=== PATIENT | female | born 1960 | race Caucasian/White ===

== ENCOUNTER 2017-07-12 05:24 | Emergency (ER) | payer BC, SELFPAY ==
[2017-07-12 05:29] VITALS: BP 166/97; PULSE 112; RESP 18; TEMP 36.5; O2SAT 96; BMI 48.9
--- NOTE | 2017-07-12 05:45 | CT_ITS ---
CT abdomen pelvis wo con CLINICAL INDICATION: Abdominal pain, epigastric pain ITS.REASON: pain ORDERING PHYSICIAN: Dario Cook MD PATIENT AGE: 57 years COMPARISON: 04/19/2014 TECHNIQUE: Axial images obtained with sagittal and coronal reformats. PROCEDURE: Oral Contrast: None IV Contrast: None . FINDINGS: Lung bases are clear. Diffuse hepatic steatosis. No focal liver lesion apparent. No radio opaque gallstones. The spleen, adrenal glands, pancreas, kidneys, ureters, and urinary bladder have an unremarkable unenhanced CT appearance. No intestinal obstruction or free air. No evidence of appendicitis or diverticulitis. There are scant colonic diverticula. No intestinal obstruction or free air. There is been prior fusion of L4 and L5. No acute bony anomalies. IMPRESSION: 1. No acute abdominal pelvic findings. 2. Fatty liver. 3. Postsurgical changes L4 and L5 Lower thorax: No acute finding ABDOMEN: Liver: No masses or biliary dilatation. Gallbladder: Nondistended. No radio opaque stones. Pancreas: No masses or peripancreatic fluid collections. Spleen: Unremarkable. Adrenals: Unremarkable Kidneys/ureters: No masses. No renal calculi. No hydronephrosis. No perinephric fluid collections. No ureteral dilatation or obvious ureteral calculi. Stomach bowel: Nondistended. No obvious mass or thickening. Appendix: No evidence of appendicitis. PELVIS: Reproductive: Unremarkable Bladder: Nondistended. No obvious stones or masses. ABDOMEN & PELVIS: Peritoneum: No abnormal fluid collections. No obvious inflammatory changes. No free air. Lymph nodes: No enlarged lymph nodes apparent. Vasculature: No evidence of abdominal aortic aneurysm. No retroperitoneal hemorrhage evident. Bones: No acute fracture IMPRESSION: Negative, no acute intra-abdominal or pelvic pathology apparent
--- NOTE | 2017-07-12 06:09 | HMH.EDGENADL ---
ED Disposition Clinical Impression: Abdominal pain Qualifiers: Abdominal location: epigastric Qualified Code(s): R10.13 - Epigastric pain Disposition: Home, Self-Care Condition on Discharge: Good Instructions: DI for Acute Abdomen Additional Instructions: call pcp for follow up - Critical Care Critical Care Time: No Attestation: On 07/12/17, the high probability of a clinically significant, sudden or life threatening deterioration of the following system(s) required my full and direct attention, intervention and personal management. The time I documented below is in addition to time spent performing reported procedures but includes the following listed in this critical care notation. Medical Decision Making - Medical Records Medical records reviewed: Yes: I reviewed the patient's medical records. Vital Signs: 07/12/17 05:29 Temperature 97.7 F Temperature Source Oral Pulse Rate [Left Radial] 112 H Respiratory Rate 18 Blood Pressure [Right Arm] 166/97 Blood Pressure Mean [Right Arm] 120 Blood Pressure Source [Right Arm] Automatic Cuff Blood Pressure Position [Right Arm] Sitting 02 Sat by Pulse Oximetry 96 Oxygen Delivery Method Room Air - Lab Data Lab results reviewed: Yes: I reviewed the patient's lab results. Lab Results 07/12/17 06:00: WBC 5.2, RBC 5.08, Hgb 14.6, Hct 44.0, MCV 86.6, MCH 28.8, MCHC 33.2, RDW 13.6, Plt Count 189, MPV 8.3, Neut % (Auto) 51.1, Lymph % (Auto) 39.4, Humphreys % (Auto) 5.4, Eos % (Auto) 3.2, Baso % (Auto) 0.8, Neut # (Auto) 2.6, Lymph # (Auto) 2.0, Humphreys # (Auto) 0.3, Eos # (Auto) 0.2, Baso # (Auto) 0.0 07/12/17 06:00: Sodium 145, Potassium 4.0, Chloride 109 H, Carbon Dioxide 27, Anion Gap 13.0, BUN 17, Creatinine 0.85, Estimated Creat Clear 64, Estimated GFR 69, Est GFR ( Amer) 84, Glucose 130 H, Calcium 10.0, Total Bilirubin 0.4, AST 53 H, ALT 78, Alkaline Phosphatase 69, Total Creatine Kinase 99, CK-MB (CK-2) < 0.5, CK-MB (CK-2) Rel Index 0.5, Troponin I < 0.02, Total Protein 7.8, Albumin 3.8, Globulin 4.0 H, Albumin/Globulin Ratio 1.0 L, Amylase 37 07/12/17 06:00: Lipase 156 Result diagrams: 07/12/17 06:00 07/12/17 06:00 Orders (Tests/Meds): ED MEDICATIONS Discontinued Medications Generic Name Dose Route Start Last Admin Trade Name Joaquina PRN Reason Stop Dose Admin Famotidine 20 mg 07/12/17 07:45 Pepcid 20mg/2ml Vial IV 07/12/17 07:46 ONCE ONE Metoclopramide HCl 10 mg 07/12/17 07:45 Reglan 10mg/2ml Vial IVP 07/12/17 07:46 ONCE ONE ORDERS Category Date Time Status CT abdomen pelvis wo con Stat Cat Scan 07/12/17 05:45 Taken - CT Data CT Scan: Abdomen, Pelvis Time Received: 07:[address] Reviewed: Yes: I have viewed the radiologist's interpretation Preliminary Findings: Normal/NAD - ECG Data Tracing #1 I reviewed this ECG and interpreted as documented below: Arrhythmias present: sinus tach Ischemic changes: non-specific ST-T wave changes - Kt Inquiry Pt receiving controlled substance: No General Adult HPI - General Chief complaint: Abdominal Pain Stated complaint: Upper Abdominal Pain Time Seen by Provider: 07/12/17 06:09 Mode of Arrival: Ambulatory Source of Information: Patient, Spouse, Medical Record Limitations: No Limitations Description of Symptoms (Recalled from ER Triage Doc. by RN): epigastric pain into chest - History of Present Illness HPI narrative: epigastric pain since yesterday with no fever or melena Onset (ago): day(s) Location: abdomen Radiation: non-radiation Severity: moderate - Related Data Home Medications Medication Instructions Recorded Confirmed Lovastatin [Lovastatin] 10 mg pe PO HS 07/12/17 07/12/17 dilTIAZem HCl [Diltiazem HCl] 120 mg PO DAILY 07/12/17 07/12/17 raNITIdine HCl [Ranitidine HCl] 150 mg PO DAILY 07/12/17 07/12/17 Allergies Allergy/AdvReac Type Severity Reaction Status Date / Time meperidine [From DEMEROL] Allergy Mild Verifi
[2017-07-12 06:16] LABS: Basophils % 0.8 % (0.1-2.0); Eosinophils # 0.2 K/mm3 (0.0-0.4); Eosinophils % 3.2 % (0.1-12.0); Hemoglobin 14.6 g/dL (12.2-16.2); Lymphocytes % 39.4 K/mm3 (10-50); Mean Corpuscular HGB Conc 33.2 g/dL (31.8-35.4); Mean Corpuscular Hemoglobin 28.8 pg (27.0-31.2); Mean Corpuscular Volume 86.6 fl (81-99); Mean Platelet Volume 8.3 fl (7.4-10.4); Monocytes # 0.3 K/mm3 (0.1-1.0); Monocytes % 5.4 % (1.7-9.3); Neutrophils # 2.6 K/mm3 (1.8-7.8); Neutrophils % 51.1 % (37.0-80.0); Platelet Count 189 K/mm3 (142-424); Red Blood Count 5.08 M/mm3 (4.20-5.40); Red Cell Distribution Width 13.6 % (11.5-17.5); White Blood Count 5.2 K/mm3 (4.8-10.8)
[2017-07-12 06:49] LABS: Alanine Aminotransferase 78 U/L (12-78); Albumin Level 3.8 gm/dL (3.4-5.0); Alkaline Phosphatase 69 U/L (46-116); Amylase 37 U/L (25-125); Aspartate Amino Transferase 53 U/L (15-37); Bilirubin,Total 0.4 mg/dL (0.2-1.0); Blood Urea Nitrogen 17 mg/dL (7-18); CKMB Relative Index 0.5 U/L (0-4.0); Carbon Dioxide 27 mmol/L (21.0-32.0); Chloride 109 mmol/L (98-107); Creatine Kinase 99 U/L (26-192); Creatine Kinase MB < 0.5 mg/ml (0.0-3.6); Creatinine Clearance Estimated 64 mL/min (0-300); Creatinine,Serum 0.85 mg/dL (0.55-1.02); Estimated Glomerular Filt Rate 69 ml/min (>60); GFR (African American) 84 ML/MIN (>60); Glucose 130 mg/dL (74-106); Sodium 145 mmol/L (136-145); Total Protein,Serum 7.8 gm/dL (6.4-8.2); Troponin I < 0.02 ng/ml (0.00-0.06)
[2017-07-12 06:51] LABS: Lipase 156 u/L (73-393)
[2017-07-12 07:54] VITALS: BP 121/70; PULSE 69; RESP 18; TEMP 36.6; O2SAT 98
[2017-07-12 08:30] VITALS: BP 121/70; PULSE 62; RESP 16; TEMP 36.6
== END 2017-07-12 08:29 | disposition home or self-care (01) ==
PROVIDERS: Emergency Provider Emergency Medicine; Family Provider Emergency Medicine
DX: R10.13 Epigastric pain (principal); Z85.828 Personal history of other malignant neoplasm of skin; Z79.899 Other long term (current) drug therapy
CPT/HCPCS: 74176; 80053; 82150; 82550; 82553; 83690; 84484; 85025; 93005; 93041; 96374; 96375; 99284

== ENCOUNTER 2017-09-03 12:10 | Emergency (ER) | payer BC, SELFPAY ==
[2017-09-03 12:31] VITALS: BP 180/90; PULSE 102; RESP 20; TEMP 37.2; O2SAT 98; BMI 48.9
--- NOTE | 2017-09-03 12:38 | HMH.EDUTC ---
[facility] [place] Disposition Clinical Impression: Vertigo Sinusitis Qualifiers: Sinusitis location: other Chronicity: unspecified Qualified Code(s): J32.9 - Chronic sinusitis, unspecified Disposition: Home, Self-Care Condition on Discharge: Good Instructions: Vertigo (Alternative Therapy), Sinusitis, Sinus Headache, DI for Sinusitis, DI for Vertigo Additional Instructions: Start antibiotic. Sinus infections may take 2-3 days to notice much improvement so be sure to use conservative measures as discussed for symptoms Flonase 2 spray in each nostril daily to help with nasal congestion, sinus an ear pressure/inflammation Lots of Fluids Sleep elevated Humidifer/vaporizer Prescriptions: cephALEXin [Keflex 500mg Cap] 500 mg PO BID #20 cap Fluticasone Propionate [Flonase 50mcg nasal spray 16gm] 2 spr NS DAILY #1 bottle Meclizine HCl [Meclizine 25mg Tab] 25 mg PO BID #20 tab Referrals: Dario Cook MD [Primary Care Provider] - As needed (follow up in 24-48 hours or sooner if no improvement or worsening of symptoms) Time of Disposition: 13:24 Medical Decision Making - Medical Records Medical records reviewed: Yes: I reviewed the patient's medical records. - Kt Inquiry Pt receiving controlled substance: No Kt was queried for this patient: No Vital Signs: 09/03/17 12:31 Temperature 99 F Temperature Source Oral Pulse Rate [Right Brachial] 102 H Respiratory Rate 20 Blood Pressure [Right Arm] 180/90 Blood Pressure Mean [Right Arm] 120 Blood Pressure Source [Right Arm] Automatic Cuff Blood Pressure Position [Right Arm] Sitting 02 Sat by Pulse Oximetry 98 Oxygen Delivery Method Room Air - Lab Data Lab results reviewed: Yes: I reviewed the patient's lab results. Orders (Tests/Meds): ED MEDICATIONS Discontinued Medications Generic Name Dose Route Start Last Admin Trade Name Freq PRN Reason Stop Dose Admin Meclizine HCl 25 mg 09/03/17 12:49 09/03/17 12:51 Antivert 25mg Tablet PO 09/03/17 12:50 25 mg ONCE ONE Administration - Reevaluation(s) Time: 13:19 Reevaluation #1: Patient states that her dizziness is feeling better after medication Patient state that she is allergic to Penicillins but able to take Cephosporins without complications or reactions [facility] [place] HPI - General Stated complaint: dizzy Time Seen by Provider: 09/03/17 12:45 Mode of Arrival: Family Vehicle Source of Information: Patient Limitations: No Limitations Description of Symptoms (Recalled from Triage Doc. by RN): C/O DIZZINESS SINCE YESTERDAY WITH BOTH EARS POPPING HEENT Symptoms (Recalled from RN notes): Yes Resp Symptoms (Recalled from RN notes): No Skin Symptoms (Recalled from RN notes): No MS Symptoms (Recalled from RN notes): No Functional Status (Recalled from RN notes): N/A - History of Present Illness Provider Complaint: Patient state thats that she has been having pain and pressure in her sinuses State that yesterday she bent over and noticed that when she raised back up she felt a little dizzy State that she has done this before and was on Antivert for a few months State that this morning she noticed that her ears was popping and she was still having some dizziness when she would move quickly so she would feel dizzy so she came in to get checked out - Related Data Home Medications Medication Instructions Recorded Confirmed Lovastatin [Lovastatin] 10 mg pe PO HS 07/12/17 09/03/17 dilTIAZem HCl [Diltiazem HCl] 120 mg PO DAILY 07/12/17 09/03/17 raNITIdine HCl [Ranitidine HCl] 150 mg PO DAILY 07/12/17 09/03/17 Previous Rx's Medication Instructions Recorded Fluticasone Propionate [Flonase 2 spr NS DAILY #1 bottle 09/03/17 50mcg nasal spray 16gm] Meclizine HCl [Meclizine 25mg Tab] 25 mg PO BID #20 tab 09/03/17 cephALEXin [Keflex 500mg Cap] 500 mg PO BID #20 cap 09/03/17 Allergies Allergy/AdvReac Type Severity Reaction Status Date / Time amoxicillin Allergy Intermediate Verified 08/06/17
--- NOTE | 2017-09-03 12:47 | ED_ITS ---
[facility] [place]position Clinical Impression: Vertigo Sinusitis Qualifiers: Sinusitis location: other Chronicity: unspecified Qualified Code(s): J32.9 - Chronic sinusitis, unspecified Disposition: Home, Self-Care Condition on Discharge: Good Instructions: Vertigo (Alternative Therapy), Sinusitis, Sinus Headache, DI for Sinusitis, DI for Vertigo Additional Instructions: Start antibiotic. Sinus infections may take 2-3 days to notice much improvement so be sure to use conservative measures as discussed for symptoms Flonase 2 spray in each nostril daily to help with nasal congestion, sinus an ear pressure/inflammation Lots of Fluids Sleep elevated Humidifer/vaporizer Prescriptions: cephALEXin [Keflex 500mg Cap] 500 mg PO BID #20 cap Fluticasone Propionate [Flonase 50mcg nasal spray 16gm] 2 spr NS DAILY #1 bottle Meclizine HCl [Meclizine 25mg Tab] 25 mg PO BID #20 tab Referrals: Dario Cook MD [Primary Care Provider] - As needed (follow up in 24-48 hours or sooner if no improvement or worsening of symptoms) Time of Disposition: 13:24 Medical Decision Making - Medical Records Medical records reviewed: Yes: I reviewed the patient's medical records. - Kt Inquiry Pt receiving controlled substance: No Kt was queried for this patient: No Vital Signs: 09/03/17 12:31 Temperature 99 F Temperature Source Oral Pulse Rate [Right Brachial] 102 H Respiratory Rate 20 Blood Pressure [Right Arm] 180/90 Blood Pressure Mean [Right Arm] 120 Blood Pressure Source [Right Arm] Automatic Cuff Blood Pressure Position [Right Arm] Sitting 02 Sat by Pulse Oximetry 98 Oxygen Delivery Method Room Air - Lab Data Lab results reviewed: Yes: I reviewed the patient's lab results. Orders (Tests/Meds): ED MEDICATIONS Discontinued Medications Generic Name Dose Route Start Last Admin Trade Name Freq PRN Reason Stop Dose Admin Meclizine HCl 25 mg 09/03/17 12:49 09/03/17 12:51 Antivert 25mg Tablet PO 09/03/17 12:50 25 mg ONCE ONE Administration - Reevaluation(s) Time: 13:19 Reevaluation #1: Patient states that her dizziness is feeling better after medication Patient state that she is allergic to Penicillins but able to take Cephosporins without complications or reactions [facility] [place] HPI - General Stated complaint: dizzy Time Seen by Provider: 09/03/17 12:45 Mode of Arrival: Family Vehicle Source of Information: Patient Limitations: No Limitations Description of Symptoms (Recalled from Triage Doc. by RN): C/O DIZZINESS SINCE YESTERDAY WITH BOTH EARS POPPING HEENT Symptoms (Recalled from RN notes): Yes Resp Symptoms (Recalled from RN notes): No Skin Symptoms (Recalled from RN notes): No MS Symptoms (Recalled from RN notes): No Functional Status (Recalled from RN notes): N/A - History of Present Illness Provider Complaint: Patient state thats that she has been having pain and pressure in her sinuses State that yesterday she bent over and noticed that when she raised back up she felt a little dizzy State that she has done this before and was on Antivert for a few months State that this morning she noticed that her ears was popping and she was still having some dizziness when she would move quickly so she would feel dizzy so she came in to get checked out - Related Data Home Medications Medication Instructions Recorded Confirm
[2017-09-03 13:36] VITALS: BP 178/86; PULSE 98; RESP 20; TEMP 37.2; O2SAT 98
== END 2017-09-03 13:37 | disposition home or self-care (01) ==
PROVIDERS: Emergency Provider Nurse Practitioner; Family Provider Emergency Medicine; PCP Emergency Medicine
DX: J32.9 Chronic sinusitis, unspecified (principal)
CPT/HCPCS: 99201

== ENCOUNTER → 2017-11-21 11:26 | Outpatient (REF) | payer BC, SELFPAY ==
[2017-11-21 14:13] LABS: Alanine Aminotransferase 77 U/L (12-78); Albumin Level 3.8 gm/dL (3.4-5.0); Albumin/Globulin Ratio 1.1 (1.1-1.8); Alkaline Phosphatase 75 U/L (46-116); Anion Gap 16.1 mEq/L (5-15); Aspartate Amino Transferase 38 U/L (15-37); Bilirubin,Total 0.5 mg/dL (0.2-1.0); Blood Urea Nitrogen 16 mg/dL (7-18); Calcium 9.7 mg/dL (8.5-10.1); Carbon Dioxide 26 mmol/L (21.0-32.0); Chloride 106 mmol/L (98-107); Cholesterol 178 mg/dL (140-200); Creatinine,Serum 0.75 mg/dL (0.55-1.02); Estimated Glomerular Filt Rate 80 ml/min (>60); GFR (African American) 97 ML/MIN (>60); Globulin 3.4 gm/dl (1.3-3.2); Glucose 105 mg/dL (74-106); HDL Cholesterol 44 mg/dL (29-89); LDL Cholesterol 115 mg/dL (0-130); Potassium 4.1 mmoL/L (3.5-5.1); Sodium 144 mmol/L (136-145); T4 (Thyroxine) 7.5 ug/dl (4.7-13.3); Thyroid Stimulating Hormone 1.45 uIU/ml (0.358-3.740); Total Protein,Serum 7.2 gm/dL (6.4-8.2); Triglycerides 96 mg/dL (30-200); VLDL Cholesterol 19 mg/dL (0-40)
[2017-11-21 14:18] LABS: Basophils % 0.5 % (0.1-2.0); Eosinophils # 0.2 K/mm3 (0.0-0.4); Eosinophils % 3.2 % (0.1-12.0); Hematocrit 47.2 % (37.0-47.0); Hemoglobin 14.8 g/dL (12.2-16.2); Lymphocytes % 39.9 K/mm3 (10-50); Mean Corpuscular HGB Conc 31.4 g/dL (31.8-35.4); Mean Corpuscular Hemoglobin 27.5 pg (27.0-31.2); Mean Corpuscular Volume 87.4 fl (81-99); Mean Platelet Volume 9.5 fl (7.4-10.4); Monocytes # 0.3 K/mm3 (0.1-1.0); Neutrophils # 2.5 K/mm3 (1.8-7.8); Neutrophils % 49.4 % (37.0-80.0); Platelet Count 192 K/mm3 (142-424); Red Blood Count 5.41 M/mm3 (4.20-5.40); Red Cell Distribution Width 13.6 % (11.5-17.5)
[2017-11-21 16:02] LABS: Hemoglobin A1C 5.3 % (0.0-7.0)
[2017-11-24 13:30] LABS: Vitamin D 25 Hydroxy 20.1 ng/mL (30.0-100.0)
== END ==
LOC: LAB 11:26
PROVIDERS: Visit Provider Physician Assistant
DX: Z86.39 Personal history of other endocrine, nutritional and metabolic disease (principal)
CPT/HCPCS: 80053; 80061; 82652; 83036; 84436; 84443; 85025

== ENCOUNTER → 2018-05-23 12:59 | Outpatient (CLI) | payer BC, SELFPAY ==
--- NOTE | 2018-05-23 13:06 | XR_ITS ---
XR wrist LT min 3V HISTORY knot at base of thumb ITS.REASON: Ganglion cyst ORDERING PHYSICIAN: Rupinder Gonzalez MD PATIENT AGE: 57 years Comparison: None FINDINGS: No fracture or dislocation. No lytic or blastic change. There is normal mineralization.. The joint spaces are well-preserved. No significant degenerative/arthritic changes. No erosive changes evident.. IMPRESSION: Negative wrist
== END ==
PROVIDERS: PCP Family Medicine; Visit Provider Orthopaedic Surgery
DX: M67.40 Ganglion, unspecified site (principal)
CPT/HCPCS: 73110

== ENCOUNTER → 2018-07-18 10:35 | Outpatient (CLI) | payer BC, SELFPAY ==
[2018-07-18 11:14] LABS: Creatinine,Serum 0.87 mg/dL (0.55-1.02); Estimated Glomerular Filt Rate 67 ml/min (>60); GFR (African American) 81 ML/MIN (>60)
--- NOTE | 2018-07-18 11:14 | XR_ITS ---
EXAM: XR lumbar spine bending only HISTORY: ITS.REASON: RADICULOPATHY ORDERING PHYSICIAN: ZENAIDA Howell PATIENT AGE: 58 years COMPARISON: None FINDINGS: Lateral flexion view of the lumbar spine shows no abnormal subluxation with flexion. Interpedicular screws are present at L4 and L5 with disc spacer device with good alignment. IMPRESSION: Postsurgical change with no abnormal subluxation in flexion
== END ==
LOC: RAD 10:37
PROVIDERS: Neurological Surgery; PCP Family Medicine; Visit Provider Physician Assistant
DX: M54.16 Radiculopathy, lumbar region (principal)
CPT/HCPCS: 36415; 72120; 82565

== ENCOUNTER → 2018-07-19 08:56 | Outpatient (CLI) | payer BC, SELFPAY | PROVIDERS: PCP Family Medicine; Visit Provider Neurological Surgery | DX: M54.16 Radiculopathy, lumbar region (principal) ==

== ENCOUNTER → 2018-08-14 14:37 | Outpatient (POV) | payer BC, SELFPAY | PROVIDERS: Visit Provider Dermatology | DX: Z00.00 Encounter for general adult medical examination without abnormal findings (principal) ==

== ENCOUNTER → 2018-10-05 14:34 | Outpatient (CLI) | payer BC, SELFPAY ==
[2018-10-05 15:11] LABS: Creatinine,Serum 0.95 mg/dL (0.55-1.02); Estimated Glomerular Filt Rate 61 ml/min (>60); GFR (African American) 73 ML/MIN (>60)
== END ==
PROVIDERS: Visit Provider Neurological Surgery
DX: I10 Essential (primary) hypertension (principal)
CPT/HCPCS: 36415; 82565

== ENCOUNTER 2018-10-12 23:09 | Emergency (ER) | payer BC, SELFPAY ==
[2018-10-12 23:18] VITALS: BP 156/90; PULSE 112; RESP 16; TEMP 36.8; O2SAT 95; BMI 49.8
--- NOTE | 2018-10-13 00:49 | HMH.EDGENADL ---
ED Disposition Clinical Impression: Hx of retained foreign body fully removed Disposition: Home, Self-Care Condition on Discharge: Good Referrals: Moises Escobar MD [Primary Care Provider] - Time of Disposition: 00:53 - Critical Care Critical Care Time: No Attestation: On 10/12/18, the high probability of a clinically significant, sudden or life threatening deterioration of the following system(s) required my full and direct attention, intervention and personal management. The time I documented below is in addition to time spent performing reported procedures but includes the following listed in this critical care notation. Medical Decision Making - Medical Records Medical records reviewed: Yes: I reviewed the patient's medical records. - Kt Inquiry Pt receiving controlled substance: No Kt was queried for this patient: No Vital Signs: 10/12/18 23:18 Temperature 98.3 F Temperature Source Temporal Artery Scan Pulse Rate [Right Brachial] 112 H Respiratory Rate 16 Blood Pressure [Right Arm] 156/90 H Blood Pressure Mean [Right Arm] 112 02 Sat by Pulse Oximetry 95 Oxygen Delivery Method Room Air - Lab Data Lab results reviewed: Yes: I reviewed the patient's lab results. General Adult HPI - General Chief complaint: PAIN Stated complaint: Toothpick in ball of RT foot Time Seen by Provider: 10/12/18 23:20 Mode of Arrival: Ambulatory Source of Information: Patient Limitations: No Limitations Description of Symptoms (Recalled from ER Triage Doc. by RN): Pt stepped on a toothpick and part of it broke off in the top part of her right foot - Related Data Home Medications Medication Instructions Recorded Confirmed diazepam 2 mg tablet 2 mg PO DAILY PRN tab 11/21/17 06/10/18 Cholecalciferol (Vitamin D3) 1,000 unit PO DAILY 12/01/17 06/10/18 [Vitamin D3 1,000 Unit Cap] Ergocalciferol (Vitamin D2) 50,000 unit PO QWEEK 12/01/17 06/10/18 [Drisdol] dilTIAZem HCl [Diltiazem HCl] 120 mg PO DAILY 01/05/18 06/10/18 levothyroxine 25 mcg tablet 25 mcg PO DAILY 02/15/18 06/10/18 Lovastatin 10 mg PO DAILY 03/15/18 06/10/18 Previous Rx's Medication Instructions Recorded doxycycline monohydrate 100 mg 100 mg PO BID 7 Days #14 cap 04/29/18 capsule promethazine-DM 6.25 mg-15 mg/5 mL 5 ml PO Q6H PRN 6 Days #118 ml 04/30/18 oral syrup hydroxyzine HCl 25 mg tablet 25 mg PO QID PRN #30 tab 05/27/18 Cyclobenzaprine HCl [Flexeril 10mg 10 mg PO Q8HP PRN 30 Days #90 tab 06/10/18 tablet] predniSONE [Prednisone 50mg Tab] 50 mg PO DAILY #5 tab 06/10/18 Allergies Allergy/AdvReac Type Severity Reaction Status Date / Time amoxicillin Allergy Intermediate Verified 10/12/18 23:23 fluticasone [From Flonase] Allergy Intermediate swelling Verified 10/12/18 23:23 of lips meperidine [From DEMEROL] Allergy Mild Verified 10/12/18 23:23 morphine [MORPHINE] Allergy Mild Verified 10/12/18 23:23 Penicillins Allergy Verified 10/12/18 23:23 [facility] History - Hepatitis A Screen Drug use history?: No High risk sexual behaviors?: No History of sexually transmitted infection?: No Currently employed?: No Childcare worker?: No Do you have indoor plumbing?: Yes Do you have electricity?: Yes Attestation statement:: This patient has been screened for Hepatitis A risk factors. I have reviewed the patient's past medical history: Yes Medical History: Reports:: Anxiety, Hyperlipidemia, Hypertension Denies:: Cancer, Diabetes Mellitus Type 1, Diabetes Mellitus Type 2, Internal Pacemaker, MRSA, Seizures Other Medical History: Reports: Anemia, Sinus Problems, Other Laterality Cases: Bilateral: Other Other Surgeries: Yes: Hysterectomy-Total. No: Pacemaker Amputation: No Fractures: No Comment: back surgery x 3 - Social History Smoking Status: Never smoker Alcohol Intake: never Alcohol Intake Frequency:: holidays/special occasions only Substance Use Type: denies use Occupational Status: [employer]
--- NOTE | 2018-10-13 00:52 | ED_ITS ---
ED Disposition Clinical Impression: Hx of retained foreign body fully removed Disposition: Home, Self-Care Condition on Discharge: Good Referrals: Moises Escobar MD [Primary Care Provider] - Time of Disposition: 00:53 - Critical Care Critical Care Time: No Attestation: On 10/12/18, the high probability of a clinically significant, sudden or life threatening deterioration of the following system(s) required my full and direct attention, intervention and personal management. The time I documented below is in addition to time spent performing reported procedures but includes the following listed in this critical care notation. Medical Decision Making - Medical Records Medical records reviewed: Yes: I reviewed the patient's medical records. - Kt Inquiry Pt receiving controlled substance: No Kt was queried for this patient: No Vital Signs: 10/12/18 23:18 Temperature 98.3 F Temperature Source Temporal Artery Scan Pulse Rate [Right Brachial] 112 H Respiratory Rate 16 Blood Pressure [Right Arm] 156/90 H Blood Pressure Mean [Right Arm] 112 02 Sat by Pulse Oximetry 95 Oxygen Delivery Method Room Air - Lab Data Lab results reviewed: Yes: I reviewed the patient's lab results. General Adult HPI - General Chief complaint: PAIN Stated complaint: Toothpick in ball of RT foot Time Seen by Provider: 10/12/18 23:20 Mode of Arrival: Ambulatory Source of Information: Patient Limitations: No Limitations Description of Symptoms (Recalled from ER Triage Doc. by RN): Pt stepped on a toothpick and part of it broke off in the top part of her right foot - Related Data Home Medications Medication Instructions Recorded Confirmed diazepam 2 mg tablet 2 mg PO DAILY PRN tab 11/21/17 06/10/18 Cholecalciferol (Vitamin D3) 1,000 unit PO DAILY 12/01/17 06/10/18 [Vitamin D3 1,000 Unit Cap] Ergocalciferol (Vitamin D2) 50,000 unit PO QWEEK 12/01/17 06/10/18 [Drisdol] dilTIAZem HCl [Diltiazem HCl] 120 mg PO DAILY 01/05/18 06/10/18 levothyroxine 25 mcg tablet 25 mcg PO DAILY 02/15/18 06/10/18 Lovastatin 10 mg PO DAILY 03/15/18 06/10/18 Previous Rx's Medication Instructions Recorded doxycycline monohydrate 100 mg 100 mg PO BID 7 Days #14 cap 04/29/18 capsule promethazine-DM 6.25 mg-15 mg/5 mL 5 ml PO Q6H PRN 6 Days #118 ml 04/30/18 oral syrup hydroxyzine HCl 25 mg tablet 25 mg PO QID PRN #30 tab 05/27/18 Cyclobenzaprine HCl [Flexeril 10mg 10 mg PO Q8HP PRN 30 Days #90 tab 06/10/18 tablet] predniSONE [Prednisone 50mg Tab] 50 mg PO DAILY #5 tab 06/10/18 Allergies Allergy/AdvReac Type Severity Reaction Status Date / Time amoxicillin Allergy Intermediate Verified 10/12/18 23:23 fluticasone [From Flonase] Allergy Intermediate swelling Verified 10/12/18 23:23 of lips meperidine [From DEMEROL] Allergy Mild Verified 10/12/18 23:23 morphine [MORPHINE] Allergy Mild Verified 10/12/18 23:23 Penicillins Allergy Verified 10/12/18 23:23 H History - Hepatitis A Screen Drug use history?: No High risk sexual behaviors?: No History of sexually transmitted infection
[2018-10-13 01:01] VITALS: BP 154/87; PULSE 72; RESP 16; TEMP 36.9; O2SAT 98
== END 2018-10-13 01:02 | disposition home or self-care (01) ==
PROVIDERS: Emergency Provider Emergency Medicine; PCP Family Medicine
DX: S90.851A Superficial foreign body, right foot, initial encounter (principal); W22.8XXA Striking against or struck by other objects, initial encounter; Y92.019 Unspecified place in single-family (private) house as the place of occurrence of the external cause
CPT/HCPCS: 10120; 90471; 99282

== ENCOUNTER → 2018-10-17 09:51 | Outpatient (CLI) | payer BC, SELFPAY ==
--- NOTE | 2018-10-17 09:58 | XR_ITS ---
XR foot RT min 3V HISTORY: ITS.REASON: FOREIGN BODY IN RT FOOT ORDERING PHYSICIAN: ZENAIDA Nunez PATIENT AGE: 58 years COMPARISON: None FINDINGS: No fracture or dislocation. No lytic or blastic change. There is normal mineralization.. The joint spaces are well-preserved. No significant degenerative/arthritic changes. No erosive changes evident. There is a faint rounded opacity overlying the subcutaneous region along the dorsum of the mid metatarsal area. This is of uncertain etiology. Please correlate as to patient's area of suspected foreign body. This may even be related to artifact. No soft tissue gas. IMPRESSION: Small ill-defined opacity measuring 2 mm overlies the dorsum of the midfoot at the mid metatarsal region of questionable clinical significance otherwise negative. If this is the clinical area of concern, then CT may be of further value to confirm the presence or absence of a foreign body
== END ==
LOC: RAD 09:53
PROVIDERS: PCP Family Medicine; Visit Provider Physician Assistant
DX: S90.851D Superficial foreign body, right foot, subsequent encounter (principal)
CPT/HCPCS: 73630

== ENCOUNTER → 2018-12-27 14:45 | Outpatient (CLI) | payer BC, SELFPAY ==
--- NOTE | 2018-12-27 14:56 | CT_ITS ---
CT foot RT wo con INDICATION: Pain and swelling, recent foreign body removal. ITS.REASON: SWELLING ORDERING PHYSICIAN: ZENAIDA Nunez PATIENT AGE: 58 years COMPARISON: None TECHNIQUE: Contrast Used:None Oral Contrast: None Axial images were obtained. Sagittal and coronal reformatted images are reviewed as well. All CT scans at the facility use one or more dose reduction, viz: automated exposure control, ma/kV adjustment per patient size (including targeted exams where dose is matched to indication, i.e. head), or iterative reconstruction technique. FINDINGS: A BB was used to vishal the area of focal pain and swelling. This is along the plantar surface of the foot at the base of the proximal phalanx of the first digit. There is some focal subcutaneous soft tissue swelling in this area. No radio opaque foreign body is however evidence. There is some minimal artifact from placed BB.. There is also some mild subcutaneous soft tissue swelling along the fourth metatarsal phalangeal junction plantar surface. No fractures or dislocation apparent. No bony erosive process evident. IMPRESSION: 1. No radio opaque foreign body evident. No evidence of osteomyelitis. 2. There is some focal subcutaneous soft tissue swelling deep to the placed BB system with an area of inflammation or infection. No obvious abscess.
== END ==
LOC: RAD 14:45
PROVIDERS: PCP Family Medicine; Visit Provider Physician Assistant
DX: R60.9 Edema, unspecified (principal)
CPT/HCPCS: 73700

== ENCOUNTER → 2019-11-20 14:47 | Outpatient (POV) | payer BC, SELFPAY | PROVIDERS: PCP Family Medicine | DX: Z00.00 Encounter for general adult medical examination without abnormal findings (principal) ==

== ENCOUNTER 2019-11-28 04:39 | Emergency (ER) | payer BC, SELFPAY ==
--- NOTE | 2019-11-28 04:48 | ECG_ITS ---
APPROVED REPORT Exam: Resting ECG HR:101 bpm ECG Measurements Heart Rate 101 AXES NE 148 P 41 QRSd 80 QRS 65 QT 328 T 81 QTc 425 <Conclusion> Sinus tachycardia ST abnormality, possible digitalis effect Abnormal ECG Electronically signed by : Michael Flores, 11/29/2019 17:42:15
[2019-11-28 05:02] VITALS: BP 169/97; PULSE 108; RESP 16; TEMP 37; O2SAT 94; BMI 49.4
--- NOTE | 2019-11-28 05:11 | XR_ITS ---
PROCEDURE: XR CHEST 2V CLINICAL HISTORY: arrythmias COMPARISON: CXR CHEST(2 VIEWS-NOT PORTABLE) from 07/09/2015 CXR2V XR chest 2V from 12/01/2017 CXR1VP XR chest portable from 01/05/2018 FINDINGS: The cardiomediastinal silhouette and pulmonary vascularity are within normal limits. The lungs are clear without infiltrates, suspicious nodules, or pleural effusions. No acute bony abnormalities. IMPRESSION: No acute findings. Dictated by: Dr. Santino Castillo MD 11/28/2019 08:[address] Santino Castillo MD in [place] 11/28/2019 08:00
[2019-11-28 05:20] LABS: Basophils # 0.1 K/mm3 (0-0.2); Basophils % 0.6 % (0.1-2.0); Eosinophils # 0.2 K/mm3 (0.0-0.4); Eosinophils % 2.8 % (0.1-12.0); Hematocrit 44.2 % (37.0-47.0); Hemoglobin 14.7 g/dL (12.2-16.2); Mean Corpuscular HGB Conc 33.3 g/dL (31.8-35.4); Mean Corpuscular Hemoglobin 29.7 pg (27.0-31.2); Mean Corpuscular Volume 89.2 fl (81-99); Mean Platelet Volume 8.5 fl (7.4-10.4); Monocytes # 0.4 K/mm3 (0.1-1.0); Monocytes % 5.9 % (1.7-9.3); Neutrophils # 2.8 K/mm3 (1.8-7.8); Neutrophils % 37.7 % (37.0-80.0); Platelet Count 230 K/mm3 (142-424); Red Blood Count 4.95 M/mm3 (4.20-5.40); Red Cell Distribution Width 14.3 % (11.5-17.5); White Blood Count 7.5 K/mm3 (4.8-10.8)
[2019-11-28 05:21] LABS: Chloride 106 mmol/L (98-107); Sodium 140 mmol/L (136-145)
[2019-11-28 05:22] LABS: MANUAL DIFFERENTIAL MANUAL DIFFERENTIAL (MANUAL DIFF); Potassium 3.8 mmoL/L (3.5-5.1)
[2019-11-28 05:25] LABS: Anion Gap 11.8 mEq/L (5-15); Blood Urea Nitrogen 15 mg/dl (7-17); Calcium 9.7 mg/dl (8.4-10.2); Carbon Dioxide 26 mmol/L (22.0-30.0); Creatinine Clearance Estimated 66 mL/min (50-200); Estimated Glomerular Filt Rate 74 ml/min (>60); GFR (African American) 89 ML/MIN (>60); Glucose 144 mg/dl (74-100)
[2019-11-28 05:42] LABS: Eosinophils % 3 % (0-3); Lymphocytes % 57 % (10-50); Monocytes % 3 % (2-9); Neutrophils % 37 % (42-76); Platelet Estimate Normal; Stomatocytes 1+; Total Cells Counted 100
[2019-11-28 05:46] LABS: Troponin I < 0.01 ng/ml (0.00-0.034)
[2019-11-28 05:55] VITALS: BP 152/81; PULSE 86; RESP 16; O2SAT 96
[2019-11-28 06:01] LABS: Thyroid Stimulating Hormone 6.87 uIU/mL (0.465-4.68)
--- NOTE | 2019-11-28 06:38 | HMH.EDARPALP ---
ED Disposition Clinical Impression: Palpitations, Abnormal thyroid screen (blood) Disposition: Home, Self-Care Condition on Discharge: Good Instructions: DI for Palpitations Additional Instructions: call pcp today for eval Referrals: Moises Escobar MD [Primary Care Provider] - - Critical Care Critical Care Time: No Attestation: On 11/28/19, the high probability of a clinically significant, sudden or life threatening deterioration of the following system(s) required my full and direct attention, intervention and personal management. The time I documented below is in addition to time spent performing reported procedures but includes the following listed in this critical care notation. Medical Decision Making - Medical Records Medical records reviewed: Yes: I reviewed the patient's medical records. - Kt Inquiry Pt receiving controlled substance: No Vital Signs: 11/28/19 05:02 11/28/19 05:55 Temperature 98.6 F Temperature Source Oral Pulse Rate [Right] 108 H 86 Respiratory Rate 16 16 Blood Pressure [Right Arm] 169/97 H 152/81 H Blood Pressure Mean [Right Arm] 121 104 Blood Pressure Source [Right Arm] Automatic Cuff Blood Pressure Position [Right Arm] Sitting 02 Sat by Pulse Oximetry 94 L 96 Oxygen Delivery Method Room Air Room Air - Lab Data Lab results reviewed: Yes: I reviewed the patient's lab results. Lab Results 11/28/19 04:55: WBC 7.5, RBC 4.95, Hgb 14.7, Hct 44.2, MCV 89.2, MCH 29.7, MCHC 33.3, RDW 14.3, Plt Count 230, MPV 8.5, Neut % (Auto) 37.7, Lymph % (Auto) 53.0 H, [place] % (Auto) 5.9, Eos % (Auto) 2.8, Baso % (Auto) 0.6, Neut # (Auto) 2.8, Lymph # (Auto) 4.0, [place] # (Auto) 0.4, Eos # (Auto) 0.2, Baso # (Auto) 0.1, Total Counted 100, Neutrophils % (Manual) 37 L, Lymphocytes % (Manual) 57 H, Monocytes % (Manual) 3, Eosinophils % (Manual) 3, Platelet Estimate Normal, Stomatocytes 1+ 11/28/19 04:55: Sodium 140, Potassium 3.8, Chloride 106, Carbon Dioxide 26, Anion Gap 11.8, BUN 15, Creatinine 0.80, Estimated Creat Clear 66, Estimated GFR 74, Est GFR ( Amer) 89, Glucose 144 H, Calcium 9.7, Troponin I < 0.01 11/28/19 04:55: TSH 6.87 H, Thyroxine (T4) 11.0 Result diagrams: 11/28/19 04:55 11/28/19 04:55 Orders (Tests/Meds): ED MEDICATIONS Generic Name Dose Route Start Last Admin Trade Name Freq PRN Reason Stop Dose Admin Sodium Chloride 1,000 mls @ 999 mls/hr 11/28/19 05:15 11/28/19 05:22 Sod Chlor 0.9% 1000ml Bag IV 11/28/19 06:15 999 mls/hr .Q1H1M GIANA Administration ORDERS Category Date Time Status XR chest 2V Stat Exams 11/28/19 05:11 Taken Troponin I Q3H Lab 11/28/19 08:15 Ordered Troponin I Q3H Lab 11/28/19 11:15 Ordered - Radiology Data #1 Image(s): Chest Image Reviewed: Yes I reviewed the patient's radiology image Preliminary Findings: Normal/NAD - ECG Data Tracing #1 Normal Sinus Rhythm: Yes Ischemic changes: non-specific ST-T wave changes Arrhythmia/Palpitations HPI - General Chief Complaint: Arrhythmia/Palpitations Stated Complaint: Heart skipping beats Time Seen by Provider: 11/28/19 05:30 Mode of Arrival: Ambulatory Source of Information: Patient, Spouse, Medical Record Limitations: No Limitations - History of Present Illness HPI narrative: pt with episodes of inc hr w/o syncope or chest pain MD complaint: heart racing Onset (ago): hour(s) Duration: intermittent Severity: moderate Context: occurred during rest Associated symptoms: denies other symptoms - Related Data Home Medications Medication Instructions Recorded Confirmed diazepam 2 mg tablet 2 mg PO DAILY PRN tab 11/21/17 11/28/19 Cholecalciferol (Vitamin D3) 1,000 unit PO DAILY 12/01/17 11/28/19 [Vitamin D3 1,000 Unit Cap] Lovastatin 10 mg PO DAILY 03/15/18 11/28/19 diltiazem HCl 120 mg tablet 120 mg PO QHS tab 03/05/19 11/28/19 Hydrocodone/Acetaminophen [[employer] [place] [employer] 1 each PO BID PRN 11/28/19 11/28/19 5-325 Tablet] Pre
[2019-11-28 06:46] VITALS: BP 163/82; PULSE 81; RESP 16; TEMP 37; O2SAT 96
== END 2019-11-28 06:53 | disposition home or self-care (01) ==
PROVIDERS: Emergency Provider Emergency Medicine; PCP Family Medicine
DX: R00.2 Palpitations (principal); R79.89 Other specified abnormal findings of blood chemistry; R55 Syncope and collapse; F41.9 Anxiety disorder, unspecified; E03.9 Hypothyroidism, unspecified; E78.5 Hyperlipidemia, unspecified; I10 Essential (primary) hypertension; K21.9 Gastro-esophageal reflux disease without esophagitis; Z79.899 Other long term (current) drug therapy; Z88.0 Allergy status to penicillin; Z88.5 Allergy status to narcotic agent; Z90.79 Acquired absence of other genital organ(s)
CPT/HCPCS: 71046; 80048; 84436; 84443; 84484; 85007; 85025; 93005; 96365; 99284

== ENCOUNTER 2020-09-05 12:43 | Emergency (ER) | payer BC, SELFPAY ==
[2020-09-05 12:53] VITALS: BP 204/87; PULSE 99; RESP 16; TEMP 36.9; O2SAT 98; BMI 51.0
--- NOTE | 2020-09-05 12:58 | XR_ITS ---
PROCEDURE: XR ANKLE RT MIN 3V CLINICAL INDICATION: ROLLED ANKLE COMPARISON: No exams were available for comparison FINDINGS: There is moderate diffuse soft tissue swelling both medially and laterally but more diffuse and prominent laterally. The medial and lateral malleolus appear intact. The ankle mortise is normal. There is a small spur of the calcaneus at the insertion of the plantar tendon a tiny spur at the insertion of Achilles tendon. IMPRESSION: Soft tissue injury, no fracture seen Dictated by: Dr. Santino Castillo MD 09/05/2020 14:12 Dr. Santino Castillo MD in [place] 09/05/2020 14:12
--- NOTE | 2020-09-05 13:32 | HMH.EDUTC ---
[facility] [place]ression: Right ankle strain Qualifiers: Encounter type: initial encounter Qualified Code(s): S96.911A - Strain of unspecified muscle and tendon at ankle and foot level, right foot, initial encounter Disposition: Home, Self-Care Condition on Discharge: Good Instructions: DI for Ankle Sprain Additional Instructions: Weightbearing as tolerated rest Ice with cold pack for 20 minutes remove 20 minutes may repeat for comfort Paolo wrap for support and swelling no less in the shower. Be sure not too tight but not to lose either Elevate with ankle above your heart as much as possible to help reduce swelling and therefore pain Ibuprofen every 6 hours as needed for pain or inflammation. If needs something more you can take Tylenol every 4 hours as needed as long as her primary care has told he was okayed for you to take both. If improving any do not need to follow-up you can bring begin exercising 2-3 weeks after injury. Follow-up immediately if new or worsening symptoms or no noticeable improvement over the next 3-5 days. Referrals: Moises Escobar MD [Primary Care Provider] - Luke Davila MD [Staff Physician] - Time of Disposition: 14:04 Medical Decision Making - Kt Inquiry Pt receiving controlled substance: No Vital Signs: 09/05/20 12:53 Temperature 98.5 F Temperature Source Oral Pulse Rate [Right] 99 H Respiratory Rate 16 Blood Pressure [Right Arm] 204/87 H Blood Pressure Mean [Right Arm] 126 Blood Pressure Source [Right Arm] Automatic Cuff Blood Pressure Position [Right Arm] Sitting 02 Sat by Pulse Oximetry 98 Oxygen Delivery Method Room Air Orders (Tests/Meds): ORDERS Category Date Time Status XR ankle RT min 3V Stat Exams 09/05/20 12:58 Taken - Radiology Data #1 Image(s): Ankle Image Reviewed: Yes I reviewed the patient's radiology image w/the ED provider Preliminary Findings: No Fracture Seen [facility] [place] - General Chief complaint: [facility] Stated complaint: [id number] injured right ankle Time Seen by Provider: 09/05/20 13:56 Mode of Arrival: Ambulatory Source of Information: Patient Limitations: No Limitations Description of Symptoms (Recalled from Triage Doc. by RN): pt was walking and trying to push a dog toy out of the way with her foot and rolled her R ankle. HEENT Symptoms (Recalled from RN notes): No Resp Symptoms (Recalled from RN notes): No Skin Symptoms (Recalled from RN notes): No MS Symptoms (Recalled from RN notes): Yes (R ankle pain) Functional Status (Recalled from RN notes): na - History of Present Illness Provider Complaint: 60 yr old male presnets for rt ankle pain. Pt states was walking and trying to push a dog toy out of the way with her foot and rolled her R ankle. Onset (ago): minute(s) - Related Data Home Medications Medication Instructions Recorded Confirmed diazepam 2 mg tablet 2 mg PO DAILY PRN tab 11/21/17 11/28/19 Cholecalciferol (Vitamin D3) 1,000 unit PO DAILY 12/01/17 11/28/19 [Vitamin D3 1,000 Unit Cap] Lovastatin 10 mg PO DAILY 03/15/18 11/28/19 diltiazem HCl 120 mg tablet 120 mg PO QHS tab 03/05/19 11/28/19 Hydrocodone/Acetaminophen [[place] 1 each PO BID PRN 11/28/19 11/28/19 5-325 Tablet] Previous Rx's Medication Instructions Recorded ergocalciferol (vitamin D2) 1,250 50,000 unit PO QWEEK #14 cap 12/04/18 mcg (50,000 unit) capsule Allergies Allergy/AdvReac Type Severity Reaction Status Date / Time amoxicillin Allergy Intermediate Verified 09/05/20 12:53 fluticasone [From Flonase] Allergy Intermediate swelling Verified 09/05/20 12:53 of lips meperidine [From DEMEROL] Allergy Mild Verified 09/05/20 12:53 morphine [MORPHINE] Allergy Mild Verified 09/05/20 12:53 Penicillins Allergy Verified 09/05/20 12:53 - Worker's Comp Is this a Worker's Comp case?: No [facility] History - Hepatitis A Screen Drug use history?: No High risk sexual behaviors?: No History
[2020-09-05 14:12] VITALS: BP 183/85; PULSE 86; RESP 15; TEMP 36.6
== END 2020-09-05 14:16 | disposition home or self-care (01) ==
PROVIDERS: Emergency Provider Nurse Practitioner Family; PCP Family Medicine
DX: S96.911A Strain of unspecified muscle and tendon at ankle and foot level, right foot, initial encounter (principal); X50.1XXA Overexertion from prolonged static or awkward postures, initial encounter; Y92.019 Unspecified place in single-family (private) house as the place of occurrence of the external cause; K21.9 Gastro-esophageal reflux disease without esophagitis; E78.5 Hyperlipidemia, unspecified; I10 Essential (primary) hypertension; F41.9 Anxiety disorder, unspecified; E03.9 Hypothyroidism, unspecified; Z79.899 Other long term (current) drug therapy
CPT/HCPCS: 73610; 99202; G0463

== ENCOUNTER 2020-09-27 11:06 | Emergency (ER) | payer BC, SELFPAY ==
[2020-09-27 11:10] VITALS: BP 179/77; PULSE 84; RESP 20; TEMP 36.6; O2SAT 95; BMI 51.0
--- NOTE | 2020-09-27 11:46 | HMH.EDUTC ---
[facility] [place] Clinical Impression: Otitis media Qualifiers: Otitis media type: unspecified Laterality: right Qualified Code(s): H66.91 - Otitis media, unspecified, right ear Disposition: Home, Self-Care Condition on Discharge: Good Instructions: Middle Ear Infection, Cephalexin Additional Instructions: *Monitor Temp, Over the counter Motrin or Tylenol as directed/as needed Tylenol every 4 hours and Motrin every 6 hours (as long as your family doctor has told you that you can take it) for fever or pain. and straight to ER if unable to lower temp less than 101.0 after medication given Take medication as prescribed *Warm fluids like tea with honey may help to soothe the throat and open up sinuses *Sleep elevated *Humidifier/Vaporizer Over the counter Allergy medication may help with allergy symptoms Return if needed Follow up IMMEDIATELY for new or worsening symptoms or no Noticeable improvement over the next 48-72 hours. 911 for difficulty breathing or swallowing Prescriptions: cephALEXin [cephALEXin 500mg capsule*] 500 mg PO BID 7 Days #14 cap Transmission Status: Pending to [facility] # predniSONE [Deltasone 10mg tablet] 10 mg PO BID 5 Days #10 tab Transmission Status: Pending to [facility] # Referrals: Moises Escobar MD [Primary Care Provider] - As needed Time of Disposition: 11:58 Medical Decision Making - Kt Inquiry Pt receiving controlled substance: No Kt was queried for this patient: No Vital Signs: 09/27/20 11:10 Temperature 97.8 F Temperature Source Temporal Artery Scan Pulse Rate [Right Brachial] 84 Respiratory Rate 20 Blood Pressure [Right Arm] 179/77 H Blood Pressure Mean [Right Arm] 111 Blood Pressure Source [Right Arm] Automatic Cuff Blood Pressure Position [Right Arm] Sitting 02 Sat by Pulse Oximetry 95 Oxygen Delivery Method Room Air Medical Decision Narrative: Patient states that she has taken Cephalexin and Prednisone in the past without complications or reactions [facility] [place]PI - General Stated complaint: right earache Time Seen by Provider: 09/27/20 11:46 Mode of Arrival: Ambulatory Source of Information: Patient Limitations: No Limitations Description of Symptoms (Recalled from Triage Doc. by RN): PATIENT C/O RIGHT EAR AND FACE PAIN X 2 DAYS. STATES DECREASED HEARING THAT COMES AND GOES HEENT Symptoms (Recalled from RN notes): Yes Resp Symptoms (Recalled from RN notes): No Skin Symptoms (Recalled from RN notes): No MS Symptoms (Recalled from RN notes): No Functional Status (Recalled from RN notes): WNL - History of Present Illness Provider Complaint: Patient states that she has been having pain in her right ear and feeling of pressure like it may be full of fluid States that at times it feels like the pain in her will shoot down into her jaw area and face States that she is not having any numbness and tingling but pain in her ear and jaw is worse sometimes when she is chewing or opening her mouth - Related Data Home Medications Medication Instructions Recorded Confirmed diazepam 2 mg tablet 2 mg PO DAILYP PRN tab 11/21/17 09/27/20 Lovastatin 10 mg PO DAILY 03/15/18 09/27/20 diltiazem HCl 120 mg tablet 120 mg PO QHS tab 03/05/19 09/27/20 Previous Rx's Medication Instructions Recorded cephALEXin [cephALEXin 500mg 500 mg PO BID 7 Days #14 cap 09/27/20 capsule*] predniSONE [Deltasone 10mg tablet] 10 mg PO BID 5 Days #10 tab 09/27/20 Allergies Allergy/AdvReac Type Severity Reaction Status Date / Time amoxicillin Allergy Intermediate Verified 09/05/20 12:53 fluticasone [From Flonase] Allergy Intermediate swelling Verified 09/05/20 12:53 of lips meperidine [From DEMEROL] Allergy Mild Verified 09/05/20 12:53 morphine [MORPHINE] Allergy Mild Verified 09/05/20 12:53 Penicillins Allergy Verified 09/05/20 12:53 - Worker's Comp Is this a Worker's Comp case?: No [facility] History - Hepatitis A Screen
[2020-09-27 12:03] VITALS: BP 179/77; PULSE 84; RESP 20; TEMP 36.6; O2SAT 95
== END 2020-09-27 12:06 | disposition home or self-care (01) ==
PROVIDERS: Emergency Provider Nurse Practitioner; PCP Family Medicine
DX: H66.91 Otitis media, unspecified, right ear (principal); E78.5 Hyperlipidemia, unspecified; I10 Essential (primary) hypertension; E03.9 Hypothyroidism, unspecified; K21.9 Gastro-esophageal reflux disease without esophagitis; Z79.899 Other long term (current) drug therapy
CPT/HCPCS: 99202; G0463

== ENCOUNTER → 2020-10-09 13:38 | Outpatient (CLI) | payer BC, SELFPAY ==
[2020-10-09 14:30] LABS: Basophils % 0.5 % (0.1-2.0); Eosinophils # 0.2 K/mm3 (0.0-0.4); Eosinophils % 3.1 % (0.1-12.0); Hemoglobin 14.3 g/dL (12.2-16.2); Lymphocytes # 2.5 K/mm3 (0.7-4.5); Lymphocytes % 40.7 % (10-50); Mean Corpuscular HGB Conc 31.9 g/dL (31.8-35.4); Mean Corpuscular Hemoglobin 28.2 pg (27.0-31.2); Mean Corpuscular Volume 88.4 fl (81-99); Mean Platelet Volume 8.2 fl (7.4-10.4); Monocytes # 0.4 K/mm3 (0.1-1.0); Monocytes % 5.7 % (1.7-9.3); Neutrophils # 3.1 K/mm3 (1.8-7.8); Neutrophils % 50.1 % (37.0-80.0); Platelet Count 198 K/mm3 (142-424); Red Blood Count 5.09 M/mm3 (4.20-5.40); Red Cell Distribution Width 13.7 % (11.5-17.5); White Blood Count 6.1 K/mm3 (4.8-10.8)
== END ==
PROVIDERS: PCP Family Medicine; Visit Provider Physician Assistant
DX: Z20.822 Contact with and (suspected) exposure to COVID-19 (principal); U07.1 COVID-19
CPT/HCPCS: 36415; 85025; U0003

== ENCOUNTER → 2021-01-08 14:07 | Outpatient (CLI) | payer BC, SELFPAY ==
[2021-01-08 14:27] LABS: Adenovirus,PCR Not Detected (NotDetected); Bordetella Pertussis Not Detected (NotDetected); Chlamydophila Pneumoniae, PCR Not Detected (NotDetected); Coronavirus 19, PCR Not Detected (NotDetected); Coronavirus 229E Not Detected (NotDetected); Coronavirus NL63 Not Detected (NotDetected); Coronavirus OC43 Not Detected (NotDetected); Coronovirus HKU1,PCR Not Detected (NotDetected); Human Metapneumovirus Not Detected (NotDetected); Influenza A, PCR Not Detected (NotDetected); Influenza AH1, 2009 Not Detected (NotDetected); Influenza AH1, PCR Not Detected (NotDetected); Influenza AH3,PCR Not Detected (NotDetected); Influenza B, PCR Not Detected (NotDetected); Mycoplasma Pneumoniae, PCR Not Detected (NotDetected); Parainfluenza 1, PCR Not Detected (NotDetected); Parainfluenza 2, PCR Not Detected (NotDetected); Parainfluenza 3, PCR Not Detected (NotDetected); Parainfluenza 4, PCR Not Detected (NotDetected); Respiratory Syncytial Virus Not Detected (NotDetected); Rhinovirus/Enterovirus Not Detected (NotDetected)
[2021-01-08 14:34] LABS: Basophils # 0.1 K/mm3 (0-0.2); Basophils % 1.2 % (0.1-2.0); Eosinophils # 0.2 K/mm3 (0.0-0.4); Eosinophils % 3.5 % (0.1-12.0); Hematocrit 43.8 % (37.0-47.0); Hemoglobin 14.5 g/dL (12.2-16.2); Lymphocytes # 2.8 K/mm3 (0.7-4.5); Lymphocytes % 40.7 % (10-50); Mean Corpuscular HGB Conc 33.1 g/dL (31.8-35.4); Mean Corpuscular Hemoglobin 28.8 pg (27.0-31.2); Mean Platelet Volume 8.7 fl (7.4-10.4); Monocytes # 0.2 K/mm3 (0.1-1.0); Neutrophils # 3.5 K/mm3 (1.8-7.8); Neutrophils % 51.6 % (37.0-80.0); Platelet Count 226 K/mm3 (142-424); Red Blood Count 5.03 M/mm3 (4.20-5.40); Red Cell Distribution Width 14.5 % (11.5-17.5); White Blood Count 6.8 K/mm3 (4.8-10.8)
== END ==
LOC: COVID.OUT 14:09
PROVIDERS: PCP Family Medicine; Visit Provider Physician Assistant
DX: Z20.822 Contact with and (suspected) exposure to COVID-19 (principal)
CPT/HCPCS: 36415; 85025; 87581; 87633; 87798

== ENCOUNTER 2021-02-13 18:45 | Emergency (ER) | payer BC, SELFPAY ==
[2021-02-13] VITALS (7 sets, daily range): BP systolic 166–219; BP diastolic 92–106; PULSE 101–118; RESP 16–20; TEMP 37; O2SAT 95–97; BMI 51.8
--- NOTE | 2021-02-13 18:50 | ECG_ITS ---
APPROVED REPORT Exam: Resting ECG HR:116 bpm ECG Measurements Heart Rate 116 AXES LA 146 P 36 QRSd 82 QRS 63 QT 326 T 68 QTc 453 Conclusion Sinus tachycardia Nonspecific ST and T wave abnormality Abnormal ECG Electronically signed by : Michael Flores MD 02/15/2021 20:41:25
--- NOTE | 2021-02-13 18:57 | XR_ITS ---
PROCEDURE INFORMATION: Exam: XR Chest Exam date and time: 02/13/2021 6:57 PM Age: 60 years old Clinical indication: Other: Palpitations TECHNIQUE: Imaging protocol: XR of the chest. Views: 2 views. COMPARISON: CR XR CHEST 2V 11/28/2019 5:16 AM FINDINGS: Lungs: Unremarkable. No consolidation. Pleural spaces: Unremarkable. No pleural effusion. No pneumothorax. Heart/Mediastinum: Unremarkable. No cardiomegaly. Bones/joints: Unremarkable. IMPRESSION: No acute findings.
[2021-02-13 19:28] LABS: Basophils # 0.1 K/mm3 (0-0.2); Basophils % 1.1 % (0.1-2.0); Eosinophils # 0.3 K/mm3 (0.0-0.4); Hemoglobin 14.6 g/dL (12.2-16.2); Lymphocytes # 3.8 K/mm3 (0.7-4.5); Lymphocytes % 42.6 % (10-50); Mean Corpuscular HGB Conc 32.6 g/dL (31.8-35.4); Mean Corpuscular Hemoglobin 29.5 pg (27.0-31.2); Mean Corpuscular Volume 90.5 fl (81-99); Mean Platelet Volume 9.2 fl (7.4-10.4); Monocytes # 0.6 K/mm3 (0.1-1.0); Monocytes % 6.2 % (1.7-9.3); Neutrophils # 4.2 K/mm3 (1.8-7.8); Neutrophils % 47.1 % (37.0-80.0); Platelet Count 252 K/mm3 (142-424); Red Blood Count 4.97 M/mm3 (4.20-5.40); Red Cell Distribution Width 13.9 % (11.5-17.5); White Blood Count 8.8 K/mm3 (4.8-10.8)
[2021-02-13 19:37] LABS: Alanine Aminotransferase 59 U/L (12-78); Albumin Level 4.5 g/dl (3.5-5.0); Albumin/Globulin Ratio 1.3 (1.1-1.8); Alkaline Phosphatase 75 U/L (38-126); Anion Gap 15.8 mEq/L (5-15); Aspartate Amino Transferase 48 U/L (14-36); Bilirubin,Total 0.3 mg/dl (0.2-1.3); Blood Urea Nitrogen 15 mg/dl (7-17); Calcium 9.6 mg/dl (8.4-10.2); Carbon Dioxide 28 mmol/L (22.0-30.0); Chloride 105 mmol/L (98-107); Creatinine Clearance Estimated 65 mL/min (50-200); Estimated Glomerular Filt Rate 73 ml/min (>60); GFR (African American) 89 ML/MIN (>60); Globulin 3.6 g/dL (1.3-3.2); Glucose 100 mg/dl (74-100); Potassium 3.8 mmoL/L (3.5-5.1); Sodium 145 mmol/L (136-145); Total Protein,Serum 8.1 g/dl (6.3-8.2)
[2021-02-13 19:50] LABS: Troponin I < 0.01 ng/ml (0.00-0.034)
--- NOTE | 2021-02-13 20:11 | HMH.EDARPALP ---
ED Disposition Clinical Impression: Hypertensive emergency Disposition: Home, Self-Care Condition on Discharge: Good Instructions: DI for Shortness of Breath Additional Instructions: call pcp for follow up Referrals: Provider,Referral, [Primary Care Provider] - - Critical Care Critical Care Time: No Attestation: On 02/13/21, the high probability of a clinically significant, sudden or life threatening deterioration of the following system(s) required my full and direct attention, intervention and personal management. The time I documented below is in addition to time spent performing reported procedures but includes the following listed in this critical care notation. Medical Decision Making - Medical Records Medical records reviewed: Yes: I reviewed the patient's medical records. - Kt Inquiry Pt receiving controlled substance: No Vital Signs: 02/13/21 18:56 Temperature 98.6 F Temperature Source Oral Pulse Rate [Right] 118 H Respiratory Rate 20 Blood Pressure [Right Arm] 219/94 H Blood Pressure Mean [Right Arm] 135 02 Sat by Pulse Oximetry 97 Oxygen Delivery Method Room Air - Lab Data Lab results reviewed: Yes: I reviewed the patient's lab results. Lab Results 02/13/21 19:15: WBC 8.8, RBC 4.97, Hgb 14.6, Hct 45.0, MCV 90.5, MCH 29.5, MCHC 32.6, RDW 13.9, Plt Count 252, MPV 9.2, Neut % (Auto) 47.1, Lymph % (Auto) 42.6, [place] % (Auto) 6.2, Eos % (Auto) 3.0, Baso % (Auto) 1.1, Neut # (Auto) 4.2, Lymph # (Auto) 3.8, [place] # (Auto) 0.6, Eos # (Auto) 0.3, Baso # (Auto) 0.1 02/13/21 19:15: Sodium 145, Potassium 3.8, Chloride 105, Carbon Dioxide 28, Anion Gap 15.8 H, BUN 15, Creatinine 0.80, Estimated Creat Clear 65, Estimated GFR 73, Est GFR ( Amer) 89, Glucose 100, Calcium 9.6, Total Bilirubin 0.3, AST 48 H, ALT 59, Alkaline Phosphatase 75, Troponin I < 0.01, Total Protein 8.1, Albumin 4.5, Globulin 3.6 H, Albumin/Globulin Ratio 1.3 02/13/21 19:15: ESR 37 H 02/13/21 19:15: C-Reactive Protein 8.0 H, NT-Pro-B Natriuret Pep 25.8, Procalcitonin 0.114 02/13/21 19:15: TSH 4.09, Thyroxine (T4) 8.7 02/13/21 21:04: Troponin I < 0.01 Result diagrams: 02/13/21 19:15 02/13/21 19:15 Orders (Tests/Meds): ED MEDICATIONS Discontinued Medications Generic Name Dose Route Start Last Admin Trade Name Freq PRN Reason Stop Dose Admin Hydralazine HCl 10 mg 02/13/21 21:05 02/13/21 21:09 Hydralazine 20mg/Ml Vial IV 02/13/21 21:06 10 mg ONCE ONE Administration ORDERS Category Date Time Status Troponin I Q3H Lab 02/14/21 01:00 Ordered - Radiology Data #1 Image(s): Chest Image Reviewed: Yes I have reviewed radiologist's interpretation Preliminary Findings: Normal/NAD - ECG Data Tracing #1 Arrhythmias present: sinus tach Ischemic changes: non-specific ST-T wave changes - CECILIA Score for Non-Stemi Age of Patient: 50-59 years old Heart Rate: 110-149 bpm Systolic Blood Pressure: 200 mmhg or higher Serum Creatinine: 0.80-1.19 mg/dl CHF [place] Class: I-No CHF Other Risk Factors: None Non-Stemi Risk Score: 72 Medical Decision Narrative: has elevated bp and has palpitation - stable exam and labs - improved Arrhythmia/Palpitations HPI - General Chief Complaint: Shortness of Breath/Dyspnea Stated Complaint: PALPITATIONS Time Seen by Provider: 02/13/21 20:00 Mode of Arrival: Ambulatory Source of Information: Patient, Medical Record Limitations: No Limitations - History of Present Illness HPI narrative: over the last day has irreg and fast hr - no chest pain or syncope MD complaint: palpitations Onset (ago): hour(s) Duration: intermittent Severity: moderate Context: occurred during rest Associated symptoms: denies other symptoms - Related Data Home Medications Medication Instructions Recorded Confirmed diazepam 2 mg tablet 2 mg PO DAILYP PRN tab 11/21/17 02/13/21 Lovastatin 10 mg PO DAILY 03/15/18 02/13/21 diltiazem HCl 120 mg tablet 120 mg P
[2021-02-13 20:37] LABS: NT Pro Brain Natriuretic Pep. 25.8 pg/mL (0-125)
[2021-02-13 20:40] LABS: Erythrocyte Sedimentation Rate 37 mm/hr (0-30)
[2021-02-13 20:45] LABS: Procalcitonin 0.114 ng/mL (0.0-2.0)
[2021-02-13 20:50] LABS: T4 (Thyroxine) 8.7 ug/dl (5.53-11.0)
[2021-02-13 21:04] LABS: Thyroid Stimulating Hormone 4.09 uIU/mL (0.465-4.68)
[2021-02-13 21:38] LABS: Troponin I < 0.01 ng/ml (0.00-0.034)
== END 2021-02-13 21:47 | disposition home or self-care (01) ==
PROVIDERS: Emergency Medicine; Emergency Provider Emergency Medicine
DX: I16.1 Hypertensive emergency (principal); K21.9 Gastro-esophageal reflux disease without esophagitis; F41.9 Anxiety disorder, unspecified; E78.5 Hyperlipidemia, unspecified; E03.9 Hypothyroidism, unspecified; Z88.0 Allergy status to penicillin; Z88.5 Allergy status to narcotic agent
CPT/HCPCS: 71046; 80053; 83880; 84145; 84436; 84443; 84484; 85025; 85651; 86140; 93005; 96374; 99283

== ENCOUNTER 2021-11-10 14:29 | Emergency (ER) | payer BC, SELFPAY ==
[2021-11-10 14:30] VITALS: BP 192/99; PULSE 101; RESP 18; TEMP 36.4; O2SAT 95; BMI 51.2
--- NOTE | 2021-11-10 14:39 | CT_ITS ---
FINAL REPORT TECHNIQUE: Axial imaging of the lumbar spine was obtained without contrast. Sagittal and coronal reformatted images were also obtained and reviewed. This study was performed with techniques to keep radiation doses as low as reasonably achievable (ALARA). Individualized dose reduction techniques using automated exposure control or adjustment of mA and/or kV according to the patient''s size were employed. CLINICAL HISTORY: trauma, c/o low back pain, hx of sx FINDINGS: There is fusion of L4-L5. There is no fracture. There is mild anterolisthesis of L3 on L4 and mild retrolisthesis of L5 on S1. There is vacuum disc phenomenon at L5-S1. There is no evidence of significant central canal stenosis. T12-L1: No evidence of central canal stenosis or neural foraminal narrowing. L1-L2: No evidence of central canal stenosis or neural foraminal narrowing. L2-L3: There is an annular disc bulge with facet arthropathy. L3-L4: There is an annular disc bulge with facet arthropathy. There is mild right and moderate left neural foraminal narrowing. L4-L5: There is fusion of L4-L5. There is mild right neural foraminal narrowing. L5-S1: An annular bulge is present. There is a right paracentral disc protrusion. There is right L5 nerve root impingement. There is severe right and mild left neural foraminal narrowing. IMPRESSION: Multilevel degenerative change without acute bony abnormality. Reviewed, Interpreted and Dictated by Perez Lozada III, MD Transcribed by Lian Perdomo Authenticated and [facility]
--- NOTE | 2021-11-10 15:07 | HMH.EDGENADL ---
ED Disposition Clinical Impression: Lumbar spine strain Qualifiers: Encounter type: initial encounter Qualified Code(s): S39.012A - Strain of muscle, fascia and tendon of lower back, initial encounter Disposition: Home, Self-Care Condition on Discharge: Good Instructions: DI for Lumbar Radiculopathy Prescriptions: methocarbamoL [Methocarbamol 500mg Tablet] 1,000 mg PO TID 10 Days #60 tab Transmission Status: Pending to [facility] #[id number] Referrals: Moises Escobar MD [Primary Care Provider] - - Critical Care Critical Care Time: No Attestation: On 11/10/21, the high probability of a clinically significant, sudden or life threatening deterioration of the following system(s) required my full and direct attention, intervention and personal management. The time I documented below is in addition to time spent performing reported procedures but includes the following listed in this critical care notation. Medical Decision Making - Medical Records Medical records reviewed: Yes: I reviewed the patient's medical records. - Kt Inquiry Pt receiving controlled substance: Yes Kt was queried for this patient: Yes Reference #:: [id number] Risks and benefits of using a controlled substance: were discussed with pt by me Vital Signs: 11/10/21 14:30 11/10/21 15:30 Temperature 97.6 F Temperature Source Oral Pulse Rate 93 H Pulse Rate [Left Radial] 101 H Respiratory Rate 18 Blood Pressure 193/107 H Blood Pressure [Right Arm] 192/99 H Blood Pressure Mean 159 Blood Pressure Mean [Right Arm] 130 Blood Pressure Source [Right Arm] Automatic Cuff Blood Pressure Position [Right Arm] Sitting 02 Sat by Pulse Oximetry 95 95 Oxygen Delivery Method Room Air Orders (Tests/Meds): ED MEDICATIONS Discontinued Medications Generic Name Dose Route Start Last Admin Trade Name Freq PRN Reason Stop Dose Admin Hydrocodone Bitart/Acetaminophen 2 tab 11/10/21 14:39 11/10/21 15:38 Hydrocodone/Apap 5/325 Mg Tablet PO 11/10/21 14:40 2 tab ONCE ONE Administration - CT Data CT Scan: L-Spine Time Received: 16:[address] Reviewed: Yes: I have reviewed the patient's CT results, I have viewed the radiologist's interpretation Findings Narrative: IMPRESSION: Multilevel degenerative change without acute bony abnormality. - Reevaluation(s) Time: 16:11 Reevaluation #1: On reevaluation, the patient is feeling better. Repeat exam is improved. Range of motion has improved. CT scan did not show any acute fracture or injury. Likely secondary to lumbar strain. Patient will follow up with PCP. Given strict return precautions. Verbalized understanding. Medical Decision Narrative: 61-year-old female presented to the emergency department some lower back pain. Patient's findings are concerning for lumbar strain. Imaging will be obtained. Patient provided analgesics. General Adult HPI - General Chief complaint: PAIN Stated complaint: back pain Time Seen by Provider: 11/10/21 14:35 Mode of Arrival: Ambulatory Limitations: No Limitations Description of Symptoms (Recalled from ER Triage Doc. by RN): c/o right back pain that goes into her right leg. PT denies any injury but thinks she could of hurt it coughing. - History of Present Illness HPI narrative: 61-year-old female presented to the emergency department with some back pain. Patient states that she has had the symptoms for the last 3 days or so. Patient has a history of chronic back issues due to previous injuries. Patient states that she was twisting to get out of bed a few days ago when she started getting some significant pain in the lower lumbar spine. Patient states that she has been using ice and heat, however has not been improving. States that the pain is worse on the right side. Radiates down into her right leg. She not having any continence. Denies any fevers or chills. No injections. She not have any headache o
[2021-11-10 15:30] VITALS: BP 193/107; PULSE 93; O2SAT 95
[2021-11-10 15:35] VITALS: BP 176/97; PULSE 92; O2SAT 95
--- NOTE | 2021-11-10 15:39 | PC.NURSE ---
Kimmy Brand, RN at
[2021-11-10 16:00] VITALS: BP 178/106; PULSE 90; O2SAT 94
[2021-11-10 16:22] VITALS: BP 168/90; PULSE 91; RESP 18; TEMP 36.4; O2SAT 96
== END 2021-11-10 16:23 | disposition home or self-care (01) ==
PROVIDERS: Emergency Provider Emergency Medicine; PCP Family Medicine
DX: S39.012A Strain of muscle, fascia and tendon of lower back, initial encounter (principal); K21.9 Gastro-esophageal reflux disease without esophagitis; I10 Essential (primary) hypertension; E78.5 Hyperlipidemia, unspecified; F41.9 Anxiety disorder, unspecified; Z88.0 Allergy status to penicillin; Z88.5 Allergy status to narcotic agent; Z79.899 Other long term (current) drug therapy
CPT/HCPCS: 72131; 99284

== ENCOUNTER → 2021-11-30 10:46 | Outpatient (POV) | payer BC, SELFPAY | PROVIDERS: Visit Provider Dermatology | DX: Z00.00 Encounter for general adult medical examination without abnormal findings (principal) ==

== ENCOUNTER 2021-12-27 04:32 | Emergency (ER) | payer BC, SELFPAY ==
[2021-12-27] VITALS (8 sets, daily range): BP systolic 157–198; BP diastolic 88–95; PULSE 91–115; RESP 15–21; TEMP 36.7; O2SAT 91–96; BMI 50.3
--- NOTE | 2021-12-27 | ECG_ITS ---
APPROVED REPORT Exam: Resting ECG HR:115 bpm ECG Measurements Heart Rate [address] 158 P 51 QRSd 93 QRS 81 QT 338 T 76 QTc 406 Conclusion SINUS TACHYCARDIA INCOMPLETE RIGHT BUNDLE BRANCH BLOCK [90+ ms QRS DURATION, TERMINAL R IN V1/V2, 40+ ms S IN I/aVL/V4/V5/V6] MODERATE ST DEPRESSION [0.05+ mV ST DEPRESSION] ABNORMAL ECG UNCONFIRMED REPORT Electronically signed by : Michael Flores MD 12/27/2021 16:44:55
--- NOTE | 2021-12-27 04:39 | XR_ITS ---
PROCEDURE INFORMATION: Exam: XR Chest Exam date and time: 12/27/2021 5:00 AM Age: 61 years old Clinical indication: Sternal or substernal pain; Additional info: Chest pain epigastric pain. TECHNIQUE: Imaging protocol: Radiologic exam of the chest. Views: 1 view. COMPARISON: CR XR CHEST 2V 02/13/2021 6:55 PM FINDINGS: Lungs: Unremarkable. No consolidation. Pleural spaces: Unremarkable. No pleural effusion. No pneumothorax. Heart/Mediastinum: Unremarkable. No cardiomegaly. Bones/joints: Unremarkable. IMPRESSION: No acute findings.
--- NOTE | 2021-12-27 04:39 | CT_ITS ---
PROCEDURE INFORMATION: Exam: CT Abdomen And Pelvis Without Contrast Exam date and time: 12/27/2021 4:42 AM Age: 61 years old Clinical indication: Abdominal pain; Epigastric; Additional info: Chest pain epigastric pain diarrhea TECHNIQUE: Imaging protocol: Computed tomography of the abdomen and pelvis without contrast. Radiation optimization: All CT scans at this facility use at least one of these dose optimization techniques: automated exposure control; mA and/or kV adjustment per patient size (includes targeted exams where dose is matched to clinical indication); or iterative reconstruction. COMPARISON: [facility] CT abdomen pelvis wo con 07/12/2017 6:17 AM FINDINGS: Liver: Normal. No mass. Gallbladder and bile ducts: Normal. No calcified stones. No ductal dilation. Pancreas: Some peripancreatic edema is seen surrounding the head and uncinate process. No fluid collection is noted. No obvious pancreatic necrosis is seen. There is some fatty replacement of the pancreas Spleen: Normal. No splenomegaly. Adrenal glands: Normal. No mass. Kidneys and ureters: Normal. No hydronephrosis. Stomach and bowel: Unremarkable. No obstruction. No mucosal thickening. Appendix: No evidence of appendicitis. Intraperitoneal space: Unremarkable. No free air. No significant fluid collection. Vasculature: Unremarkable. No abdominal aortic aneurysm. Lymph nodes: Unremarkable. No enlarged lymph nodes. Urinary bladder: Unremarkable as visualized. Reproductive: Status post hysterectomy.. Bones/joints: Unremarkable. No acute fracture. Soft tissues: Unremarkable. IMPRESSION: 1. Peripancreatic edema adjacent to the head and uncinate process versus fatty infiltration of the pancreas. Correlation with pancreatic enzymes for pancreatitis recommended. 2. Diffuse hepatic steatosis. 3. No other acute process identified.
[2021-12-27 04:50] LABS: Basophils # 0.1 K/mm3 (0-0.2); Basophils % 1.1 % (0.1-2.0); Eosinophils # 0.7 K/mm3 (0.0-0.4); Eosinophils % 6.9 % (0.1-12.0); Hematocrit 45.8 % (37.0-47.0); Hemoglobin 15.1 g/dL (12.2-16.2); Lymphocytes # 4.7 K/mm3 (0.7-4.5); Lymphocytes % 48.6 % (10-50); Mean Corpuscular Hemoglobin 28.9 pg (27.0-31.2); Mean Corpuscular Volume 87.6 fl (81-99); Mean Platelet Volume 8.2 fl (7.4-10.4); Monocytes # 0.6 K/mm3 (0.1-1.0); Monocytes % 6.1 % (1.7-9.3); Neutrophils # 3.6 K/mm3 (1.8-7.8); Neutrophils % 37.3 % (37.0-80.0); Platelet Count 245 K/mm3 (142-424); Red Blood Count 5.23 M/mm3 (4.20-5.40); Red Cell Distribution Width 13.6 % (11.5-17.5); White Blood Count 9.6 K/mm3 (4.8-10.8)
[2021-12-27 05:01] LABS: Alanine Aminotransferase 67 U/L (12-78); Albumin Level 4.3 g/dl (3.5-5.0); Albumin/Globulin Ratio 1.3 (1.1-1.8); Alkaline Phosphatase 93 U/L (38-126); Amylase 52 U/L (30-110); Anion Gap 13.4 mEq/L (5-15); Aspartate Amino Transferase 72 U/L (14-36); Bilirubin,Total 0.2 mg/dl (0.2-1.3); Blood Urea Nitrogen 12 mg/dl (7-17); Calcium 9.3 mg/dl (8.4-10.2); Carbon Dioxide 27 mmol/L (22.0-30.0); Chloride 105 mmol/L (98-107); Creatinine Clearance Estimated 65 mL/min (50-200); Estimated Glomerular Filt Rate 73 ml/min (>60); GFR (African American) 89 ML/MIN (>60); Globulin 3.4 g/dL (1.3-3.2); Glucose 137 mg/dl (74-100); Lipase 62 U/L (23-300); Potassium 3.4 mmoL/L (3.5-5.1); Sodium 142 mmol/L (136-145); Total Protein,Serum 7.7 g/dl (6.3-8.2)
[2021-12-27 05:06] LABS: C-Reactive Protein 15.2 mg/L (0-4)
[2021-12-27 05:20] LABS: Procalcitonin 0.148 ng/mL (0.0-2.0)
[2021-12-27 05:22] LABS: Troponin I < 0.01 ng/ml (0.00-0.034)
[2021-12-27 05:23] LABS: Erythrocyte Sedimentation Rate 5 mm/hr (0-30)
--- NOTE | 2021-12-27 05:39 | [facility]H.EDCP ---
ED Disposition Clinical Impression: Atypical chest pain Disposition: Home, Self-Care Condition on Discharge: Good Instructions: DI for Atypical Chest Pain Additional Instructions: see pcp for follow up Referrals: Moises Escobar MD [Primary Care Provider] - - Critical Care Critical Care Time: No Attestation: On 12/27/21, the high probability of a clinically significant, sudden or life threatening deterioration of the following system(s) required my full and direct attention, intervention and personal management. The time I documented below is in addition to time spent performing reported procedures but includes the following listed in this critical care notation. Medical Decision Making - Medical Records Medical records reviewed: Yes: I reviewed the patient's medical records. - Kt Inquiry Pt receiving controlled substance: No Vital Signs: 12/27/21 04:32 12/27/21 05:00 12/27/21 05:29 Temperature 98.1 F Temperature Source Oral Pulse Rate 100 H 98 H Pulse Rate [Left Radial] 115 H Respiratory Rate 18 19 15 Blood Pressure 185/94 H 198/88 H Blood Pressure [Right Arm] 189/92 H Blood Pressure Mean 109 110 Blood Pressure Mean [Right Arm] 124 Blood Pressure Source [Right Arm] Automatic Cuff Blood Pressure Position [Right Arm] Sitting 02 Sat by Pulse Oximetry 96 93 L 91 L Oxygen Delivery Method Room Air 12/27/21 06:02 12/27/21 06:30 12/27/21 06:59 Temperature Temperature Source Pulse Rate 101 H 95 H Pulse Rate [Left Radial] Respiratory Rate 17 21 Blood Pressure 185/91 H 168/91 H 157/95 H Blood Pressure [Right Arm] Blood Pressure Mean 122 116 109 Blood Pressure Mean [Right Arm] Blood Pressure Source [Right Arm] Blood Pressure Position [Right Arm] 02 Sat by Pulse Oximetry 94 L 93 L Oxygen Delivery Method 12/27/21 07:30 Temperature Temperature Source Pulse Rate 93 H Pulse Rate [Left Radial] Respiratory Rate 20 Blood Pressure 183/93 H Blood Pressure [Right Arm] Blood Pressure Mean 117 Blood Pressure Mean [Right Arm] Blood Pressure Source [Right Arm] Blood Pressure Position [Right Arm] 02 Sat by Pulse Oximetry 92 L Oxygen Delivery Method - Lab Data Lab results reviewed: Yes: I reviewed the patient's lab results. Lab Results 12/27/21 04:35: WBC 9.6, RBC 5.23, Hgb 15.1, Hct 45.8, MCV 87.6, MCH 28.9, MCHC 33.0, RDW 13.6, Plt Count 245, MPV 8.2, Neut % (Auto) 37.3, Lymph % (Auto) 48.6, [place] % (Auto) 6.1, Eos % (Auto) 6.9, Baso % (Auto) 1.1, Neut # (Auto) 3.6, Lymph # (Auto) 4.7 H, [place] # (Auto) 0.6, Eos # (Auto) 0.7 H, Baso # (Auto) 0.1, ESR 5 12/27/21 04:35: Sodium 142, Potassium 3.4 L, Chloride 105, Carbon Dioxide 27, Anion Gap 13.4, BUN 12, Creatinine 0.80, Estimated Creat Clear 65, Estimated GFR 73, Est GFR ( Amer) 89, Glucose 137 H, Calcium 9.3, Total Bilirubin 0.2, AST 72 H, ALT 67, Alkaline Phosphatase 93, Troponin I < 0.01, C-Reactive Protein 15.2 H, Total Protein 7.7, Albumin 4.3, Globulin 3.4 H, Albumin/Globulin Ratio 1.3, Amylase 52, Lipase 62, Procalcitonin 0.148 12/27/21 04:35: SARS-CoV-2 (PCR) Not detected, Influenza A Untype (PCR) Not detected, Influenza Type B (PCR) Not detected 12/27/21 06:00: Urine Color Yellow, Urine Appearance Clear, Urine pH 6.0, Ur Specific [place] <= 1.005, Urine Protein Negative, Urine Glucose (UA) Negative, Urine Ketones Negative, Urine Blood Negative, Urine Nitrate Negative, Urine Bilirubin Negative, Urine Urobilinogen 0.2, Ur Leukocyte Esterase 2+ A, Urine RBC None, Urine WBC 3-5, Ur Squamous Epith Cells 3-5, Urine Bacteria Trace 12/27/21 07:34: Troponin I < 0.01 Result diagrams: 12/27/21 04:35 12/27/21 04:35 Orders (Tests/Meds): ED MEDICATIONS Discontinued Medications Generic Name Dose Route Start Last Admin Trade Name Freq PRN Reason Stop Dose Admin Aspirin 324 mg 12/27/21 04:40 12/27/21 04:42 Aspirin 81mg Chewable Tablet PO 12/27/21 04:41 324 mg ONCE ONE Admi
[2021-12-27 06:04] LABS: Microscopic, Urine URINE MICROSCOPIC (MICROSCOPIC)
[2021-12-27 06:07] LABS: Appearance,Urine CLEAR (Clear); Bilirubin,Urine Negative (Negative); Blood, Urine Negative (Negative); Color,Urine YELLOW (Yellow); Glucose,Urine (UA) Negative (Negative); Ketones,Urine Negative (Negative); Leukocyte Esterase,Urine 2+ (Negative); Nitrate,Urine Negative (Negative); Protein,Urine Negative (Negative); Specific Gravity, Urine <= 1.005 (1.005-1.030); Urobilinogen,Urine 0.2 EU/dl (0.2)
[2021-12-27 06:20] LABS: Bacteria,Urine Trace /lpf
[2021-12-27 07:20] LABS: Coronavirus 19, PCR Not Detected (NotDetected); Influenza A, PCR Not Detected (NotDetected); Influenza B, PCR Not Detected (NotDetected)
--- NOTE | 2021-12-27 07:36 | PC.NURSE ---
Obtained 2nd Trop. Made sure pt was okay and didnt need anything.
[2021-12-27 08:13] LABS: Troponin I < 0.01 ng/ml (0.00-0.034)
== END 2021-12-27 08:30 | disposition home or self-care (01) ==
PROVIDERS: Emergency Provider Emergency Medicine; PCP Family Medicine
DX: R07.9 Chest pain, unspecified (principal); Z79.899 Other long term (current) drug therapy; Z88.0 Allergy status to penicillin; Z88.1 Allergy status to other antibiotic agents; Z88.6 Allergy status to analgesic agent; Z88.5 Allergy status to narcotic agent; E78.5 Hyperlipidemia, unspecified; I10 Essential (primary) hypertension; K21.9 Gastro-esophageal reflux disease without esophagitis; F41.9 Anxiety disorder, unspecified; E03.9 Hypothyroidism, unspecified; D64.9 Anemia, unspecified
CPT/HCPCS: 71045; 74176; 80053; 81001; 82150; 83690; 84145; 84484; 85025; 85651; 86140; 87086; 93005; 96365; 99284; C9803; U0003; U0005

== ENCOUNTER 2022-01-13 12:54 | Emergency (ER) | payer BC, SELFPAY ==
[2022-01-13 13:12] VITALS: BP 179/96; PULSE 110; RESP 16; TEMP 36.7; O2SAT 98; BMI 50.3
--- NOTE | 2022-01-13 13:17 | HMH.EDUTC ---
[facility] [place] Clinical Impression: Viral syndrome Sinusitis Qualifiers: Sinusitis location: unspecified location Chronicity: acute Recurrence: non-recurrent Qualified Code(s): J01.90 - Acute sinusitis, unspecified Disposition: Home, Self-Care Condition on Discharge: Good Instructions: DI for Sinusitis, DI for Viral Syndrome, Preventing the Spread of Coronavirus Discharge Instructions Additional Instructions: Drink plenty of fluids. Take tylenol or ibuprofen for pain or fever. Take the medications as directed. Follow up with your regular doctor. GO TO THE ER FOR ANY WORSENING SYMPTOMS Quarantine until you know the results of your covid-19 test. Notify your school or workplace of your results and follow their instructions regarding return to work/school. Prescriptions: Benzonatate [Benzonatate 100mg cap] 100 mg PO TIDP PRN #30 cap PRN Reason: Cough Transmission Status: Received by [facility] #[id number] methylPREDNISolone [Medrol] 4 mg PO DIRECTED 6 Days #21 packet Transmission Status: Received by [facility] # Azithromycin [Z-Jd 250mg Tab*] 250 mg PO UD DOSE PK #6 tab Transmission Status: Received by [facility] #[id number] Referrals: Moises Escobar MD [Primary Care Provider] - Time of Disposition: 13:43 Medical Decision Making - Medical Records Medical records reviewed: No: I reviewed the patient's medical records. - Kt Inquiry Pt receiving controlled substance: No Vital Signs: 01/13/22 13:12 01/13/22 13:56 Temperature 98.0 F 98.0 F Temperature Source Oral Pulse Rate 90 Pulse Rate [Left] 110 H Respiratory Rate 16 16 Blood Pressure 179/96 H Blood Pressure [Right Arm] 179/96 H Blood Pressure Mean [Right Arm] 123 02 Sat by Pulse Oximetry 98 Orders (Tests/Meds): ORDERS Category Date Time Status Covid-19 Nasal PCR ([facility]) Routine Lab 01/13/22 13:07 Received [facility] [place] HPI - General Stated complaint: ear pain Time Seen by Provider: 01/13/22 13:18 Mode of Arrival: Ambulatory Source of Information: Patient Limitations: No Limitations Description of Symptoms (Recalled from Triage Doc. by RN): patient comes in with complaints of nausea, bilateral ear pain, and sinus pressure. patient states symptoms began a few days ago HEENT Symptoms (Recalled from RN notes): Yes Resp Symptoms (Recalled from RN notes): No Skin Symptoms (Recalled from RN notes): No MS Symptoms (Recalled from RN notes): No Functional Status (Recalled from RN notes): n/a - History of Present Illness Provider Complaint: She states that she has had sinus congestion, sore throat, chills, and bilateral ear pain for the past 2 days. - Related Data Home Medications Medication Instructions Recorded Confirmed diazepam 2 mg tablet 2 mg PO DAILYP PRN tab 11/21/17 12/27/21 Lovastatin 10 mg PO DAILY 03/15/18 12/27/21 diltiazem HCl 120 mg tablet 120 mg PO QHS tab 03/05/19 12/27/21 Promethazine/Dextromethorphan 5 ml PO Q6H PRN 02/13/21 12/27/21 [Promethazine-Dm Syrup] Previous Rx's Medication Instructions Recorded Azithromycin [Z-Jd 250mg Tab*] 250 mg PO UD DOSE PK #6 tab 01/13/22 Benzonatate [Benzonatate 100mg 100 mg PO TIDP PRN #30 cap 01/13/22 cap] methylPREDNISolone [Medrol] 4 mg PO DIRECTED 6 Days #21 01/13/22 packet Allergies Allergy/AdvReac Type Severity Reaction Status Date / Time amoxicillin Allergy Intermediate Verified 01/13/22 13:15 fluticasone [From Flonase] Allergy Intermediate swelling Verified 01/13/22 13:15 of lips meperidine [From DEMEROL] Allergy Mild Verified 01/13/22 13:15 morphine [MORPHINE] Allergy Mild Verified 01/13/22 13:15 Penicillins Allergy Verified 01/13/22 13:15 - Worker's Comp Is this a Worker's Comp case?: No [facility] History - Hepatitis A Screen Attestation statement:: This patient has been screened for Hepatitis A risk factors. I have reviewed the patient's past medical
[2022-01-13 13:56] VITALS: BP 179/96; PULSE 90; RESP 16; TEMP 36.7
== END 2022-01-13 13:57 | disposition home or self-care (01) ==
PROVIDERS: Emergency Provider Nurse Practitioner Family; PCP Family Medicine
DX: J01.90 Acute sinusitis, unspecified (principal); J02.9 Acute pharyngitis, unspecified; H92.03 Otalgia, bilateral; R11.0 Nausea; Z20.822 Contact with and (suspected) exposure to COVID-19; I10 Essential (primary) hypertension; K21.9 Gastro-esophageal reflux disease without esophagitis; E78.5 Hyperlipidemia, unspecified; L57.0 Actinic keratosis; E55.9 Vitamin D deficiency, unspecified; L30.9 Dermatitis, unspecified; L98.499 Non-pressure chronic ulcer of skin of other sites with unspecified severity; F41.9 Anxiety disorder, unspecified; Z79.52 Long term (current) use of systemic steroids; Z79.899 Other long term (current) drug therapy; Z88.0 Allergy status to penicillin; Z88.1 Allergy status to other antibiotic agents; Z88.3 Allergy status to other anti-infective agents; Z88.5 Allergy status to narcotic agent; Z88.8 Allergy status to other drugs, medicaments and biological substances; Z87.19 Personal history of other diseases of the digestive system; Z82.49 Family history of ischemic heart disease and other diseases of the circulatory system
CPT/HCPCS: 99213; C9803; G0463; U0003; U0005

== ENCOUNTER 2022-03-20 14:49 | Emergency (ER) | payer BC, SELFPAY ==
--- NOTE | 2022-03-20 15:00 | XR_ITS ---
PROCEDURE INFORMATION: Exam: XR Right Hand Exam date and time: 03/20/2022 2:59 PM Age: 61 years old Clinical indication: Pain and injury or trauma; Fall; Other: Fell; Finger(s) and hand; Right TECHNIQUE: Imaging protocol: Radiologic exam of the Right hand. Views: 3 or more views. COMPARISON: No relevant prior studies available. FINDINGS: Bones/joints: Normal. Soft tissues: Normal. IMPRESSION: No acute findings. If there are snuffbox symptoms which persist, recommend follow up films in 7-10 days time following appropriate clinical management to assess for a healing response.
[2022-03-20 15:01] VITALS: PULSE 104; RESP 18; TEMP 36.7; O2SAT 96; BMI 50.3
--- NOTE | 2022-03-20 15:19 | EXP.UTC ---
Discharge Plan Disposition Patient Disposition: Home, Self-Care Condition: Good Prescriptions Prescriptions: New cefdinir 300 mg capsule 300 mg PO BID Qty: 20 0RF No Action diazepam [Valium] 2 mg tablet 2 mg PO DAILYP PRN (Reason: Anxiety) diltiazem HCl 120 mg tablet 120 mg PO QHS lovastatin 10 MG tablet 10 mg PO DAILY promethazine-DM 120 ML syrup 5 ml PO Q6H PRN (Reason: Cough) azithromycin 250 MG tablet 250 mg PO UD DOSE PK Qty: 6 0RF Rx Instructions: Take two (2) tablets today, then one (1) tablet days #2 thru #5 benzonatate 100 MG capsule 100 mg PO TIDP PRN (Reason: Cough) Qty: 30 0RF methylprednisolone 4 MG tablets,dose pack 4 mg PO DIRECTED 6 Days Qty: 21 0RF Referrals Follow up/Referrals: Moises Escobar MD [Primary Care Provider] - See instructions Luke Davila MD [Staff Physician] - See instructions Activity Restrictions/Add. Instructions Additional Instructions/Restrictions: Rest the extremity, apply ice for 15 minutes as tolerated three or four times per day, Elevate the extremity as tolerated while you are resting. Take ibuprofen for pain if you can take it. Follow up with Dr. Davila (orthopedics) regarding your hand/wrist injury. I put in a referral but you need to call his office and schedule an appointment. Call his office in the morning. The office number will be on this paperwork. Follow up with your regular doctor. GO TO THE ER FOR ANY WORSENING SYMPTOMS Clinical Impressions Clinical Impression: Otitis media, Sprain of hand, left Instructions Patient Instructions: Wrist Fracture, Middle Ear Infection Discharge ED Provider: Michael Recinos [facility] [place] General Stated complaint: AO fall 03/20, right thumb pain Mode of Arrival: Ambulatory Source of Information: Patient Limitations: No Limitations Time Seen by Provider: 03/20/22 15:19 Description of Symptoms (Recalled from Triage Doc. by RN): pt comes in [facility] c/o hurt right thumb. pt was sitting on the ground and went to get up and slipped, thumb went the wrong way. 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 When she did this she slipped and it caused her to bend her right thumb backwards. She is having pain and stiffness at the base of her thumb. She denies any other injury Related Data Home Medications Medication Instructions Recorded Confirmed diazepam 2 mg tablet (Valium) 2 mg PO DAILYP PRN Anxiety 11/21/17 12/27/21 lovastatin 10 mg tablet 10 mg PO DAILY Cholesterol 03/15/18 12/27/21 diltiazem HCl 120 mg tablet 120 mg PO QHS Hypertension 03/05/19 12/27/21 promethazine-DM 6.25 mg-15 mg/5 mL 5 ml PO Q6H PRN Cough 02/13/21 12/27/21 oral syrup Previous Rx's Medication Instructions Recorded azithromycin 250 mg tablet 250 mg PO UD DOSE PK #6 tabs 01/13/22 benzonatate 100 mg capsule 100 mg PO TIDP PRN Cough #30 caps 01/13/22 methylprednisolone 4 mg tablets in 4 mg PO DIRECTED 6 days #21 01/13/22 a dose pack packets cefdinir 300 mg capsule 300 mg PO BID #20 caps 03/20/22 Allergies Allergy/AdvReac Type Severity Reaction Status Date / Time amoxicillin Allergy Intermediate Verified 03/20/22 15:05 fluticasone [From Flonase] Allergy Intermediate swelling Verified 03/20/22 15:05 of lips meperidine [From DEMEROL] Allergy Mild Verified 03/20/22 15:05 morphine [MORPHINE] Allergy Mild Verified 03/20/22 15:05 Penicillins Allergy Verified 03/20/22 15:05 Worker's Comp Is this a Worker's Comp case?: No PFSH PFS Medical History Actinic keratoses Anxiety Hypoglycemia Labyrinthi
[2022-03-20 17:02] VITALS: BP 0/0; PULSE 104; RESP 18; TEMP 36.7
== END 2022-03-20 17:03 | disposition home or self-care (01) ==
PROVIDERS: Emergency Provider Nurse Practitioner Family; PCP Family Medicine
DX: H66.90 Otitis media, unspecified, unspecified ear; S63.92XA Sprain of unspecified part of left wrist and hand, initial encounter
CPT/HCPCS: 29131; 73130; 99213; G0463

== ENCOUNTER 2022-03-29 12:03 | Outpatient (RCR) | payer BC, SELFPAY | END 2022-03-29 13:00 | disposition home or self-care (01) | LOC: OT 12:03 | PROVIDERS: Visit Provider Orthopaedic Surgery | DX: S63.641A Sprain of metacarpophalangeal joint of right thumb, initial encounter (principal) | CPT/HCPCS: 97763 ==

== ENCOUNTER 2022-04-21 17:37 | Emergency (ER) | payer BC, SELFPAY ==
[2022-04-21] VITALS (8 sets, daily range): BP systolic 152–196; BP diastolic 84–109; PULSE 87–121; RESP 12–22; TEMP 36.7–36.9; O2SAT 93–96; BMI 50.4
--- NOTE | 2022-04-21 17:35 | ECG_ITS ---
APPROVED REPORT Exam: Resting ECG HR:121 bpm ECG Measurements Heart Rate 121 AXES MD 148 P 63 QRSd 90 QRS 76 QT 345 T 74 QTc 417 Conclusion SINUS TACHYCARDIA WITH FREQUENT SUPRAVENTRICULAR PREMATURE COMPLEXES POSSIBLE RIGHT VENTRICULAR CONDUCTION DELAY [RSR (QR) IN V1/V2] MODERATE ST DEPRESSION [0.05+ mV ST DEPRESSION] ABNORMAL ECG UNCONFIRMED REPORT Electronically signed by : Michael Flores MD 04/22/2022 20:01:50
--- NOTE | 2022-04-21 17:52 | XR_ITS ---
PROCEDURE INFORMATION: Exam: XR Chest Exam date and time: 04/21/2022 6:09 PM Age: 61 years old Clinical indication: Chest wall pain; Additional info: Chest pain TECHNIQUE: Imaging protocol: Radiologic exam of the chest. Views: 1 view. COMPARISON: CR XR CHEST PORTABLE 12/27/2021 5:00 AM FINDINGS: Lungs: No evidence of pneumonia or interstitial edema. Pleural spaces: Unremarkable. No pleural effusion. No pneumothorax. Heart/Mediastinum: Unremarkable. No cardiomegaly. Bones/joints: Unremarkable. IMPRESSION: No evidence of pneumonia or interstitial edema.
[2022-04-21 17:58] LABS: Basophils # 0.1 K/mm3 (0-0.2); Basophils % 1.5 % (0.1-2.0); Eosinophils # 0.2 K/mm3 (0.0-0.4); Eosinophils % 1.8 % (0.1-12.0); Hematocrit 46.9 % (37.0-47.0); Lymphocytes # 3.9 K/mm3 (0.7-4.5); Mean Corpuscular HGB Conc 32.1 g/dL (31.8-35.4); Mean Corpuscular Hemoglobin 28.5 pg (27.0-31.2); Mean Platelet Volume 8.9 fl (7.4-10.4); Monocytes # 0.5 K/mm3 (0.1-1.0); Monocytes % 5.4 % (1.7-9.3); Neutrophils # 4.8 K/mm3 (1.8-7.8); Neutrophils % 50.3 % (37.0-80.0); Platelet Count 257 K/mm3 (142-424); Red Blood Count 5.27 M/mm3 (4.20-5.40); Red Cell Distribution Width 14.6 % (11.5-17.5); White Blood Count 9.5 K/mm3 (4.8-10.8)
[2022-04-21 18:03] LABS: Chloride 102 mmol/L (98-107); Potassium 3.4 mmoL/L (3.5-5.1); Sodium 145 mmol/L (136-145)
--- NOTE | 2022-04-21 18:03 | PC.NURSE ---
COVID SWAB SENT TO LAB
[2022-04-21 18:04] LABS: Blood Urea Nitrogen 14 mg/dl (7-17); Creatinine Clearance Estimated 65 mL/min (50-200); Estimated Glomerular Filt Rate 73 ml/min (>60); GFR (African American) 89 ML/MIN (>60)
[2022-04-21 18:05] LABS: Anion Gap 18.4 mEq/L (5-15); Carbon Dioxide 28 mmol/L (22.0-30.0); Glucose 120 mg/dl (74-100)
[2022-04-21 18:12] LABS: Coronavirus 19, PCR Not Detected (NotDetected); Influenza A, PCR Not Detected (NotDetected); Influenza B, PCR Not Detected (NotDetected)
--- NOTE | 2022-04-21 18:12 | ECG_ITS ---
APPROVED REPORT Exam: Resting ECG HR:112 bpm ECG Measurements Heart Rate 112 AXES QRSd 89 QRS 65 QT 313 T 69 QTc 380 Conclusion Sinus rhythm with frequent pacs in a [facility] MODERATE ST DEPRESSION [0.05+ mV ST DEPRESSION] ABNORMAL ECG UNCONFIRMED REPORT Electronically signed by : Michael Flores MD 04/22/2022 20:01:44
--- NOTE | 2022-04-21 18:15 | PC.NURSE ---
HOUSE NOTIFIED OF ADMISSION
[2022-04-21 18:18] LABS: Troponin I < 0.01 ng/ml (0.00-0.034)
[2022-04-21 18:33] LABS: Magnesium 1.9 mg/dl (1.6-2.3)
--- NOTE | 2022-04-21 18:33 | PC.NURSE ---
pt ambulated to the restroom
--- NOTE | 2022-04-21 20:30 | HMH.EDCP ---
Discharge Plan Disposition Patient Disposition: Home, Self-Care Condition: Good Prescriptions Prescriptions: No Action diazepam [Valium] 2 mg tablet 2 mg PO DAILYP PRN (Reason: Anxiety) diltiazem HCl 120 mg tablet 120 mg PO QHS lovastatin 10 MG tablet 10 mg PO DAILY promethazine-DM 120 ML syrup 5 ml PO Q6H PRN (Reason: Cough) cefdinir 300 mg capsule 300 mg PO BID Qty: 20 0RF azithromycin 250 MG tablet 250 mg PO UD DOSE PK Qty: 6 0RF Rx Instructions: Take two (2) tablets today, then one (1) tablet days #2 thru #5 benzonatate 100 MG capsule 100 mg PO TIDP PRN (Reason: Cough) Qty: 30 0RF methylprednisolone 4 MG tablets,dose pack 4 mg PO DIRECTED 6 Days Qty: 21 0RF Referrals Follow up/Referrals: Moises Escobar MD [Primary Care Provider] - See instructions Justina Naqvi APRN [Nurse Practitioner] - See instructions Activity Restrictions/Add. Instructions Additional Instructions/Restrictions: Recommend following up with Dr. Escobar to talk about titration of your diltiazem or possibly switching over to a beta-karen Clinical Impressions Clinical Impression: Heart palpitations Instructions Patient Instructions: DI for Palpitations Discharge ED Provider: Theo Nicolas Chest Pain HPI General Chief Complaint: Chest Pain Stated Complaint: chest pain Time Seen by Provider: 04/21/22 18:00 Mode of Arrival: Ambulatory Source of Information: Patient Limitations: No Limitations Description of Symptoms (Recalled from ER Triage Doc. by RN): c/o chest pain that started this morning with some dizziness, the chest pain went away this afternoon she laid down for a nap and when she woke the chest pain was back. Denies any radiation or other symptoms at this tme. History of Present Illness HPI narrative: Patient is a 61-year-old female who presents with concern for palpitations. She says that she is unsure if it is the chest pain or if it really just feels like palpitations intermittently in her chest. She says that this started this morning. She says that it went away after a while but then ultimately came back another time so she went to come in for evaluation. She locates it substernally when it happens. She denies any nausea or diaphoresis. It does not radiate to her arms or neck. She says that this has happened 1 time in the past but cannot remember what ultimately happened. She denies any shortness of breath or recent illnesses. Denies any fever or chills. She does take verapamil for tachycardia. CECILIA Score for Non-Stemi Age of Patient: 60-69 years old Heart Rate: 90-109 bpm Systolic Blood Pressure: 140-159 mmHg Serum Creatinine: 0.80-1.19 mg/dl CHF [place] Class: I-No CHF Other Risk Factors: None Non-Stemi Risk Score: 104 Risk Stratification: 1-108 = Low Risk Related Data Home Medications Medication Instructions Recorded Confirmed diazepam 2 mg tablet (Valium) 2 mg PO DAILYP PRN Anxiety 11/21/17 03/29/22 lovastatin 10 mg tablet 10 mg PO DAILY Cholesterol 03/15/18 03/29/22 diltiazem HCl 120 mg tablet 120 mg PO QHS Hypertension 03/05/19 03/29/22 promethazine-DM 6.25 mg-15 mg/5 mL 5 ml PO Q6H PRN Cough 02/13/21 03/29/22 oral syrup Previous Rx's Medication Instructions Recorded azithromycin 250 mg tablet 250 mg PO UD DOSE PK #6 tabs 01/13/22 benzonatate 100 mg capsule 100 mg PO TIDP PRN Cough #30 caps 01/13/22 methylprednisolone 4 mg tablets in 4 mg PO DIRECTED 6 days #21 01/13/22 a dose pack packets cefdinir 300 mg capsule 300 mg PO BID #20 caps 03/20/22 Allergies Allergy/AdvReac Type Severity Reaction Status Date / Time amoxicillin Allergy Intermediate Verified 03/29/22 11:43 fluticasone [From Flonase] Allergy Intermediate swelling Verified 03/29/22 11:43 of lips meperidine [From DEMEROL] Allergy Mild Verified 03/29/22 11:43 morphine [MORPHINE] Allergy Mild Verified 03/29/22 11:43 Penicillins Allergy Verified
[2022-04-21 21:22] LABS: Troponin I < 0.01 ng/ml (0.00-0.034)
== END 2022-04-21 21:39 | disposition home or self-care (01) ==
PROVIDERS: Emergency Provider Student in an Organized Health Care Education/Training Program; PCP Family Medicine
DX: R07.2 Precordial pain (principal); R00.2 Palpitations; R42 Dizziness and giddiness; R05.9 Cough, unspecified; E16.2 Hypoglycemia, unspecified; Z20.822 Contact with and (suspected) exposure to COVID-19; L57.0 Actinic keratosis; L40.0 Psoriasis vulgaris; H83.09 Labyrinthitis, unspecified ear; E55.9 Vitamin D deficiency, unspecified; Z88.0 Allergy status to penicillin; Z88.1 Allergy status to other antibiotic agents; Z88.3 Allergy status to other anti-infective agents; Z88.5 Allergy status to narcotic agent; Z88.8 Allergy status to other drugs, medicaments and biological substances; Z79.52 Long term (current) use of systemic steroids; Z79.899 Other long term (current) drug therapy
CPT/HCPCS: 71045; 80048; 83735; 84484; 85025; 93005; 99285; C9803; U0003; U0005

== ENCOUNTER 2022-04-25 15:23 | Emergency (ER) | payer BC, SELFPAY ==
--- NOTE | 2022-04-25 15:13 | ECG_ITS ---
APPROVED REPORT Exam: Resting ECG HR:103 bpm ECG Measurements Heart Rate 103 AXES [place] 151 P 15 QRSd 90 QRS 35 QT 344 T 54 QTc 404 Conclusion SINUS TACHYCARDIA WITH FREQUENT SUPRAVENTRICULAR PREMATURE COMPLEXES MODERATE ST DEPRESSION [0.05+ mV ST DEPRESSION] ABNORMAL ECG UNCONFIRMED REPORT Electronically signed by : Michael Flores MD 04/25/2022 21:09:23
[2022-04-25 15:38] VITALS: BMI 53.2
--- NOTE | 2022-04-25 15:38 | XR_ITS ---
FINAL REPORT CLINICAL HISTORY: SOA FINDINGS: The heart size is normal. The mediastinum is within normal limits. There is no acute cardiopulmonary process. There is no pleural effusion. There is no pneumothorax. The bony thorax is intact. IMPRESSION: No acute cardiopulmonary process. Reviewed, Interpreted and Dictated by Drew Pereira MD Transcribed by Guido Ambriz Authenticated and [facility]
[2022-04-25 15:39] VITALS: BP 174/95; PULSE 87; RESP 20; TEMP 36.8; O2SAT 95; BMI 53.2
--- NOTE | 2022-04-25 15:49 | HMH.EDGENADL ---
Discharge Plan Disposition Patient Disposition: Home, Self-Care Condition: Good Prescriptions Prescriptions: No Action diazepam [Valium] 2 mg tablet 2 mg PO DAILYP PRN (Reason: Anxiety) diltiazem HCl 120 mg tablet 120 mg PO QHS lovastatin 10 MG tablet 10 mg PO DAILY promethazine-DM 120 ML syrup 5 ml PO Q6H PRN (Reason: Cough) cefdinir 300 mg capsule 300 mg PO BID Qty: 20 0RF azithromycin 250 MG tablet 250 mg PO UD DOSE PK Qty: 6 0RF Rx Instructions: Take two (2) tablets today, then one (1) tablet days #2 thru #5 benzonatate 100 MG capsule 100 mg PO TIDP PRN (Reason: Cough) Qty: 30 0RF methylprednisolone 4 MG tablets,dose pack 4 mg PO DIRECTED 6 Days Qty: 21 0RF Referrals Follow up/Referrals: Moises Escobar MD [Primary Care Provider] - See instructions Activity Restrictions/Add. Instructions Additional Instructions/Restrictions: Increase diltiazem to 180 mg daily beginning this evening. Have your blood pressure rechecked later this week by primary care provider. Return for worsening palpitations, chest pain or other concerns. Avoid caffeine. Avoid exertion in the meantime. Clinical Impressions Clinical Impression: Palpitations Discharge ED Provider: Elian Obrien General Adult HPI General Chief complaint: Shortness of Breath/Dyspnea Stated complaint: SOA Time Seen by Provider: 04/25/22 15:40 Mode of Arrival: Ambulatory Source of Information: Patient Limitations: No Limitations Description of Symptoms (Recalled from ER Triage Doc. by RN): pt to ed c/o SOA. pt states she started feeling short of air this morning. pt reports chest heaviness. pt states she has a hx of similar events. History of Present Illness HPI narrative: Patient presents with palpitations that began approximate 1 hour prior to ED presentation. She denies associated chest pain. She had shortly prior to symptom onset awoken from a nap. She describes symptoms as mild to moderate and without exacerbating or alleviating factors. Is been no recent fever or productive cough. Related Data Home Medications Medication Instructions Recorded Confirmed diazepam 2 mg tablet (Valium) 2 mg PO DAILYP PRN Anxiety 11/21/17 03/29/22 lovastatin 10 mg tablet 10 mg PO DAILY Cholesterol 03/15/18 03/29/22 diltiazem HCl 120 mg tablet 120 mg PO QHS Hypertension 03/05/19 03/29/22 promethazine-DM 6.25 mg-15 mg/5 mL 5 ml PO Q6H PRN Cough 02/13/21 03/29/22 oral syrup Previous Rx's Medication Instructions Recorded azithromycin 250 mg tablet 250 mg PO UD DOSE PK #6 tabs 01/13/22 benzonatate 100 mg capsule 100 mg PO TIDP PRN Cough #30 caps 01/13/22 methylprednisolone 4 mg tablets in 4 mg PO DIRECTED 6 days #21 01/13/22 a dose pack packets cefdinir 300 mg capsule 300 mg PO BID #20 caps 03/20/22 Allergies Allergy/AdvReac Type Severity Reaction Status Date / Time amoxicillin Allergy Intermediate Verified 03/29/22 11:43 fluticasone [From Flonase] Allergy Intermediate swelling Verified 03/29/22 11:43 of lips meperidine [From DEMEROL] Allergy Mild Verified 03/29/22 11:43 morphine [MORPHINE] Allergy Mild Verified 03/29/22 11:43 Penicillins Allergy Verified 03/29/22 11:43 PFSH PFSH Medical History Actinic keratoses Anxiety Hypoglycemia Labyrinthitis Psoriasiform eczema Vitamin D deficiency (~11/27/17) Social History Smoking Status: Never smoker alcohol intake: never substance use type: denies use current occupational status: other Travel in the last 8 weeks: None household members: spouse housing: house caffeine: No ROS Obtained: Yes All systems reviewed & no additional complaints except as documented Constitutional Constitutional: Reports system reviewed and no additional complaints, except as documented Eyes Eyes: Reports other (Patient liu
[2022-04-25 15:57] LABS: Chloride 105 mmol/L (98-107)
[2022-04-25 15:58] LABS: Potassium 3.9 mmoL/L (3.5-5.1); Sodium 146 mmol/L (136-145)
[2022-04-25 15:59] LABS: Basophils # 0.2 K/mm3 (0-0.2); Eosinophils # 0.2 K/mm3 (0.0-0.4); Eosinophils % 2.3 % (0.1-12.0); Hematocrit 47.3 % (37.0-47.0); Hemoglobin 15.3 g/dL (12.2-16.2); Lymphocytes # 3.5 K/mm3 (0.7-4.5); Lymphocytes % 39.7 % (10-50); Mean Corpuscular HGB Conc 32.3 g/dL (31.8-35.4); Mean Corpuscular Hemoglobin 28.8 pg (27.0-31.2); Mean Platelet Volume 9.8 fl (7.4-10.4); Monocytes # 0.6 K/mm3 (0.1-1.0); Monocytes % 6.2 % (1.7-9.3); Neutrophils # 4.4 K/mm3 (1.8-7.8); Neutrophils % 49.8 % (37.0-80.0); Platelet Count 220 K/mm3 (142-424); Red Blood Count 5.32 M/mm3 (4.20-5.40); Red Cell Distribution Width 14.5 % (11.5-17.5); White Blood Count 8.9 K/mm3 (4.8-10.8)
[2022-04-25 16:00] VITALS: BP 159/89; PULSE 96; RESP 20; O2SAT 98
[2022-04-25 16:01] LABS: Anion Gap 17.9 mEq/L (5-15); Blood Urea Nitrogen 13 mg/dl (7-17); Calcium 9.7 mg/dl (8.4-10.2); Carbon Dioxide 27 mmol/L (22.0-30.0); Creatinine Clearance Estimated 97 mL/min (50-200); Estimated Glomerular Filt Rate 102 ml/min (>60); GFR (African American) 123 ML/MIN (>60); Glucose 90 mg/dl (74-100)
[2022-04-25 16:15] LABS: Troponin I < 0.01 ng/ml (0.00-0.034)
[2022-04-25 16:30] VITALS: BP 146/101; PULSE 88; RESP 20; O2SAT 96
[2022-04-25 17:01] VITALS: BP 172/92; PULSE 111; RESP 20; O2SAT 97
--- NOTE | 2022-04-25 17:07 | PC.NURSE ---
Rounded on pt at this time. Updated on POC. No new needs at this time
[2022-04-25 18:04] VITALS: BP 158/88; PULSE 86; RESP 14; TEMP 36.8; O2SAT 98
== END 2022-04-25 18:06 | disposition home or self-care (01) ==
PROVIDERS: Emergency Provider Emergency Medicine; PCP Family Medicine
DX: H92.02 Otalgia, left ear (principal); H83.02 Labyrinthitis, left ear; R07.89 Other chest pain; R00.2 Palpitations; R94.31 Abnormal electrocardiogram [ECG] [EKG]; R06.02 Shortness of breath; E16.2 Hypoglycemia, unspecified; R05.9 Cough, unspecified; I10 Essential (primary) hypertension; E78.00 Pure hypercholesterolemia, unspecified; E55.9 Vitamin D deficiency, unspecified; L57.0 Actinic keratosis; L40.0 Psoriasis vulgaris; F41.9 Anxiety disorder, unspecified; Z88.0 Allergy status to penicillin; Z88.1 Allergy status to other antibiotic agents; Z88.3 Allergy status to other anti-infective agents; Z88.5 Allergy status to narcotic agent; Z88.8 Allergy status to other drugs, medicaments and biological substances; Z79.899 Other long term (current) drug therapy
CPT/HCPCS: 71045; 80048; 84484; 85025; 93005; 99284

== ENCOUNTER 2022-04-27 19:36 | Emergency (ER) | payer BC, SELFPAY ==
--- NOTE | 2022-04-27 19:34 | ECG_ITS ---
APPROVED REPORT Exam: Resting ECG HR:114 bpm ECG Measurements Heart Rate 114 AXES MO 166 P 45 QRSd 90 QRS 79 QT 313 T 71 QTc 380 Conclusion SINUS TACHYCARDIA WITH OCCASIONAL ECTOPIC PREMATURE COMPLEXES MODERATE ST DEPRESSION [0.05+ mV ST DEPRESSION] ABNORMAL ECG UNCONFIRMED REPORT Electronically signed by : Michael Flores MD 04/28/2022 21:16:51
[2022-04-27 19:36] VITALS: BP 197/87; PULSE 111; RESP 18; TEMP 37.1; O2SAT 96; BMI 50.4
--- NOTE | 2022-04-27 19:45 | XR_ITS ---
PROCEDURE INFORMATION: Exam: XR Chest Exam date and time: 04/27/2022 7:53 PM Age: 61 years old Clinical indication: Other: Heart racing TECHNIQUE: Imaging protocol: Radiologic exam of the chest. Views: 2 views. COMPARISON: CR XR CHEST PORTABLE 04/25/2022 3:56 PM FINDINGS: Tubes, catheters and devices: Overlying knife setter electrodes. Lungs: Minimal subsegmental atelectasis in the lower right lung. No focal consolidation. Pulmonary vessels do not appear congested. Pleural spaces: Unremarkable. No significant pleural effusion. No pneumothorax. Heart/Mediastinum: Cardiac silhouette appears within the upper limits normal, with prominent pericardial fat pad suggested. Bones/joints: There are spinal degenerative changes, with multilevel disc narrrowing and spondylosis. Other findings: Overlying clothing artifacts. IMPRESSION: No acute findings.
--- NOTE | 2022-04-27 20:58 | HMH.EDARPALP ---
Discharge Plan Disposition Patient Disposition: Home, Self-Care Chief Complaint: Arrhythmia/Palpitations Prescriptions Prescriptions: No Action diazepam [Valium] 2 mg tablet 2 mg PO DAILYP PRN (Reason: Anxiety) diltiazem HCl 120 mg tablet 120 mg PO QHS lovastatin 10 MG tablet 10 mg PO DAILY promethazine-DM 120 ML syrup 5 ml PO Q6H PRN (Reason: Cough) cefdinir 300 mg capsule 300 mg PO BID Qty: 20 0RF azithromycin 250 MG tablet 250 mg PO UD DOSE PK Qty: 6 0RF Rx Instructions: Take two (2) tablets today, then one (1) tablet days #2 thru #5 benzonatate 100 MG capsule 100 mg PO TIDP PRN (Reason: Cough) Qty: 30 0RF methylprednisolone 4 MG tablets,dose pack 4 mg PO DIRECTED 6 Days Qty: 21 0RF Referrals Follow up/Referrals: Provider,Referral, MD [Primary Care Provider] - See instructions Clinical Impressions Clinical Impression: Intermittent palpitations Instructions Patient Instructions: DI for Arrhythmias Discharge ED Provider: Dario Cook Arrhythmia/Palpitations HPI General Chief Complaint: Arrhythmia/Palpitations Stated Complaint: chest pain Time Seen by Provider: 04/27/22 20:10 Mode of Arrival: Ambulatory Source of Information: Patient, Spouse and Medical Record Limitations: No Limitations History of Present Illness HPI narrative: pt with episodes of chest pain and palpitations over the last 2 week s- has talked with pcp and seen in the ed x 2 - no recent echo or gxt - MD complaint: heart racing Onset (ago): day(s) Severity: moderate Associated symptoms: chest pain and shortness of breath Treatments prior to arrival: calcium channel karen Related Data Home Medications Medication Instructions Recorded Confirmed diazepam 2 mg tablet (Valium) 2 mg PO DAILYP PRN Anxiety 11/21/17 03/29/22 lovastatin 10 mg tablet 10 mg PO DAILY Cholesterol 03/15/18 03/29/22 diltiazem HCl 120 mg tablet 120 mg PO QHS Hypertension 03/05/19 03/29/22 promethazine-DM 6.25 mg-15 mg/5 mL 5 ml PO Q6H PRN Cough 02/13/21 03/29/22 oral syrup Previous Rx's Medication Instructions Recorded azithromycin 250 mg tablet 250 mg PO UD DOSE PK #6 tabs 08/04/22 benzonatate 100 mg capsule 100 mg PO TIDP PRN Cough #30 caps 01/13/22 methylprednisolone 4 mg tablets in 4 mg PO DIRECTED 6 days #21 01/13/22 a dose pack packets cefdinir 300 mg capsule 300 mg PO BID #20 caps 03/20/22 Allergies Allergy/AdvReac Type Severity Reaction Status Date / Time amoxicillin Allergy Intermediate Verified 03/29/22 11:43 fluticasone [From Flonase] Allergy Intermediate swelling Verified 03/29/22 11:43 of lips meperidine [From DEMEROL] Allergy Mild Verified 03/29/22 11:43 morphine [MORPHINE] Allergy Mild Verified 03/29/22 11:43 Penicillins Allergy Verified 03/29/22 11:43 PFSH PFS Medical History Actinic keratoses Anxiety Hypoglycemia Labyrinthitis Psoriasiform eczema Vitamin D deficiency (~11/27/17) Social History Smoking Status: Never smoker alcohol intake: never substance use type: denies use current occupational status: other Travel in the last 8 weeks: None household members: spouse housing: house caffeine: No ROS Obtained: Yes All systems reviewed & no additional complaints except as documented Physical Exam General General appearance: alert and obese Head Head exam: normocephalic Eye Eye exam: Present PERRL and EOMI ENT ENT exam: Present mucous membranes moist Neck Neck exam: Present trachea midline Respiratory Respiratory exam: Present normal lung sounds bilaterally; Absent respiratory distress Cardiovascular Cardiovascular exam: Present tachycardia, systolic murmur and +S4 Abdominal Exam Abdominal exam: Present soft Extremities Exam Extremities exam: Present full ROM Neurological Exam Neurological exam: Present aler
[2022-04-27 21:09] LABS: Chloride 103 mmol/L (98-107); Potassium 3.9 mmoL/L (3.5-5.1); Sodium 143 mmol/L (136-145)
[2022-04-27 21:11] LABS: Blood Urea Nitrogen 13 mg/dl (7-17); Creatinine Clearance Estimated 74 mL/min (50-200); Estimated Glomerular Filt Rate 85 ml/min (>60); GFR (African American) 103 ML/MIN (>60)
[2022-04-27 21:12] LABS: Alanine Aminotransferase 61 U/L (12-78); Albumin Level 4.6 g/dl (3.5-5.0); Albumin/Globulin Ratio 1.4 (1.1-1.8); Alkaline Phosphatase 126 U/L (38-126); Anion Gap 17.9 mEq/L (5-15); Aspartate Amino Transferase 66 U/L (14-36); Bilirubin,Total 0.5 mg/dl (0.2-1.3); Calcium 9.9 mg/dl (8.4-10.2); Carbon Dioxide 26 mmol/L (22.0-30.0); Globulin 3.4 g/dL (1.3-3.2); Glucose 126 mg/dl (74-100)
[2022-04-27 21:14] LABS: Basophils # 0.1 K/mm3 (0-0.2); Basophils % 1.1 % (0.1-2.0); Eosinophils # 0.2 K/mm3 (0.0-0.4); Eosinophils % 3.2 % (0.1-12.0); Hematocrit 46.4 % (37.0-47.0); Lymphocytes # 2.9 K/mm3 (0.7-4.5); Lymphocytes % 41.7 % (10-50); Mean Corpuscular HGB Conc 32.3 g/dL (31.8-35.4); Mean Corpuscular Hemoglobin 28.9 pg (27.0-31.2); Mean Corpuscular Volume 89.5 fl (81-99); Mean Platelet Volume 9.7 fl (7.4-10.4); Monocytes # 0.4 K/mm3 (0.1-1.0); Monocytes % 5.2 % (1.7-9.3); Neutrophils # 3.4 K/mm3 (1.8-7.8); Neutrophils % 48.9 % (37.0-80.0); Platelet Count 231 K/mm3 (142-424); Red Blood Count 5.18 M/mm3 (4.20-5.40); Red Cell Distribution Width 15.1 % (11.5-17.5)
--- NOTE | 2022-04-27 21:32 | PC.NURSE ---
called lab to check on troponin, 16 min remaining.
[2022-04-27 21:50] LABS: Troponin I < 0.01 ng/ml (0.00-0.034)
[2022-04-27 22:11] LABS: NT Pro Brain Natriuretic Pep. 27.7 pg/mL (0-125)
[2022-04-27 22:21] LABS: T4 (Thyroxine) 9.3 ug/dl (5.53-11.0)
[2022-04-27 22:27] VITALS: BP 167/78; PULSE 100; RESP 18; TEMP 37.1; O2SAT 96
[2022-04-27 22:35] LABS: Thyroid Stimulating Hormone 3.48 uIU/mL (0.465-4.68)
== END 2022-04-27 22:27 | disposition home or self-care (01) ==
PROVIDERS: Emergency Provider Emergency Medicine
DX: R00.2 Palpitations (principal); R00.0 Tachycardia, unspecified; E16.2 Hypoglycemia, unspecified; R94.31 Abnormal electrocardiogram [ECG] [EKG]; I10 Essential (primary) hypertension; I49.9 Cardiac arrhythmia, unspecified; R01.1 Cardiac murmur, unspecified; E78.00 Pure hypercholesterolemia, unspecified; L57.0 Actinic keratosis; L40.0 Psoriasis vulgaris; E55.9 Vitamin D deficiency, unspecified; E66.9 Obesity, unspecified; F32.A Depression, unspecified; F41.9 Anxiety disorder, unspecified; Z88.0 Allergy status to penicillin; Z88.5 Allergy status to narcotic agent; Z88.8 Allergy status to other drugs, medicaments and biological substances; Z68.43 Body mass index [BMI] 50.0-59.9, adult
CPT/HCPCS: 71046; 80053; 83880; 84436; 84443; 84484; 85025; 93005; 99284

== ENCOUNTER → 2022-05-02 14:36 | Outpatient (CLI) | payer BC, SELFPAY | PROVIDERS: PCP Family Medicine; Visit Provider Nurse Practitioner Family | DX: R00.2 Palpitations (principal); R42 Dizziness and giddiness; R94.31 Abnormal electrocardiogram [ECG] [EKG] | CPT/HCPCS: 93270 ==

== ENCOUNTER → 2022-06-07 09:26 | Outpatient (CLI) | payer BC, SELFPAY ==
--- NOTE | 2022-06-07 09:32 | XR_ITS ---
FINAL REPORT CLINICAL HISTORY: rt thumb pain that radiates into wrist, swelling COMPARISON: March 2022 FINDINGS: 3 views of the right hand were obtained. There is no acute fracture or dislocation. There are mild degenerative changes along the radial aspect of the wrist. There is no soft tissue abnormality. IMPRESSION: Mild degenerative change along the radial aspect of the wrist. Reviewed, Interpreted and Dictated by Perez Lozada III, MD Transcribed by Guido Ambriz Authenticated and [facility]
== END ==
LOC: RAD 09:26
PROVIDERS: PCP Family Medicine; Visit Provider Orthopaedic Surgery
DX: S63.641A Sprain of metacarpophalangeal joint of right thumb, initial encounter (principal)
CPT/HCPCS: 73130

== ENCOUNTER → 2022-06-21 08:40 | Outpatient (CLI) | payer BC, SELFPAY ==
--- NOTE | 2022-06-21 08:42 | CA_ITS ---
APPROVED REPORT EXAM: Comprehensive 2D, Doppler, and color-flow Echocardiogram Air Pumper: Zakiya Foster CRT Ht: 5 ft 4 in Wt: 290lbs BSA: 2.29 BP: 190/101 mmHg Indications: Abnormal ECG, Shortness of Breath, Palpitations 2D Dimensions LVOT 1.88 cm (M/F) 1.5-2.5 LA Volume 23.30 mL LA Volume Index 9.90 mL/m2 (M/F) 16-34 M-Mode Dimensions RVDd 2.89 cm (0.9-2.6) LA Diam 3.97 cm (1.9-4.0) LVDd 4.98 cm (3.5-5.7) Ao Diam 3.69 cm (2.0-3.7) LVDs 3.34 cm (3.5-5.7) IVSd 1.67 cm (0.6-1.1) PWd 0.57 cm (0.6-1.1) EF (Teich) 61.20% FS 32.90% EDV (Teich) 117.10 mL TAPSE 1.79 (<1.7) ESV (Teich) 45.40 mL LV Diastology E Decel Time 343.00 (160-240 msec) E/A Ratio 0.67 MED E' 7.00 (< 7 cm/sec) MED A' 13.00 cm/s E'/MED E' Ratio 9.06 (>14) LAT E' 6.00 (<10 cm/sec) LAT A' 12.50 cm/s E/LAT E' Ratio 10.57 (>14) Aortic Valve AO Peak GR. 8.30 mmHg Mitral Valve MV A Velocity 94.00 (40-130 cm/s) E/A Ratio 0.67 MV Decel. Time 343.00 (160-240 ms) Pulmonary Valve PV Peak Velocity 111.00 (50-150 cm/s) Tricuspid Valve TR P. Velocity 274.00 cm/s RAP Estimate 10.00 mmHg RVSP 40.10 mmHg Left Ventricle Left atrium is mildly enlarged, left ventricle is normal size mild concentric left ventricular hypertrophy, estimated ejection fraction 55% with no regional wall motion abnormality, grade 1 diastolic dysfunction seen without tissue Doppler evidence of raise left atrial pressure. Right Ventricle Right atrium and right ventricle are mildly enlarged with normal contractility. Aortic Valve Aortic valve is minimally thickened and fibrosed there is no aortic stenosis or aortic insufficiency. Mitral Valve Mitral valve is grossly normal, there is trace mitral regurgitation. Tricuspid Valve Tricuspid valve grossly normal, there is trace tricuspid regurgitation, tricuspid regurgitation jet velocity is inadequate for calculation of the right ventricular systolic pressure. Pulmonic Valve Pulmonic valve is poorly visualized. Great Vessels Aortic root is normal size. Inferior vena cava is poorly visualized. Pericardium No significant pericardial effusion noted. Conclusion 1. Biatrial enlargement, normal left ventricular size, mild concentric left ventricular hypertrophy, estimated ejection fraction 55% with no regional wall motion abnormality, grade 1 diastolic dysfunction seen without tissue Doppler evidence of raise left atrial pressure. 2. Mildly enlarged right ventricle with normal contractility. 3. Trace mitral and tricuspid regurgitation. 4. No significant pericardial effusion noted. 5. Inferior vena cava is poorly visualized. Electronically signed by : Michael Haynes MD 06/22/2022 12:02:44
== END ==
LOC: RT 08:42
PROVIDERS: PCP Family Medicine; Visit Provider Nurse Practitioner Family
DX: R00.2 Palpitations (principal); R42 Dizziness and giddiness; R94.31 Abnormal electrocardiogram [ECG] [EKG]
CPT/HCPCS: 93306

== ENCOUNTER 2022-09-10 08:58 | Emergency (ER) | payer BC, SELFPAY ==
[2022-09-10] VITALS (10 sets, daily range): BP systolic 160–192; BP diastolic 81–89; PULSE 62–77; RESP 14–17; TEMP 36.7–36.8; O2SAT 91–95; BMI 50.4
--- NOTE | 2022-09-10 08:57 | ECG_ITS ---
APPROVED REPORT Exam: Resting ECG HR:80 bpm ECG Measurements Heart Rate 80 AXES UT 163 P 20 QRSd 88 QRS 31 QT 379 T 44 QTc 414 Conclusion SINUS RHYTHM WITH OCCASIONAL SUPRAVENTRICULAR PREMATURE COMPLEXES MINIMAL ST DEPRESSION [0.025+ mV ST DEPRESSION] BORDERLINE ECG UNCONFIRMED REPORT Electronically signed by : Michael Flores MD 09/11/2022 15:44:52
--- NOTE | 2022-09-10 09:01 | XR_ITS ---
PROCEDURE INFORMATION: Exam: XR Chest Exam date and time: 09/10/2022 9:38 AM Age: 62 years old Clinical indication: Pain; Angina pectoris; Additional info: Chest pain TECHNIQUE: Imaging protocol: Radiologic exam of the chest. Views: 1 view. COMPARISON: CR XR CHEST 2V 04/27/2022 7:53 PM FINDINGS: Lungs: Overlying soft tissues slightly limited evaluation of the lung bases. No definite consolidation. Pleural spaces: No pleural effusion. No pneumothorax. Heart/Mediastinum: The heart is mildly enlarged. Bones/joints: Unremarkable. Soft tissues: Overlying soft tissues slightly limited evaluation of the lung bases. IMPRESSION: 1. No definite consolidation 2. A followup PA and lateral radiograph is recommended when the patient is clinically able.
--- NOTE | 2022-09-10 09:10 | HMH.EDGENADL ---
Discharge Plan Disposition Patient Disposition: Home, Self-Care Condition: Fair Prescriptions Prescriptions: New ondansetron [ondansetron] 4 mg tablet,disintegrating 4 mg PO TIDP PRN (Reason: Nausea) Qty: 10 0RF ondansetron [ondansetron] 4 mg tablet,disintegrating 4 mg PO TIDP PRN (Reason: Nausea) Qty: 10 0RF cefdinir 300 mg capsule 300 mg PO BID 5 Days Qty: 10 0RF No Action bisoprolol fumarate 5 mg tablet 2.5 mg PO DAILY diazepam [Valium] 2 mg tablet 2 mg PO DAILYP PRN (Reason: Anxiety) diclofenac sodium [Voltaren Arthritis Pain] 1 % gel 2 g topical QID Qty: 100 3RF Rx Instructions: apply to hand diltiazem HCl 120 mg tablet 60 mg PO QHS lovastatin 10 MG tablet 10 mg PO DAILY Referrals Follow up/Referrals: Provider,Referral, MD [Referring] - See instructions Clinical Impressions Clinical Impression: Nausea & vomiting, Diarrhea, UTI (urinary tract infection) Instructions Patient Instructions: DI for Urinary Tract Infection (UTI) Discharge ED Provider: Theo Nicolas General Adult HPI General Chief complaint: Chest Pain Stated complaint: chest pain Time Seen by Provider: 09/10/22 09:00 Mode of Arrival: Ambulatory Limitations: No Limitations Description of Symptoms (Recalled from ER Triage Doc. by RN): pt comes in with c/o left sided chest pain that began last night into this am. pt also reports n/v/d since yesterday. pt reports stomach bug has been going through her house. History of Present Illness HPI narrative: Patient is a 62-year-old female with past medical history of PACs, hypertension who presents with concern for chest pain. She locates it on her left side. It does not radiate. No symptoms into her jaw or her arm. Denies any diaphoresis. She says that she has been having quite a bit of nausea and has had a substantial mount of diarrhea. She says that they recently had a GI bug going to their house and she thought that she had recovered but she has had numerous bouts of diarrhea. Denies any hematochezia. Related Data Home Medications Medication Instructions Recorded Confirmed diazepam 2 mg tablet (Valium) 2 mg PO DAILYP PRN Anxiety 11/21/17 07/05/22 lovastatin 10 mg tablet 10 mg PO DAILY Cholesterol 03/15/18 07/05/22 bisoprolol fumarate 5 mg tablet 2.5 mg PO DAILY 05/10/22 07/05/22 diltiazem HCl 120 mg tablet 60 mg PO QHS Hypertension 07/05/22 07/05/22 Previous Rx's Medication Instructions Recorded diclofenac sodium 1 % topical gel 2 g topical QID #100 grams 06/07/22 (Voltaren Arthritis Pain) cefdinir 300 mg capsule 300 mg PO BID 5 days #10 caps 09/10/22 ondansetron 4 mg disintegrating 4 mg PO TIDP PRN Nausea #10 tabs 09/10/22 tablet ondansetron 4 mg disintegrating 4 mg PO TIDP PRN Nausea #10 tabs 09/10/22 tablet Allergies Allergy/AdvReac Type Severity Reaction Status Date / Time amoxicillin Allergy Intermediate Verified 09/10/22 09:09 fluticasone [From Flonase] Allergy Intermediate swelling Verified 09/10/22 09:09 of lips meperidine [From DEMEROL] Allergy Mild Verified 09/10/22 09:09 morphine [MORPHINE] Allergy Mild Verified 09/10/22 09:09 Penicillins Allergy Verified 09/10/22 09:09 [facility] Disclaimer: The information contained in this section may have been updated after the patient was seen, as this information can be updated by other users. Medical History Abnormal electrocardiogram [ECG] [EKG] Actinic keratoses Anxiety Dizziness Hypoglycemia Labyrinthitis Psoriasiform eczema Sinus tachycardia Vitamin D deficiency (~11/27/17) Social History Smoking Status: Never smoker alcohol intake: never substance use type: denies use current occupational status: other Travel in the last 8 weeks: None household members: spouse housing: house caffeine: No ROS Obtained: Yes A
[2022-09-10 09:53] LABS: Chloride 104 mmol/L (98-107); Potassium 3.6 mmoL/L (3.5-5.1); Sodium 141 mmol/L (136-145)
[2022-09-10 09:56] LABS: Alanine Aminotransferase 38 U/L (12-78); Albumin Level 4.3 g/dl (3.5-5.0); Albumin/Globulin Ratio 1.3 (1.1-1.8); Alkaline Phosphatase 85 U/L (38-126); Anion Gap 15.6 mEq/L (5-15); Aspartate Amino Transferase 44 U/L (14-36); Bilirubin,Total 0.6 mg/dl (0.2-1.3); Blood Urea Nitrogen 13 mg/dl (7-17); Calcium 9.1 mg/dl (8.4-10.2); Carbon Dioxide 25 mmol/L (22.0-30.0); Creatinine Clearance Estimated 51 mL/min (50-200); Estimated Glomerular Filt Rate 73 ml/min (>60); GFR (African American) 88 ML/MIN (>60); Globulin 3.4 g/dL (1.3-3.2); Glucose 139 mg/dl (74-100); Lipase 146 U/L (23-300); Total Protein,Serum 7.7 g/dl (6.3-8.2)
[2022-09-10 10:04] LABS: Microscopic, Urine URINE MICROSCOPIC (MICROSCOPIC)
[2022-09-10 10:04] LABS: Basophils # 0.1 K/mm3 (0-0.2); Basophils % 1.5 % (0.1-2.0); Eosinophils # 0.4 K/mm3 (0.0-0.4); Eosinophils % 4.3 % (0.1-12.0); Hematocrit 46.5 % (37.0-47.0); Hemoglobin 14.7 g/dL (12.2-16.2); Lymphocytes # 3.7 K/mm3 (0.7-4.5); Lymphocytes % 42.4 % (10-50); Mean Corpuscular HGB Conc 31.6 g/dL (31.8-35.4); Mean Corpuscular Hemoglobin 29.1 pg (27.0-31.2); Mean Corpuscular Volume 92.1 fl (81-99); Mean Platelet Volume 9.8 fl (7.4-10.4); Monocytes # 0.5 K/mm3 (0.1-1.0); Monocytes % 5.5 % (1.7-9.3); Neutrophils % 46.3 % (37.0-80.0); Platelet Count 218 K/mm3 (142-424); Red Blood Count 5.05 M/mm3 (4.20-5.40); Red Cell Distribution Width 14.5 % (11.5-17.5); White Blood Count 8.7 K/mm3 (4.8-10.8)
[2022-09-10 10:05] LABS: NT Pro Brain Natriuretic Pep. 174 pg/mL (0-125)
[2022-09-10 10:10] LABS: Appearance,Urine CLEAR (Clear); Bilirubin,Urine Negative (Negative); Blood, Urine TRACE-I (Negative); Color,Urine YELLOW (Yellow); Glucose,Urine (UA) Negative (Negative); Ketones,Urine Negative (Negative); Leukocyte Esterase,Urine 3+ (Negative); Nitrate,Urine Negative (Negative); Protein,Urine 2+ (Negative); Specific Gravity, Urine <= 1.005 (1.005-1.030); Urobilinogen,Urine 0.2 EU/dl (0.2)
[2022-09-10 10:24] LABS: Bacteria,Urine Trace /lpf; RBC,Urine Occasional #/hpf (0-3)
--- NOTE | 2022-09-10 10:53 | PC.NURSE ---
pt setting up in bed hsdenisse @ [facility]
[2022-09-10 10:55] LABS: Troponin I < 0.01 ng/ml (0.00-0.034)
== END 2022-09-10 13:07 | disposition home or self-care (01) ==
PROVIDERS: Emergency Provider Student in an Organized Health Care Education/Training Program; PCP Family Medicine
DX: R07.9 Chest pain, unspecified (principal); N39.0 Urinary tract infection, site not specified; R19.7 Diarrhea, unspecified
CPT/HCPCS: 71045; 80053; 81001; 83690; 83880; 84484; 85025; 86140; 87086; 93005; 96360; 96374; 99285; J2405

== ENCOUNTER 2023-03-18 14:00 | Emergency (ER) | payer BC, SELFPAY ==
--- NOTE | 2023-03-18 14:09 | EXP.UTC ---
Discharge Plan Disposition Patient Disposition: Home, Self-Care Condition: Good Prescriptions Prescriptions: New cefdinir 300 mg capsule 300 mg PO BID Qty: 20 0RF prednisone 20 mg tablet 20 mg PO BID Qty: 10 0RF mometasone [Nasonex 24hr Allergy] 50 mcg/actuation spray,non-aerosol 2 spray intranasal DAILY Qty: 17 0RF Rx Instructions: administer into each nostril No Action bisoprolol fumarate 5 mg tablet 2.5 mg PO DAILY diltiazem HCl 120 mg tablet 60 mg PO QHS lovastatin 10 MG tablet 10 mg PO DAILY Referrals Follow up/Referrals: Moises Escobar MD [Primary Care Provider] - See instructions Clinical Impressions Clinical Impression: Bilateral otitis media Instructions Patient Instructions: DI for Otitis Media (Middle Ear Infection)-Child Discharge ED Provider: Anita Danielle [facility] [place] HPI General Stated complaint: ear pain Time Seen by Provider: 03/18/23 14:23 Description of Symptoms (Recalled from Triage Doc. by RN): Patient had upper respiratory infection last week. Now has bilateral ear pain and dizziness. No fever. History of Present Illness Provider Complaint: Patient had upper respiratory infection last week. Now has bilateral ear pain and dizziness. No fever. Onset (ago): day(s) (3) Relieving factors: none Exacerbating factors: none Associated symptoms: denies other symptoms Treatments prior to arrival: none Related Data Home Medications Medication Instructions Recorded Confirmed lovastatin 10 mg tablet 10 mg PO DAILY Cholesterol 03/15/18 03/18/23 bisoprolol fumarate 5 mg tablet 2.5 mg PO DAILY Hypertension 05/10/22 03/18/23 diltiazem HCl 120 mg tablet 60 mg PO QHS Hypertension 07/05/22 03/18/23 Previous Rx's Medication Instructions Recorded cefdinir 300 mg capsule 300 mg PO BID #20 caps 03/18/23 mometasone 50 mcg/actuation nasal 2 spray intranasal DAILY #17 grams 03/18/23 spray (Nasonex 24hr Allergy) prednisone 20 mg tablet 20 mg PO BID #10 tabs 03/18/23 Allergies Allergy/AdvReac Type Severity Reaction Status Date / Time amoxicillin Allergy Intermediate Verified 10/03/22 09:14 fluticasone [From Flonase] Allergy Intermediate swelling Verified 10/03/22 09:14 of lips meperidine [From DEMEROL] Allergy Mild Verified 10/03/22 09:14 morphine [MORPHINE] Allergy Mild Verified 10/03/22 09:14 Penicillins Allergy Verified 10/03/22 09:14 [facility] Disclaimer: The information contained in this section may have been updated after the patient was seen, as this information can be updated by other users. Medical History (Updated 03/18/23 @ 14:27 by ZENAIDA Mora) Abnormal electrocardiogram [ECG] [EKG] Actinic keratoses Anxiety Diastolic dysfunction Dizziness Hyperlipidemia Hypoglycemia Labyrinthitis Psoriasiform eczema Sinus tachycardia Vitamin D deficiency (~11/27/17) Social History Smoking Status: Never smoker alcohol intake: never substance use type: denies use current occupational status: other Travel in the last 8 weeks: None household members: spouse housing: house caffeine: No ROS Obtained: Yes All systems reviewed & no additional complaints except as documented ENT Ears, Nose, Mouth, and Throat: Reports otalgia and Reports vertigo Neurologic Neurologic: Reports vertigo Physical Exam General General appearance: alert and in no apparent distress Head Head exam: atraumatic, normocephalic and normal inspection Eye Eye exam: Present normal appearance and PERRL ENT ENT exam: Present normal exam, mucous membranes moist and normal external ear exam Expanded ENT Exam TM/Canal exam: Bilateral TM: erythema, bulging and effusion Neck Neck exam: Present normal inspection and trachea midline Chest Chest inspection: Present normal inspection and symmetric chest wall rise Respiratory Respiratory exam: Present normal lung sounds josé
[2023-03-18 14:10] VITALS: BP 183/104; PULSE 100; RESP 20; TEMP 36.8; O2SAT 95; BMI 51.0
[2023-03-18 14:20] VITALS: BP 183/104; PULSE 100; RESP 20; TEMP 36.8; O2SAT 95
== END 2023-03-18 14:30 | disposition home or self-care (01) ==
PROVIDERS: Emergency Provider Physician Assistant; PCP Family Medicine
DX: H66.93 Otitis media, unspecified, bilateral (principal); I51.89 Other ill-defined heart diseases; E78.5 Hyperlipidemia, unspecified; E55.9 Vitamin D deficiency, unspecified; L57.0 Actinic keratosis; L30.8 Other specified dermatitis; F41.9 Anxiety disorder, unspecified
CPT/HCPCS: 99212; 99214; G0463

== ENCOUNTER 2023-09-21 12:01 | Emergency (ER) | payer BC, SELFPAY ==
[2023-09-21 12:20] VITALS: BP 206/97; PULSE 87; RESP 20; TEMP 36.4; O2SAT 95; BMI 52.2
--- NOTE | 2023-09-21 12:22 | ED_ITS ---
Discharge Plan Disposition Patient Disposition: Home, Self-Care Condition: Good Prescriptions Prescriptions: New azithromycin [Zithromax] 250 mg tablet 250 mg PO UD DOSE PK Qty: 6 0RF Rx Instructions: Take two (2) tablets today, then one (1) tablet days #2 thru #5 benzonatate 100 mg capsule 100 mg PO TIDP PRN (Reason: Cough) Qty: 30 0RF methylprednisolone 4 mg Tablets,Dose Pack 4 mg PO DIRECTED 6 Days Qty: 21 0RF Rx Instructions: Take 1 pack as directed for 6 days polymyxin B sulf-trimethoprim 10,000 unit- 1 mg/mL drops 1 drp Eye-Right Q3H 7 Days Qty: 10 0RF Rx Instructions: while awake; do not exceed 6 doses in 24 hours No Action bisoprolol fumarate 5 mg tablet 2.5 mg PO DAILY Qty: 90 3RF diltiazem HCl 120 mg tablet 60 mg PO QHS lovastatin 10 MG tablet 10 mg PO DAILY Referrals Follow up/Referrals: Moises Escobar MD [Primary Care Provider] - See instructions Activity Restrictions/Add. Instructions Additional Instructions/Restrictions: Drink plenty of fluids. Take tylenol or ibuprofen for pain or fever. Take the medications as directed. Follow up with your regular doctor. GO TO THE ER FOR ANY WORSENING SYMPTOMS Use the eye drops as directed. Strict hand washing in the house hold, because conjunctivitis is very contagious. Follow up with your regular doctor. GO TO THE ER FOR ANY WORSENING SYMPTOMS OR CONCERNS Clinical Impressions Clinical Impression: Otitis media, Sinusitis, Conjunctivitis of right eye Instructions Patient Instructions: How to Instill Eye Drops, Middle Ear Infection, DI for Sinusitis Discharge ED Provider: Michael Recinos [facility] General Stated complaint: Pain in both ears, dizziness, sore throat, cough Time Seen by Provider: 09/21/23 12:22 History of Present Illness Provider Complaint: She states that for the past 3 days she has had ear pain, decreased hearing in her left ear, right eye irritation, sinus congestion, and a cough. Related Data Home Medications Medication Instructions Recorded Confirmed lovastatin 10 mg tablet 10 mg PO DAILY Cholesterol 03/15/18 09/21/23 diltiazem HCl 120 mg tablet 60 mg PO QHS Hypertension 01/24/23 04/11/24 Previous Rx's Medication Instructions Recorded bisoprolol fumarate 5 mg tablet 2.5 mg (1/2 x 5 mg) PO DAILY 05/26/23 Hypertension #90 tabs azithromycin 250 mg tablet 250 mg PO UD DOSE PK #6 tabs 09/21/23 (Zithromax) benzonatate 100 mg capsule 100 mg PO TIDP PRN Cough #30 caps 09/21/23 methylprednisolone 4 mg tablets in 4 mg PO DIRECTED 6 days #21 tabs 09/21/23 a dose pack polymyxin B sulfate 10,000 1 drp Eye-Right Q3H 7 days #10 mL 09/21/23 unit-trimethoprim 1 mg/mL eye drops Allergies Allergy/AdvReac Type Severity Reaction Status Date / Time amoxicillin Allergy Intermediate Verified 04/13/23 10:38 fluticasone [From Flonase] Allergy Intermediate swelling Verified 04/13/23 10:38 of lips meperidine [From DEMEROL] Allergy Mild Verified 04/13/23 10:38 morphine [MORPHINE] Allergy Mild Verified 04/13/23 10:38 Penicillins Allergy Verified 04/13/23 10:38 [facility]SH [facility] Disclaimer: The information contained in this section may have been updated after the patient was seen, as this information can be updated by other users. Medical History Abnormal electrocardiogram [ECG] [EKG] Actinic keratoses Anxiety Diastolic dysfunction Dizziness Hyperlipidemia Hypoglycemia Labyrinthitis Psoriasiform eczema Sinus tachycardia Vitamin D deficiency (~11/27/17) Social History Smoking Status: Never smoker alcohol intake: never substance use type: denies use current occupational status: other Travel in the last 8 weeks: None household members: spouse housing: house caffeine: No ROS Obtained: Yes All systems reviewed & no additional complaints except as documented Constitutional Constitutional: Denies chills, Reports fever(s) and Reports poor appetite Eyes Eyes: Denies eye discharge ENT Ears, Nose, Mouth, and Throat: Denies ear discharge, Reports otalgia, Denies hearing loss, Denies sinus pain and Reports sore throat Cardiovascular Cardiovascular: Denies chest pain and Denies dyspnea Respiratory Respiratory: Denies chest congestion, Reports cough and Denies dyspnea Gastrointestinal Gastrointestingal: Denies abdominal pain, diarrhea, nausea or vomiting Musculoskeletal Musculoskeletal: Denies arthralgias Integumentary/Breasts Skin/Breast: Denies rash Physical Exam General General appearance: alert and in no apparent distress Head Head exam: atraumatic, normocephalic and normal inspection Eye Eye exam: Present normal appearance; Absent PERRL or EOMI ENT ENT exam: Present mucous membranes moist and normal external ear exam Expanded ENT Exam TM/Canal exam: Bilateral TM: erythema, bulging and effusion Nose exam: Absent sinus tenderness Nasal speculum exam: Bilateral: normal Mouth exam: Present normal external inspection and other; Absent drooling Teeth exam: Present normal inspection Throat exam: Present tonsillar erythema and tonsillomegaly Neck Neck exam: Present normal inspection, full ROM and trachea midline; Absent tenderness, meningismus or lymphadenopathy Chest Chest inspection: Present normal inspection and symmetric chest wall rise; Absent tenderness Respiratory Respiratory exam: Present normal lung sounds bilaterally; Absent respiratory distress, wheezes or stridor Cardiovascular Cardiovascular exam: Present regular rate, normal rhythm and normal heart sounds; Absent tachycardia or irregular rhythm Abdominal Exam Abdominal exam: Present soft and normal bowel sounds; Absent distention, tenderness, guarding, rebound or rigidity Extremities Exam Extremities exam: Present normal inspection and normal capillary refill; Absent tenderness, joint swelling or calf tenderness Back Exam Back exam: Present normal inspection and full ROM; Absent tenderness, CVA tenderness (R) or CVA tenderness (L) Neurological Exam Neurological exam: Present alert, oriented X3, CN II-XII intact, normal gait and reflexes normal; Absent motor sensory deficit Psychiatric Psychiatric exam: Present normal affect and normal mood Skin Skin exam: Present warm, dry, intact and normal color Lymphatic Lymphatic Findings: no adenopathy Medical Decision Making Medical Records Medical records reviewed: No I reviewed the patient's medical records. Kt Inquiry Pt receiving controlled substance: No Lab Data Lab results reviewed: Yes I reviewed the patient's lab results.
[2023-09-21 12:43] LABS: UTC Strep Screen (Rapid) Negative (Negative)
[2023-09-21 13:08] VITALS: BP 206/97; PULSE 87; RESP 20; TEMP 36.4; O2SAT 95
== END 2023-09-21 13:13 | disposition home or self-care (01) ==
PROVIDERS: Emergency Provider Nurse Practitioner Family; PCP Family Medicine
DX: H66.93 Otitis media, unspecified, bilateral (principal); J01.90 Acute sinusitis, unspecified; H10.31 Unspecified acute conjunctivitis, right eye; R05.9 Cough, unspecified; I10 Essential (primary) hypertension; E78.5 Hyperlipidemia, unspecified
CPT/HCPCS: 87880; 99212; 99214; G0463

== ENCOUNTER 2023-11-07 14:59 | Emergency (ER) | payer BC, SELFPAY ==
[2023-11-07 15:30] VITALS: BP 152/68; PULSE 95; RESP 18; TEMP 37; O2SAT 96; BMI 52.2
--- NOTE | 2023-11-07 15:49 | ED_ITS ---
Discharge Plan Disposition Patient Disposition: Home, Self-Care Condition: Good Prescriptions Prescriptions: New cefdinir 300 mg capsule 300 mg PO BID Qty: 20 0RF No Action bisoprolol fumarate 5 mg tablet 2.5 mg PO DAILY Qty: 90 3RF diltiazem HCl 120 mg tablet 60 mg PO QHS lovastatin 10 MG tablet 10 mg PO DAILY Referrals Follow up/Referrals: Moises Escobar MD [Primary Care Provider] - See instructions Activity Restrictions/Add. Instructions Additional Instructions/Restrictions: Drink plenty of fluids. Take tylenol for pain or fever. Take the medications as directed. Follow up with your regular doctor. GO TO THE ER FOR ANY WORSENING SYMPTOMS Clinical Impressions Clinical Impression: Otitis media Instructions Patient Instructions: Middle Ear Infection Discharge ED Provider: Michael Recinos [facility] General Stated complaint: trouble hearing, pain in both ears Time Seen by Provider: 11/07/23 15:49 Related Data Home Medications Medication Instructions Recorded Confirmed lovastatin 10 mg tablet 10 mg PO DAILY Cholesterol 03/15/18 11/07/23 diltiazem HCl 120 mg tablet 60 mg PO QHS Hypertension 07/05/22 11/07/23 Previous Rx's Medication Instructions Recorded bisoprolol fumarate 5 mg tablet 2.5 mg (1/2 x 5 mg) PO DAILY 05/26/23 Hypertension #90 tabs cefdinir 300 mg capsule 300 mg PO BID #20 caps 11/07/23 Allergies Allergy/AdvReac Type Severity Reaction Status Date / Time amoxicillin Allergy Intermediate Verified 11/07/23 15:57 fluticasone [From Flonase] Allergy Intermediate swelling Verified 11/07/23 15:57 of lips meperidine [From DEMEROL] Allergy Mild Verified 11/07/23 15:57 morphine [MORPHINE] Allergy Mild Verified 11/07/23 15:57 Penicillins Allergy Verified 11/07/23 15:57 [facility] Disclaimer: The information contained in this section may have been updated after the patient was seen, as this information can be updated by other users. Medical History Abnormal electrocardiogram [ECG] [EKG] Actinic keratoses Anxiety Diastolic dysfunction Dizziness Hyperlipidemia Hypoglycemia Labyrinthitis Psoriasiform eczema Sinus tachycardia Vitamin D deficiency (~11/27/17) Social History Smoking Status: Never smoker alcohol intake: never substance use type: denies use current occupational status: other Travel in the last 8 weeks: None household members: spouse housing: house caffeine: No ROS Obtained: Yes All systems reviewed & no additional complaints except as documented Constitutional Constitutional: Denies chills, Reports fever(s) and Reports poor appetite Eyes Eyes: Denies eye discharge ENT Ears, Nose, Mouth, and Throat: Denies ear discharge, Reports otalgia, Denies hearing loss, Denies sinus pain and Reports sore throat Cardiovascular Cardiovascular: Denies chest pain and Denies dyspnea Respiratory Respiratory: Denies chest congestion, Reports cough and Denies dyspnea Gastrointestinal Gastrointestingal: Denies abdominal pain, diarrhea, nausea or vomiting Musculoskeletal Musculoskeletal: Denies arthralgias Integumentary/Breasts Skin/Breast: Denies rash Physical Exam General General appearance: alert and in no apparent distress Head Head exam: atraumatic, normocephalic and normal inspection Eye Eye exam: Present normal appearance; Absent PERRL or EOMI ENT ENT exam: Present mucous membranes moist and normal external ear exam Expanded ENT Exam TM/Canal exam: Bilateral TM: erythema, bulging and effusion Nose exam: Absent sinus tenderness Nasal speculum exam: Bilateral: normal Mouth exam: Present normal external inspection and other; Absent drooling Teeth exam: Present normal inspection Throat exam: Present tonsillar erythema and tonsillomegaly Neck Neck exam: Present normal inspection, full ROM and trachea midline; Absent tenderness, meningismus or lymphadenopathy Chest Chest inspection: Present normal inspection and symmetric chest wall rise; Absent tenderness Respiratory Respiratory exam: Present normal lung sounds bilaterally; Absent respiratory distress, wheezes or stridor Cardiovascular Cardiovascular exam: Present regular rate, normal rhythm and normal heart sounds; Absent tachycardia or irregular rhythm Abdominal Exam Abdominal exam: Present soft and normal bowel sounds; Absent distention, tenderness, guarding, rebound or rigidity Extremities Exam Extremities exam: Present normal inspection and normal capillary refill; Absent tenderness, joint swelling or calf tenderness Back Exam Back exam: Present normal inspection and full ROM; Absent tenderness, CVA tenderness (R) or CVA tenderness (L) Neurological Exam Neurological exam: Present alert, oriented X3, CN II-XII intact, normal gait and reflexes normal; Absent motor sensory deficit Psychiatric Psychiatric exam: Present normal affect and normal mood Skin Skin exam: Present warm, dry, intact and normal color Lymphatic Lymphatic Findings: no adenopathy Medical Decision Making Medical Records Medical records reviewed: No I reviewed the patient's medical records. Kt Inquiry Pt receiving controlled substance: No
[2023-11-07 17:04] VITALS: BP 152/68; PULSE 95; RESP 18; TEMP 37; O2SAT 96
== END 2023-11-07 16:30 | disposition home or self-care (01) ==
PROVIDERS: Emergency Provider Nurse Practitioner Family; PCP Family Medicine
DX: H66.93 Otitis media, unspecified, bilateral (principal); H92.03 Otalgia, bilateral
CPT/HCPCS: 99212; 99214; G0463

== ENCOUNTER 2023-11-24 10:51 | Outpatient (CLI) | payer BC, SELFPAY ==
[2023-11-24 11:47] LABS: Alanine Aminotransferase 40 U/L (12-78); Albumin Level 4.2 g/dl (3.5-5.0); Albumin/Globulin Ratio 1.6 (1.1-1.8); Alkaline Phosphatase 76 U/L (38-126); Anion Gap 14.2 mEq/L (5-15); Aspartate Amino Transferase 41 U/L (14-36); Bilirubin,Total 0.5 mg/dl (0.2-1.3); Blood Urea Nitrogen 15 mg/dl (7-17); Calcium 9.5 mg/dl (8.4-10.2); Carbon Dioxide 26 mmol/L (22.0-30.0); Chloride 107 mmol/L (98-107); Chol/HDL Ratio 4.3 (1-3.5); Cholesterol 205 mg/dl (140-200); Estimated Glomerular Filt Rate 85 ml/min (>60); GFR (African American) 103 ML/MIN (>60); Globulin 2.7 g/dL (1.3-3.2); Glucose 131 mg/dl (74-100); HDL Cholesterol 48 mg/dl (40-60); Potassium 4.2 mmoL/L (3.5-5.1); Sodium 143 mmol/L (136-145); Total Protein,Serum 6.9 g/dl (6.3-8.2); Triglycerides 206 mg/dl (30-150); VLDL Cholesterol 41 mg/dL (0-40)
[2023-11-24 11:58] LABS: Direct LDL Cholesterol 117.02 mg/dL (100-129)
[2023-11-24 12:04] LABS: 25-OH Vitamin D, Total 19.5 ng/mL (30-100)
[2023-11-24 12:06] LABS: Free T4 (Free Thyroxine) 1.01 ng/dl (0.78-2.19)
[2023-11-24 12:18] LABS: Thyroid Stimulating Hormone 2.93 uIU/mL (0.465-4.68)
== END 2023-11-24 23:59 | disposition home or self-care (01) ==
LOC: LAB 10:51
PROVIDERS: PCP Family Medicine; Visit Provider Physician Assistant
DX: E78.2 Mixed hyperlipidemia (principal); L65.9 Nonscarring hair loss, unspecified; E55.9 Vitamin D deficiency, unspecified; Z68.43 Body mass index [BMI] 50.0-59.9, adult; E66.9 Obesity, unspecified
CPT/HCPCS: 36415; 80053; 80061; 82306; 84439; 84443

== ENCOUNTER 2024-02-06 11:11 | Emergency (ER) | payer BC, SELFPAY ==
--- NOTE | 2024-02-06 11:09 | ECG_ITS ---
APPROVED REPORT Exam: Resting ECG HR:104 bpm ECG Measurements Heart Rate 104 AXES AK 148 P 14 QRSd 97 QRS 41 QT 326 T 57 QTc 387 Conclusion SINUS TACHYCARDIA MODERATE ST DEPRESSION [0.05+ mV ST DEPRESSION] ABNORMAL ECG Electronically signed by : Ugo Coulter, 02/06/2024 16:11:42
[2024-02-06 11:15] VITALS: BP 175/97; PULSE 108; RESP 20; TEMP 36.6; O2SAT 97; BMI 51.5
--- NOTE | 2024-02-06 11:17 | XR_ITS ---
FINAL REPORT CLINICAL HISTORY: Precordial chest pain, cough FINDINGS: A single view of the chest was obtained. The heart is mildly enlarged. The mediastinum is unremarkable. The lungs are underinflated but clear. There is no pleural effusion. There is no pneumothorax. There is no acute osseous abnormality. IMPRESSION: No acute cardiopulmonary process. Reviewed, Interpreted and Dictated by Drew Pereira MD Transcribed by Roxie Long Authenticated and [facility]
--- NOTE | 2024-02-06 11:20 | PC.NURSE ---
DR BUITRAGO AT BEDSIDE
[2024-02-06 11:27] LABS: Basophils # 0.1 K/mm3 (0-0.2); Eosinophils # 0.2 K/mm3 (0.0-0.4); Eosinophils % 2.5 % (0.1-12.0); Hematocrit 48.3 % (37.0-47.0); Hemoglobin 15.4 g/dL (12.2-16.2); Lymphocytes # 4.2 K/mm3 (0.7-4.5); Lymphocytes % 47.9 % (10-50); Mean Corpuscular HGB Conc 31.8 g/dL (31.8-35.4); Mean Corpuscular Hemoglobin 29.3 pg (27.0-31.2); Mean Corpuscular Volume 92.1 fl (81-99); Mean Platelet Volume 9.6 fl (7.4-10.4); Monocytes # 0.5 K/mm3 (0.1-1.0); Monocytes % 5.4 % (1.7-9.3); Neutrophils # 3.8 K/mm3 (1.8-7.8); Neutrophils % 43.3 % (37.0-80.0); Platelet Count 232 K/mm3 (142-424); Red Blood Count 5.24 M/mm3 (4.20-5.40); Red Cell Distribution Width 14.3 % (11.5-17.5); White Blood Count 8.8 K/mm3 (4.8-10.8)
[2024-02-06 11:31] VITALS: BP 169/81; PULSE 91; RESP 16; O2SAT 93
[2024-02-06 11:31] LABS: Albumin Level 4.5 g/dl (3.5-5.0); Chloride 110 mmol/L (98-107); Sodium 143 mmol/L (136-145)
[2024-02-06 11:32] LABS: Prothrombin Time 10.2 seconds (10.1-12.5)
[2024-02-06 11:34] LABS: Alanine Aminotransferase 53 U/L (12-78); Albumin/Globulin Ratio 1.3 (1.1-1.8); Alkaline Phosphatase 99 U/L (38-126); Aspartate Amino Transferase 48 U/L (14-36); Bilirubin,Total 0.6 mg/dl (0.2-1.3); Blood Urea Nitrogen 13 mg/dl (7-17); Calcium 8.9 mg/dl (8.4-10.2); Carbon Dioxide 24 mmol/L (22.0-30.0); Creatinine Clearance Estimated 50 mL/min (50-200); Estimated Glomerular Filt Rate 73 ml/min (>60); GFR (African American) 88 ML/MIN (>60); Globulin 3.4 g/dL (1.3-3.2); Glucose 137 mg/dl (74-100); Lipase 154 U/L (23-300); Total Protein,Serum 7.9 g/dl (6.3-8.2)
--- NOTE | 2024-02-06 11:51 | HMH.EDGENADL ---
Discharge Plan Disposition Patient Disposition: Home, Self-Care Condition: Good Prescriptions Prescriptions: New ondansetron 4 mg tablet,disintegrating 4 mg PO Q8 PRN (Reason: nausea and vomiting) 5 Days Qty: 15 0RF famotidine 20 mg tablet 20 mg PO DAILY 14 Days Qty: 14 0RF No Action lovastatin 20 mg tablet 20 mg PO DAILY Patient Comments: TAKE 1 TABLET BY MOUTH DAILY WITH THE EVENING MEAL diazepam 2 mg tablet 2 mg PO BID PRN Patient Comments: TAKE 1 TO 2 TABLETS BY MOUTH TWICE DAILY NEEDED bisoprolol fumarate 5 mg tablet 2.5 mg PO DAILY Qty: 90 3RF diltiazem HCl 120 mg tablet 60 mg PO QHS Referrals Follow up/Referrals: Provider,Referral, MD [Referring] - See instructions Activity Restrictions/Add. Instructions Additional Instructions/Restrictions: Stay well-hydrated. Please follow up with your primary care provider in 2-3 days. Please return to ED if your symptoms worsen, change in location, change in severity, new symptoms develop or if you become concerned for your health. Clinical Impressions Clinical Impression: Nausea, Chest pain, Acute viral syndrome Print Language Print Language: Tamazight Discharge ED Provider: Ugo Coulter Adult HPI General Chief complaint: Upper Respiratory Infection Stated complaint: chest pain Time Seen by Provider: 02/06/24 11:14 Mode of Arrival: Ambulatory Source of Information: Patient Limitations: No Limitations Description of Symptoms (Recalled from ER Triage Doc. by RN): pt to ed c/o chest heaviness and cough that was a gradual onset this am. pt reports a hx of GERD. History of Present Illness HPI narrative: Patient is a 63-year-old female with history of hypertension, hyperlipidemia, diabetes, started Mounjaro 1 month ago, PACs, gastritis. Patient is presenting today for 3 days of cough, dry cough. She also reports some epigastric abdominal burning sensation, radiating into her chest and occasionally to her left shoulder. She reports nausea without vomiting. Has had some loose stools that are nonbloody. She endorses sick contacts with a positive COVID contact last week. She denies fevers, shortness of breath, numbness, weakness, tingling, dysuria, hematuria, blood in the stool. Related Data Home Medications ?Medication ?Instructions ?Recorded ?Confirmed diltiazem HCl 120 mg tablet 60 mg PO QHS Hypertension 07/05/22 11/28/23 diazepam 2 mg tablet 2 mg PO BID PRN 11/28/23 11/28/23 lovastatin 20 mg tablet 20 mg PO DAILY 11/28/23 11/28/23 Previous Rx's ?Medication ?Instructions ?Recorded bisoprolol fumarate 5 mg tablet 2.5 mg (1/2 x 5 mg) PO DAILY 05/26/23 Hypertension #90 tabs famotidine 20 mg tablet 20 mg PO DAILY 2 weeks #14 tabs 02/06/24 ondansetron 4 mg disintegrating 4 mg PO Q8 PRN nausea and vomiting 02/06/24 tablet 5 days #15 tabs Allergies Allergy/AdvReac Type Severity Reaction Status Date / Time amoxicillin Allergy Intermediate Verified 11/28/23 09:43 fluticasone [From Flonase] Allergy Intermediate swelling Verified 11/28/23 09:43 of lips meperidine [From DEMEROL] Allergy Mild Verified 11/28/23 09:43 morphine [MORPHINE] Allergy Mild Verified 11/28/23 09:43 Penicillins Allergy Verified 11/28/23 09:43 [facility] Disclaimer: The information contained in this section may have been updated after the patient was seen, as this information can be updated by other users. Medical History Diastolic dysfunction Hyperlipidemia Sinus tachycardia Dizziness Abnormal electrocardiogram [ECG] [EKG] Vitamin D deficiency (~11/27/17) Actinic keratoses Hypoglycemia Psoriasiform eczema Anxiety Labyrinthitis Social History Smoking Status: Never smoker alcohol intake: never substance use type: denies use current occupational status: other Travel in the last 8 weeks: None [facility]
[2024-02-06 11:52] LABS: Coronavirus 19, PCR Not Detected (NotDetected); Influenza A, PCR Not Detected (NotDetected); Influenza B, PCR Not Detected (NotDetected)
[2024-02-06 11:53] LABS: Troponin I < 0.01 ng/ml (0.00-0.034)
[2024-02-06 13:31] VITALS: BP 179/93; PULSE 84; RESP 17; O2SAT 94
[2024-02-06 14:01] VITALS: BP 185/84; PULSE 83; RESP 14; O2SAT 93
[2024-02-06 14:36] VITALS: BP 185/84; PULSE 83; RESP 14; TEMP 36.6
== END 2024-02-06 14:36 | disposition home or self-care (01) ==
PROVIDERS: Emergency Provider Emergency Medicine; PCP Family Medicine
DX: R07.9 Chest pain, unspecified (principal); R11.0 Nausea; R00.0 Tachycardia, unspecified; R05.9 Cough, unspecified; B34.9 Viral infection, unspecified
CPT/HCPCS: 71045; 80053; 83690; 83735; 84484; 85025; 85610; 87636; 93005; 96361; 96374; 99284; J7030; S0028

== ENCOUNTER 2024-04-23 08:12 | Day surgery (SDC) | payer BC, SELFPAY ==
[2024-04-22 08:59] VITALS: BMI 51.8
[2024-04-23] MEDS: CYCLOPENTOLATE 2% OPHTH SOLN 2ML BOTTLE OP ×3 (08:55→09:10)
[2024-04-23] MEDS: PHENYLEPHRINE 2.5% OPHTH SOLN 2ML OP ×3 (08:55→09:10)
[2024-04-23] MEDS: TETRACAINE 0.5% OPTH SOL 15ML OP ×3 (08:55→09:10)
[2024-04-23 09:03] VITALS: BP 175/85; PULSE 88; RESP 18; TEMP 36.2; O2SAT 93
[2024-04-23 09:13] LABS: POC Glucose,Bedside 164 (70-110)
[2024-04-23] MEDS: LACTATED RINGERS 1000ML 1,000 ML 25 ML IV (09:19)
[2024-04-23 09:59] VITALS: BP 146/67; PULSE 76; RESP 18; O2SAT 95
[2024-04-23] MEDS: MIDAZOLAM 2MG/2ML VIAL 1 MG IV (09:59)
[2024-04-23 10:04] VITALS: BP 158/70; PULSE 77; RESP 18; O2SAT 93
[2024-04-23] MEDS: TOBRAMYCIN/DEX OPTH SUSP 2.5ML OP (10:05)
[2024-04-23] MEDS: LIDOCAINE 1% PF 2ML AMPULE 2 ML IJ (10:05)
[2024-04-23] MEDS: TIMOLOL 0.5% OPTH SOLN 5ML OP (10:05)
[2024-04-23 10:09] VITALS: BP 154/70; PULSE 78; RESP 18; O2SAT 95
[2024-04-23 10:14] VITALS: BP 161/71; PULSE 78; RESP 18; O2SAT 96
[2024-04-23 10:15] VITALS: BP 168/70; PULSE 76; RESP 18; TEMP 36.5; O2SAT 98
== END 2024-04-23 10:25 | disposition home or self-care (01) ==
PROVIDERS: PCP Family Medicine; Visit Provider Ophthalmology
PROC: (CPT 66984; principal; 2024-04-23 09:30)
DX: H26.9 Unspecified cataract (principal)
CPT/HCPCS: 66984; 82962; J2250; J7120; V2632

== ENCOUNTER 2024-05-12 11:00 | Emergency (ER) | payer BC, SELFPAY ==
[2024-05-12 11:12] VITALS: BP 180/91; PULSE 90; RESP 20; TEMP 36.7; O2SAT 96; BMI 52.2
--- NOTE | 2024-05-12 11:41 | ED_ITS ---
Discharge Plan Disposition Patient Disposition: Home, Self-Care Condition: Good Prescriptions Prescriptions: New azithromycin [Zithromax] 250 mg tablet 250 mg PO UD DOSE PK Qty: 6 0RF Rx Instructions: Take two (2) tablets today, then one (1) tablet days #2 thru #5 methylprednisolone 4 mg Tablets,Dose Pack 4 mg PO DIRECTED 6 Days Qty: 21 0RF Rx Instructions: Take 1 pack as directed for 6 days No Action lovastatin 20 mg tablet 20 mg PO DAILY Patient Comments: TAKE 1 TABLET BY MOUTH DAILY WITH THE EVENING MEAL bisoprolol fumarate 5 mg tablet 2.5 mg PO DAILY Qty: 90 3RF diltiazem HCl 120 mg tablet 60 mg PO QHS Referrals Follow up/Referrals: Moises Escobar MD [Primary Care Provider] - See instructions Activity Restrictions/Add. Instructions Additional Instructions/Restrictions: Drink plenty of fluids. Take tylenol or ibuprofen for pain or fever. Take the medications as directed. Follow up with your regular doctor. GO TO THE ER FOR ANY WORSENING SYMPTOMS Clinical Impressions Clinical Impression: Otitis media Instructions Patient Instructions: Middle Ear Infection Print Language Print Language: Lao Discharge ED Provider: Michael Recinos [facility] [place] HPI General Stated complaint: Pain both ears, nausea, dizziness Mode of Arrival: Ambulatory Source of Information: Patient Time Seen by Provider: 05/12/24 11:41 Description of Symptoms (Recalled from Triage Doc. by RN): BILATERAL EAR PAIN AND POPPING, VERTIGO HEENT Symptoms (Recalled from RN notes): Yes Resp Symptoms (Recalled from RN notes): No Skin Symptoms (Recalled from RN notes): No MS Symptoms (Recalled from RN notes): No Functional Status (Recalled from RN notes): WNL Related Data Home Medications ?Medication ?Instructions ?Recorded ?Confirmed diltiazem HCl 120 mg tablet 60 mg PO QHS Hypertension 07/05/22 05/12/24 lovastatin 20 mg tablet 20 mg PO DAILY 11/28/23 05/12/24 Previous Rx's ?Medication ?Instructions ?Recorded bisoprolol fumarate 5 mg tablet 2.5 mg (1/2 x 5 mg) PO DAILY 05/26/23 Hypertension #90 tabs azithromycin 250 mg tablet 250 mg PO UD DOSE PK #6 tabs 05/12/24 (Zithromax) methylprednisolone 4 mg tablets in 4 mg PO DIRECTED 6 days #21 tabs 05/12/24 a dose pack Allergies Allergy/AdvReac Type Severity Reaction Status Date / Time amoxicillin Allergy Intermediate Hives Verified 04/23/24 09:03 fluticasone (From Flonase) Allergy Intermediate swelling Verified 04/23/24 09:03 of lips meperidine (From DEMEROL) Allergy Mild Flushing Verified 04/23/24 09:03 morphine (MORPHINE) Allergy Mild Hives Verified 04/23/24 09:03 Penicillins Allergy Swelling Verified 04/23/24 09:03 of Lip/Tongue/Throat Worker's Comp Is this a Worker's Comp case?: No [facility] Disclaimer: The information contained in this section may have been updated after the patient was seen, as this information can be updated by other users. Medical History (Updated 05/12/24 @ 12:14 by Michael Recinos APRN) Duodenal ulcer Diastolic dysfunction Hyperlipidemia Sinus tachycardia Dizziness Abnormal electrocardiogram [ECG] [EKG] Vitamin D deficiency (~11/27/17) Actinic keratoses Hypoglycemia Psoriasiform eczema Anxiety Labyrinthitis Surgical History H/O: hysterectomy History of back surgery Family History Other Family history of stroke Social History (Updated 04/23/24 @ 08:58 by Delia Mitchell RN) Smoking Status: Never smoker alcohol intake: never substance use type: denies use current occupational status: other household members: spouse housing: house caffeine: No ROS Obtained: Yes All systems reviewed & no additional complaints except as documented Constitutional Constitutional: Reports chills, Denies fever(s) and Reports poor appetite Eyes Eyes: Denies eye discharge ENT Ears, Nose, Mouth, and Throat: Denies ear discharge, Reports otalgia, Denies hearing loss, Denies sinus pain and Reports sore throat Cardiovascular Cardiovascular: Denies chest pain and Denies dyspnea Respiratory Respiratory: Denies chest congestion, Reports cough and Denies dyspnea Gastrointestinal Gastrointestingal: Denies abdominal pain, diarrhea, nausea or vomiting Musculoskeletal Musculoskeletal: Denies arthralgias Integumentary/Breasts Skin/Breast: Denies rash Physical Exam General General appearance: alert and in no apparent distress Head Head exam: atraumatic, normocephalic and normal inspection Eye Eye exam: Present normal appearance; Absent PERRL or EOMI ENT ENT exam: Present mucous membranes moist and normal external ear exam Expanded ENT Exam TM/Canal exam: Bilateral TM: erythema, bulging and effusion Nose exam: Absent sinus tenderness Nasal speculum exam: Bilateral: normal Mouth exam: Present normal external inspection and other; Absent drooling Teeth exam: Present normal inspection Throat exam: Present tonsillar erythema and tonsillomegaly Neck Neck exam: Present normal inspection, full ROM and trachea midline; Absent tenderness, meningismus or lymphadenopathy Chest Chest inspection: Present normal inspection and symmetric chest wall rise; Absent tenderness Respiratory Respiratory exam: Present normal lung sounds bilaterally; Absent respiratory distress, wheezes or stridor Cardiovascular Cardiovascular exam: Present regular rate, normal rhythm and normal heart sounds; Absent tachycardia or irregular rhythm Abdominal Exam Abdominal exam: Present soft and normal bowel sounds; Absent distention, tenderness, guarding, rebound or rigidity Extremities Exam Extremities exam: Present normal inspection and normal capillary refill; Absent tenderness, joint swelling or calf tenderness Back Exam Back exam: Present normal inspection and full ROM; Absent tenderness, CVA tenderness (R) or CVA tenderness (L) Neurological Exam Neurological exam: Present alert, oriented X3, CN II-XII intact, normal gait and reflexes normal; Absent motor sensory deficit Psychiatric Psychiatric exam: Present normal affect and normal mood Skin Skin exam: Present warm, dry, intact and normal color Lymphatic Lymphatic Findings: no adenopathy Medical Decision Making Medical Records Medical records reviewed: No I reviewed the patient's medical records. Screening: Per USPSTF and CDC recommendations, given the prevalence of disease in our region, it is our hospital?s policy to screen for HIV and viral Hepatitis for all patients aged 18 and over and those with ongoing risk factors. Kt Inquiry Pt receiving controlled substance: No Vital Signs: 05/12/24 11:12 Temperature 98.0 F Temperature Source Oral Pulse Rate [Left Radial] 90 Respiratory Rate 20 Blood Pressure [Left Arm] 180/91 H Blood Pressure Mean [Left Arm] 120 02 Sat by Pulse Oximetry 96 Lab Data Lab results reviewed: Yes I reviewed the patient's lab results.
[2024-05-12 12:17] VITALS: BP 180/91; PULSE 90; RESP 20; TEMP 36.7
== END 2024-05-12 12:17 | disposition home or self-care (01) ==
PROVIDERS: Emergency Provider Nurse Practitioner Family; PCP Family Medicine
DX: H66.93 Otitis media, unspecified, bilateral (principal); H92.03 Otalgia, bilateral; R11.0 Nausea; R42 Dizziness and giddiness; R63.8 Other symptoms and signs concerning food and fluid intake; R68.83 Chills (without fever)
CPT/HCPCS: 99212; G0381

== ENCOUNTER 2024-07-07 14:38 | Emergency (ER) | payer BC, SELFPAY ==
[2024-07-07 14:39] VITALS: BP 150/93; PULSE 96; RESP 20; TEMP 36.6; O2SAT 97; BMI 51.1
--- NOTE | 2024-07-07 14:46 | PC.NURSE ---
Blood glucose measured at 120.
--- NOTE | 2024-07-07 14:52 | XR_ITS ---
PROCEDURE INFORMATION: Exam: XR Chest Exam date and time: 07/07/2024 2:53 PM Age: 64 years old Clinical indication: Pain; Other: Ribs; Additional info: Rib pain TECHNIQUE: Imaging protocol: Radiologic exam of the chest. Views: 2 views. COMPARISON: CR XR CHEST PORTABLE 02/06/2024 11:37 AM FINDINGS: Lungs: Unremarkable. No consolidation. Pleural spaces: Unremarkable. No pleural effusion. No pneumothorax. Heart/Mediastinum: Unremarkable. No cardiomegaly. Bones/joints: Unremarkable. IMPRESSION: No acute findings.
--- NOTE | 2024-07-07 14:55 | ECG_ITS ---
APPROVED REPORT Exam: Resting ECG HR:94 bpm ECG Measurements Heart Rate 94 AXES IA 167 P 52 QRSd 88 QRS 73 QT 346 T 56 QTc 398 Conclusion SINUS RHYTHM MINIMAL ST DEPRESSION [0.025+ mV ST DEPRESSION] BORDERLINE ECG Electronically signed by : KATHERYN ROSARIO, 07/08/2024 22:07:33
[2024-07-07 15:07] LABS: Coronavirus 19, PCR Not Detected (NotDetected); Influenza A, PCR Not Detected (NotDetected); Influenza B, PCR Not Detected (NotDetected)
[2024-07-07 15:09] VITALS: PULSE 96
[2024-07-07 15:11] LABS: Basophils # 0.1 K/mm3 (0-0.2); Basophils % 0.7 % (0.1-2.0); Eosinophils # 0.1 K/mm3 (0.0-0.4); Eosinophils % 1.9 % (0.1-12.0); Hematocrit 46.6 % (37.0-47.0); Hemoglobin 14.8 g/dL (12.2-16.2); Lymphocytes % 43.8 % (10-50); Mean Corpuscular HGB Conc 31.8 g/dL (31.8-35.4); Mean Corpuscular Hemoglobin 28.4 pg (27.0-31.2); Mean Corpuscular Volume 89.4 fl (81-99); Mean Platelet Volume 11.3 fl (7.4-10.4); Monocytes # 0.5 K/mm3 (0.1-1.0); Monocytes % 6.9 % (1.7-9.3); Neutrophils # 3.2 K/mm3 (1.8-7.8); Neutrophils % 46.6 % (37.0-80.0); Platelet Count 201 K/mm3 (142-424); Red Blood Count 5.21 M/mm3 (4.20-5.40); Red Cell Distribution Width 13.5 % (11.5-17.5); White Blood Count 6.8 K/mm3 (4.8-10.8)
--- NOTE | 2024-07-07 15:11 | HMH.EDGENADL ---
Discharge Plan Disposition Patient Disposition: Home, Self-Care Condition: Good Prescriptions Prescriptions: No Action lovastatin 20 mg tablet 20 mg PO DAILY Patient Comments: TAKE 1 TABLET BY MOUTH DAILY WITH THE EVENING MEAL bisoprolol fumarate 5 mg tablet 2.5 mg PO DAILY Qty: 90 1RF diltiazem HCl 120 mg tablet 60 mg PO QHS methylprednisolone 4 mg Tablets,Dose Pack 4 mg PO DIRECTED 6 Days Qty: 21 0RF Rx Instructions: Take 1 pack as directed for 6 days cefdinir 300 mg capsule 300 mg PO BID Qty: 20 0RF Referrals Follow up/Referrals: Moises Escobar MD [Primary Care Provider] - See instructions Activity Restrictions/Add. Instructions Additional Instructions/Restrictions: Increase fluids and rest. Please follow-up with Dr. Escobar as we discussed return to emergency department with any further problems Clinical Impressions Clinical Impression: Nausea, Vertigo Instructions Patient Instructions: DI for Vertigo, DI for Nausea -- Adult Print Language Print Language: Slovak Discharge ED Provider: Didier Stoll General Adult HPI <Lety Arriaza (ED), PATTERN FILER - Last Filed: 07/07/24 17:32> General Chief complaint: Weakness Stated complaint: feeling like pass out, cold feeling over body Time Seen by Provider: 07/07/24 14:50 Mode of Arrival: Ambulatory Source of Information: Patient and Spouse Limitations: No Limitations Description of Symptoms (Recalled from ER Triage Doc. by RN): pt states she felt cold and weaky and shaky at home today at 1430 History of Present Illness HPI narrative: This is a 64-year-old female who presents to the ED today for complaint of sense of cold came over her while she was crocheting today. She felt like she was shaking, her heart was going fast, headache and jaw pain. She had nausea and diarrhea. She did take Zofran but it did not help. She says this feeling happened on as well. She has a history of PACs and sees Dr. Phillips. She denies chest pain or shortness of breath. No abdominal pain. Related Data Home Medications ?Medication ?Instructions ?Recorded ?Confirmed diltiazem HCl 120 mg tablet 60 mg PO QHS Hypertension 07/05/22 05/12/24 lovastatin 20 mg tablet 20 mg PO DAILY 11/28/23 05/12/24 Previous Rx's ?Medication ?Instructions ?Recorded cefdinir 300 mg capsule 300 mg PO BID #20 caps 05/12/24 methylprednisolone 4 mg tablets in 4 mg PO DIRECTED 6 days #21 tabs 05/12/24 a dose pack bisoprolol fumarate 5 mg tablet 2.5 mg (1/2 x 5 mg) PO DAILY 06/24/24 Hypertension #90 tabs Allergies Allergy/AdvReac Type Severity Reaction Status Date / Time amoxicillin Allergy Intermediate Hives Verified 04/23/24 09:03 fluticasone (From Flonase) Allergy Intermediate swelling Verified 04/23/24 09:03 of lips meperidine (From DEMEROL) Allergy Mild Flushing Verified 04/23/24 09:03 morphine (MORPHINE) Allergy Mild Hives Verified 04/23/24 09:03 Penicillins Allergy Swelling Verified 04/23/24 09:03 of Lip/Tongue/Throat [facility] <Lety Arriaza (ED), PATTERN FILER - Last Filed: 07/07/24 17:32> [facility] Disclaimer: The information contained in this section may have been updated after the patient was seen, as this information can be updated by other users. Medical History (Updated 07/07/24 @ 16:28 by Lety Arriaza (ED), PATTERN FILER) Duodenal ulcer Diastolic dysfunction Hyperlipidemia Sinus tachycardia Dizziness Abnormal electrocardiogram [ECG] [EKG] Vitamin D deficiency (~11/27/17) Actinic keratoses Hypoglycemia Psoriasiform eczema Anxiety Labyrinthitis Surgical History H/O: hysterectomy History of back surgery Family History Other Family history of stroke Social History (Updated 04/23/24 @ 08:58 by Delia Mitchell RN) Smoking Status: Never smoker alcohol intake: never substance use type: denies use current occupational status: other Travel in the last 8 weeks: None household members: spouse housing: house caffeine: No Have you lived/traveled outside US in past 30 days?: No Contact w/someone who lives/traveled outside US past 30 days?: No Exposure to someone with infectious disease in past 14 days?: No Do you have a fever (greater than 100.4 F or 38 C)?: No Have you tested positive for COVID-19: No Exposed to someone with COVID-19 in past 14 days?: No Do you have a sore throat?: No Do you have a cough?: No Do you have any weakness?: Yes Do you have any diarrhea?: No Are you experiencing any unusual bleeding?: No Do you have any muscle aches/pain?: No Do you have any abdominal pain?: No Are you experiencing loss of taste or smell?: No Other Medical History Have you received the Flu Vaccine for this season: No Have you received the Pneumonia Vaccine: No <Lety Arriaza (ED), PATTERN FILER - Last Filed: 07/07/24 17:32> ROS Obtained: Yes Systems reviewed as appropriate & no additional complaints except as documented Constitutional Constitutional: Reports as per HPI Physical Exam <Lety Arriaza (ED), PATTERN FILER - Last Filed: 07/07/24 17:32> General General appearance: alert and in no apparent distress Head Head exam: atraumatic and normocephalic Eye Eye exam: Present normal appearance, PERRL and EOMI ENT ENT exam: Present normal oropharynx, mucous membranes moist and other (Both TMs with fluid present ) Neck Neck exam: Present normal inspection, full ROM and trachea midline Respiratory Respiratory exam: Present normal lung sounds bilaterally Cardiovascular Cardiovascular exam: Present regular rate, normal rhythm, normal heart sounds, +S1 and +S2 Abdominal Exam Abdominal exam: Present soft and normal bowel sounds Extremities Exam Extremities exam: Present normal inspection, full ROM and normal capillary refill Neurological Exam Neurological exam: Present alert, oriented X3 and normal gait Skin Skin exam: Present warm, dry and intact Medical Decision Making <Lety Arriaza (ED), PATTERN FILER - Last Filed: 07/07/24 17:32> Medical Records Screening: Per USPSTF and CDC recommendations, given the prevalence of disease in our region, it is our hospital?s policy to screen for HIV and viral Hepatitis for all patients aged 18 and over and those with ongoing risk factors. Kt Inquiry Pt receiving controlled substance: No Kt was queried for this patient: No Vital Signs: 07/07/24 14:39 07/07/24 15:09 07/07/24 16:34 Temperature 97.8 F 98.2 F Temperature Source Oral Pulse Rate 79 Pulse Rate [Left Radial] 96 H 96 H Respiratory Rate 20 20 Blood Pressure 182/87 H Blood Pressure [Right Arm] 150/93 H Blood Pressure Mean [Right Arm] 112 02 Sat by Pulse Oximetry 97 Oxygen Delivery Method Room Air Room Air Lab Data Lab Results 07/07/24 14:45: SARS-CoV-2 (PCR) Not detected, Influenza A Untype (PCR) Not detected, Influenza Type B (PCR) Not detected 07/07/24 15:01: WBC 6.8, RBC 5.21, Hgb 14.8, Hct 46.6, MCV 89.4, MCH 28.4, MCHC 31.8, RDW 13.5, Plt Count 201, MPV 11.3 H, Neut % (Auto) 46.6, Lymph % (Auto) 43.8, Kershaw % (Auto) 6.9, Eos % (Auto) 1.9, Baso % (Auto) 0.7, Neut # (Auto) 3.2, Lymph # (Auto) 3.0, Kershaw # (Auto) 0.5, Eos # (Auto) 0.1, Baso # (Auto) 0.1, Sodium 143, Potassium 3.8, Chloride 106, Carbon Dioxide 26, Anion Gap 14.8, BUN 17, Creatinine 0.90, Estimated Creat Clear 50, Estimated GFR 63, Est GFR ( Amer) 77, Glucose 143 H, Calcium 9.6, Magnesium 2.0, Total Bilirubin 0.4, AST 58 H, ALT 59, Alkaline Phosphatase 80, Troponin I < 0.01, Total Protein 7.7, Albumin 4.6, Globulin 3.1, Albumin/Globulin Ratio 1.5, Lipase 118 07/07/24 15:01 07/07/24 15:01 Orders (Tests/Meds): ED MEDICATIONS Discontinued Medications Generic Name Dose Route Start Last Admin Trade Name Freq PRN Reason Stop Dose Admin Ondansetron HCl 4 mg 07/07/24 16:25 07/07/24 16:30 Ondansetron 4mg/2ml Vial IV 07/07/24 16:26 4 mg ONCE ONE Administration ORDERS Category Date Time Status Chest XR 2 view (NOT portable) [XR chest 2V] Stat Exams 07/07/24 14:52 Completed CBC [Complete Blood Count Auto Diff] Stat Lab 07/07/24 15:01 Completed Comprehensive Metabolic Panel Stat Lab 07/07/24 15:01 Completed Lipase Stat Lab 07/07/24 15:01 Completed Magnesium Stat Lab 07/07/24 15:01 Completed Rapid PCR Covid and Flu A/B Stat Lab 07/07/24 14:45 Completed Trop I [Troponin I] Stat Lab 07/07/24 15:01 Completed Medical Decision Narrative: Insert review patient is a 64-year-old female presenting to the emergency department for evaluation of episode of cold sweats, jaw pain, nausea that happened while she was knitting. Patient is hemodynamically stable and nontoxic-appearing upon arrival, afebrile. Differential diagnosis includes CAD, flu, hypertension among others. Workup will be conducted with [hematologic labs, specific imaging. Initial inventions include Zofran, troponin. Initial workup reviewed by me labs were unremarkable, EKG with no ischemia. Imaging informally interpreted by me and remarkable for nothing acute. Formal imaging please see radiology report. Upon repeat evaluation patient's pain is improved. <Elian Cisneros MD - Last Filed: 07/13/24 07:15> Vital Signs: 07/07/24 14:39 07/07/24 15:09 07/07/24 16:34 Temperature 97.8 F 98.2 F Temperature Source Oral Pulse Rate 79 Pulse Rate [Left Radial] 96 H 96 H Respiratory Rate 20 20 Blood Pressure 182/87 H Blood Pressure [Right Arm] 150/93 H Blood Pressure Mean [Right Arm] 112 02 Sat by Pulse Oximetry 97 Oxygen Delivery Method Room Air Room Air Lab Data Lab Results 07/07/24 14:45: SARS-CoV-2 (PCR) Not detected, Influenza A Untype (PCR) Not detected, Influenza Type B (PCR) Not detected 07/07/24 15:01: WBC 6.8, RBC 5.21, Hgb 14.8, Hct 46.6, MCV 89.4, MCH 28.4, MCHC 31.8, RDW 13.5, Plt Count 201, MPV 11.3 H, Neut % (Auto) 46.6, Lymph % (Auto) 43.8, Kershaw % (Auto) 6.9, Eos % (Auto) 1.9, Baso % (Auto) 0.7, Neut # (Auto) 3.2, Lymph # (Auto) 3.0, Kershaw # (Auto) 0.5, Eos # (Auto) 0.1, Baso # (Auto) 0.1, Sodium 143, Potassium 3.8, Chloride 106, Carbon Dioxide 26, Anion Gap 14.8, BUN 17, Creatinine 0.90, Estimated Creat Clear 50, Estimated GFR 63, Est GFR ( Amer) 77, Glucose 143 H, Calcium 9.6, Magnesium 2.0, Total Bilirubin 0.4, AST 58 H, ALT 59, Alkaline Phosphatase 80, Troponin I < 0.01, Total Protein 7.7, Albumin 4.6, Globulin 3.1, Albumin/Globulin Ratio 1.5, Lipase 118 Orders (Tests/Meds): ED MEDICATIONS Discontinued Medications Generic Name Dose Route Start Last Admin Trade Name Freq PRN Reason Stop Dose Admin Ondansetron HCl 4 mg 07/07/24 16:25 07/07/24 16:30 Ondansetron 4mg/2ml Vial IV 07/07/24 16:26 4 mg ONCE ONE Administration ORDERS Category Date Time Status Chest XR 2 view (NOT portable) [XR chest 2V] Stat Exams 07/07/24 14:52 Completed CBC [Complete Blood Count Auto Diff] Stat Lab 07/07/24 15:01 Completed Comprehensive Metabolic Panel Stat Lab 07/07/24 15:01 Completed Lipase Stat Lab 07/07/24 15:01 Completed Magnesium Stat Lab 07/07/24 15:01 Completed Rapid PCR Covid and Flu A/B Stat Lab 07/07/24 14:45 Completed Trop I [Troponin I] Stat Lab 07/07/24 15:01 Completed Medical Decision Narrative: Insert review patient is a 64-year-old female presenting to the emergency department for evaluation of episode of cold sweats, jaw pain, nausea that happened while she was knitting. Patient is hemodynamically stable and nontoxic-appearing upon arrival, afebrile. Differential diagnosis includes CAD, flu, hypertension among others. Workup will be conducted with [hematologic labs, specific imaging. Initial inventions include Zofran, troponin. Initial workup reviewed by me labs were unremarkable, EKG with no ischemia. Imaging informally interpreted by me and remarkable for nothing acute. Formal imaging please see radiology report. Upon repeat evaluation patient's pain is improved. I was consulted by the BARTOLO, and we discussed the complexity of the problems being addressed. I approved the treatment and management plan for this patient's care in the Emergency Department, thus performing a substantive portion of the medical decision making. Elian Cisneros MD Critical Care <Lety Arriaza (ED), PATTERN FILER - Last Filed: 07/07/24 17:32> Critical Care Time Critical Care Time: No
[2024-07-07 15:18] LABS: Albumin Level 4.6 g/dl (3.5-5.0); Chloride 106 mmol/L (98-107); Potassium 3.8 mmoL/L (3.5-5.1); Sodium 143 mmol/L (136-145)
[2024-07-07 15:21] LABS: Alanine Aminotransferase 59 U/L (12-78); Albumin/Globulin Ratio 1.5 (1.1-1.8); Alkaline Phosphatase 80 U/L (38-126); Anion Gap 14.8 mEq/L (5-15); Aspartate Amino Transferase 58 U/L (14-36); Bilirubin,Total 0.4 mg/dl (0.2-1.3); Blood Urea Nitrogen 17 mg/dl (7-17); Carbon Dioxide 26 mmol/L (22.0-30.0); Creatinine Clearance Estimated 50 mL/min (50-200); Estimated Glomerular Filt Rate 63 ml/min (>60); GFR (African American) 77 ML/MIN (>60); Globulin 3.1 g/dL (1.3-3.2); Lipase 118 U/L (23-300); Total Protein,Serum 7.7 g/dl (6.3-8.2)
[2024-07-07 15:22] LABS: Calcium 9.6 mg/dl (8.4-10.2); Glucose 143 mg/dl (74-100)
[2024-07-07 15:34] LABS: Troponin I < 0.01 ng/ml (0.00-0.034)
[2024-07-07] MEDS: ONDANSETRON 4MG/2ML VIAL 4 MG IV (16:30)
[2024-07-07 16:34] VITALS: BP 182/87; PULSE 79; RESP 20; TEMP 36.8; O2SAT 95
== END 2024-07-07 16:35 | disposition home or self-care (01) ==
PROVIDERS: Nurse Practitioner; Emergency Provider Emergency Medicine; PCP Family Medicine
DX: R11.0 Nausea (principal); R42 Dizziness and giddiness; R68.84 Jaw pain; R53.1 Weakness; R25.9 Unspecified abnormal involuntary movements; R00.0 Tachycardia, unspecified; R51.9 Headache, unspecified; R19.7 Diarrhea, unspecified; R61 Generalized hyperhidrosis
CPT/HCPCS: 71046; 80053; 83690; 83735; 84484; 85025; 87636; 93005; 96374; 99284; J2405

== ENCOUNTER 2024-08-12 08:47 | Emergency (ER) | payer BC, SELFPAY ==
[2024-08-12] VITALS (12 sets, daily range): BP systolic 148–178; BP diastolic 75–91; PULSE 67–83; RESP 16–22; TEMP 36.6–36.7; O2SAT 91–99; BMI 53.1
--- NOTE | 2024-08-12 09:15 | ECG_ITS ---
APPROVED REPORT Exam: Resting ECG HR:81 bpm ECG Measurements Heart Rate 81 AXES SC 176 P 37 QRSd 86 QRS 59 QT 370 T 74 QTc 408 Conclusion SINUS RHYTHM POSSIBLE RIGHT VENTRICULAR CONDUCTION DELAY [RSR (QR) IN V1/V2] BORDERLINE ECG UNCONFIRMED REPORT Electronically signed by : Michael Rosen, 08/12/2024 15:34:49
--- NOTE | 2024-08-12 10:02 | XR_ITS ---
FINAL REPORT CLINICAL HISTORY: PALPITATIONS COMPARISON: 02/06/2024 FINDINGS: A single portable view of the chest was obtained. No acute pulmonary opacity is present. There is no evidence of effusion or pneumothorax. Mediastinum is unremarkable. Heart size is normal. IMPRESSION: No acute abnormality. Reviewed, Interpreted and Dictated by Roscoe De Santiago MD Transcribed by Tram Rubalcava Authenticated and [facility]
--- NOTE | 2024-08-12 10:07 | PC.NURSE ---
DR MELLO AT BEDSIDE
--- NOTE | 2024-08-12 10:12 | HMH.EDGENADL ---
Discharge Plan Disposition Patient Disposition: Home, Self-Care Prescriptions Prescriptions: No Action lovastatin 20 mg tablet 20 mg PO DAILY Patient Comments: TAKE 1 TABLET BY MOUTH DAILY WITH THE EVENING MEAL diazepam [Valium] 2 mg tablet 2 mg PO BID PRN bisoprolol fumarate 5 mg tablet 2.5 mg PO DAILY Qty: 90 1RF diltiazem HCl 120 mg tablet 60 mg PO QHS Referrals Follow up/Referrals: Moises Escobar MD [Primary Care Provider] - See instructions Ronny Phillips MD [Staff Physician] - See instructions Clinical Impressions Clinical Impression: Heart palpitations Print Language Print Language: Iraqi Discharge ED Provider: Annalisa Rosen General Adult HPI General Chief complaint: Arrhythmia/Palpitations Stated complaint: heart palpitations nausea dizziness Time Seen by Provider: 08/12/24 09:28 Mode of Arrival: Ambulatory Source of Information: Patient Description of Symptoms (Recalled from ER Triage Doc. by RN): PT REPORTS HEART PALPITATIONS THAT STARTED ABOUT 0630 THIS AM. REPORTS REFLUX OR GAS LIKE PAIN. REPORTS CHEST PAIN UNDER LEFT BREAST LAST NIGHT, WORSE WITH MOVEMENT. RESOLVED AT THIS TIME. History of Present Illness HPI narrative: 64-year-old female presents today with heart palpitations as a chief complaint. Denies any significant chest pain has had some nausea but also has chronic vertiginous symptoms which she states are at her baseline. Denies any other symptoms preceding this today. She has had intermittent symptoms like this in the past actually wore a monitor for extended period time near month and is followed by shockable without any diagnosis in the past. This was done within the last 12 months. She does not have a pacemaker defibrillator etc. Related Data Home Medications ?Medication ?Instructions ?Recorded ?Confirmed diltiazem HCl 120 mg tablet 60 mg PO QHS Hypertension 07/05/22 07/24/24 lovastatin 20 mg tablet 20 mg PO DAILY 11/28/23 07/24/24 diazepam 2 mg tablet (Valium) 2 mg PO BID PRN 07/24/24 07/24/24 Previous Rx's ?Medication ?Instructions ?Recorded bisoprolol fumarate 5 mg tablet 2.5 mg (1/2 x 5 mg) PO DAILY 06/24/24 Hypertension #90 tabs Allergies Allergy/AdvReac Type Severity Reaction Status Date / Time amoxicillin Allergy Intermediate Hives Verified 07/24/24 09:43 fluticasone (From Flonase) Allergy Intermediate swelling Verified 07/24/24 09:43 of lips meperidine (From DEMEROL) Allergy Mild Flushing Verified 07/24/24 09:43 morphine (MORPHINE) Allergy Mild Hives Verified 07/24/24 09:43 Penicillins Allergy Swelling Verified 07/24/24 09:43 of Lip/Tongue/Throat PFSH [facility] Disclaimer: The information contained in this section may have been updated after the patient was seen, as this information can be updated by other users. Medical History (Updated 08/12/24 @ 10:12 by Annalisa Rosen MD) Hypertension Duodenal ulcer Diastolic dysfunction Hyperlipidemia Sinus tachycardia Dizziness Abnormal electrocardiogram [ECG] [EKG] Vitamin D deficiency (~11/27/17) Actinic keratoses Hypoglycemia Psoriasiform eczema Anxiety Labyrinthitis Surgical History H/O: hysterectomy History of back surgery Family History Other Family history of stroke Social History (Updated 08/12/24 @ 10:00 by Conchita Chamorro RN) Smoking Status: Never smoker alcohol intake: never substance use type: denies use current occupational status: other Travel in the last 8 weeks: None household members: spouse housing: house caffeine: No Have you lived/traveled outside US in past 30 days?: No Contact w/someone who lives/traveled outside US past 30 days?: No Exposure to someone with infectious disease in past 14 days?: No Do you have a fever (greater than 100.4 F or 38 C)?: No Have you tested positive for COVID-19: No Exposed to someone with COVID-19 in past 14 days?: No Do you have a sore throat?: No Do you have a cough?: No Do you have any weakness?: No Do you have any diarrhea?: No Are you experiencing any unusual bleeding?: No Do you have any muscle aches/pain?: No Do you have any abdominal pain?: No Are you experiencing loss of taste or smell?: No Other Medical History Have you received the Flu Vaccine for this season: No Have you received the Pneumonia Vaccine: No ROS Obtained: Yes All systems reviewed & no additional complaints except as documented Physical Exam General General appearance: alert and in no apparent distress Respiratory Respiratory exam: Present normal lung sounds bilaterally Cardiovascular Cardiovascular exam: Present regular rate; Absent normal rhythm Abdominal Exam Abdominal exam: Present soft and distention Neurological Exam Neurological exam: Present alert Medical Decision Making Medical Records Screening: Per USPSTF and CDC recommendations, given the prevalence of disease in our region, it is our hospital?s policy to screen for HIV and viral Hepatitis for all patients aged 18 and over and those with ongoing risk factors. Kt Inquiry Pt receiving controlled substance: No Vital Signs: 08/12/24 08:48 08/12/24 09:13 08/12/24 09:31 Temperature 98.0 F Temperature Source Oral Pulse Rate 83 74 Pulse Rate [Apical] 80 Respiratory Rate 18 16 17 Blood Pressure 175/85 H 174/90 H Blood Pressure [Right Arm] 175/85 H Blood Pressure Mean 116 110 Blood Pressure Mean [Right Arm] 115 Blood Pressure Source [Right Arm] Automatic Cuff Blood Pressure Position [Right Arm] Sitting 02 Sat by Pulse Oximetry 99 97 95 Oxygen Delivery Method Room Air 08/12/24 10:01 08/12/24 10:31 08/12/24 11:01 Temperature Temperature Source Pulse Rate 69 71 71 Pulse Rate [Apical] Respiratory Rate 21 21 19 Blood Pressure 178/76 H 161/91 H 177/86 H Blood Pressure [Right Arm] Blood Pressure Mean 110 106 116 Blood Pressure Mean [Right Arm] Blood Pressure Source [Right Arm] Blood Pressure Position [Right Arm] 02 Sat by Pulse Oximetry 95 92 L 93 L Oxygen Delivery Method 08/12/24 11:31 08/12/24 12:01 08/12/24 12:31 Temperature Temperature Source Pulse Rate 73 70 68 Pulse Rate [Apical] Respiratory Rate 18 17 16 Blood Pressure 166/91 H 159/79 H 148/75 H Blood Pressure [Right Arm] Blood Pressure Mean 116 105 99 Blood Pressure Mean [Right Arm] Blood Pressure Source [Right Arm] Blood Pressure Position [Right Arm] 02 Sat by Pulse Oximetry 93 L 94 L 91 L Oxygen Delivery Method Lab Data Lab results reviewed: Yes I reviewed the patient's lab results. Lab Results 08/12/24 09:50: WBC 5.1, RBC 5.05, Hgb 14.5, Hct 45.4, MCV 89.9, MCH 28.7, MCHC 31.9, RDW 13.6, Plt Count 159, MPV 11.5 H, Neut % (Auto) 52.2, Lymph % (Auto) 38.1, [place] % (Auto) 6.3, Eos % (Auto) 2.6, Baso % (Auto) 0.6, Neut # (Auto) 2.6, Lymph # (Auto) 1.9, [place] # (Auto) 0.3, Eos # (Auto) 0.1, Baso # (Auto) 0.0, Sodium 143, Potassium 4.2, Chloride 110 H, Carbon Dioxide 26, Anion Gap 11.2, BUN 15, Creatinine 0.80, Estimated Creat Clear 48, Estimated GFR 72, Est GFR ( Amer) 88, Glucose 161 H, Calcium 9.6, Magnesium 1.9, Total Bilirubin 0.5, AST 40 H, ALT 43, Alkaline Phosphatase 71, Troponin I < 0.01, Total Protein 7.5, Albumin 4.5, Globulin 3.0, Albumin/Globulin Ratio 1.5, TSH 3.87, Thyroxine (T4) 8.6 08/12/24 09:50 08/12/24 09:50 Orders (Tests/Meds): ED MEDICATIONS Discontinued Medications Generic Name Dose Route Start Last Admin Trade Name Freq PRN Reason Stop Dose Admin Ondansetron HCl 4 mg 08/12/24 10:12 08/12/24 10:19 Ondansetron 4mg/2ml Vial IV 08/12/24 10:13 4 mg ONCE ONE Administration ORDERS Category Date Time Status XR chest portable Stat Exams 08/12/24 10:02 Completed Complete Blood Count Auto Diff Stat Lab 08/12/24 09:50 Completed Comprehensive Metabolic Panel Stat Lab 08/12/24 09:50 Completed Magnesium Stat Lab 08/12/24 09:50 Completed T4 (Thyroxine) Stat Lab 08/12/24 09:50 Completed Thyroid Stimulating Hormone Stat Lab 08/12/24 09:50 Completed Troponin I Q3H Lab 08/12/24 13:15 Ordered Troponin I Q3H Lab 08/12/24 16:15 Ordered Troponin I Stat Lab 08/12/24 09:50 Completed ECG Data Tracing #1: I reviewed this ECG and interpreted as documented below: Ventricular rate 81 normal sinus rhythm no acute ischemic changes noted normal conduction and normal axis Medical Decision Narrative: 64-year-old presenting today with a normal EKG normal electrical conduction on the monitor at the moment but she is also asymptomatic with history of recent palpitations. She has extensively been worked up in the past including a prolonged event monitor it sounds like with Dr. Phillips. Without a definitive diagnosis. Differential includes electrolyte abnormalities thyroid dysfunction etc. [place] is unlikely as she has had no ischemic symptoms from historical standpoint but is on the differential. Single troponin will be adequate. Reassessment 1:38 PM patient feeling much better and has been essentially asymptomatic while in the emergency department labs are unremarkable. Patient stable for outpatient follow-up with Dr. Phillips to further discuss possible arrhythmias. Of note patient states that she was given a diagnosis in the past was diagnosed with premature atrial contractions which may be what been going on today but she has been asymptomatic we have not captured anything electronically today. Critical Care Critical Care Time Critical Care Time: No
--- NOTE | 2024-08-12 10:12 | PC.NURSE ---
XR AT BEDSIDE
[2024-08-12 10:16] LABS: Albumin Level 4.5 g/dl (3.5-5.0); Basophils % 0.6 % (0.1-2.0); Chloride 110 mmol/L (98-107); Eosinophils # 0.1 K/mm3 (0.0-0.4); Eosinophils % 2.6 % (0.1-12.0); Hematocrit 45.4 % (37.0-47.0); Hemoglobin 14.5 g/dL (12.2-16.2); Lymphocytes # 1.9 K/mm3 (0.7-4.5); Lymphocytes % 38.1 % (10-50); Mean Corpuscular HGB Conc 31.9 g/dL (31.8-35.4); Mean Corpuscular Hemoglobin 28.7 pg (27.0-31.2); Mean Corpuscular Volume 89.9 fl (81-99); Mean Platelet Volume 11.5 fl (7.4-10.4); Monocytes # 0.3 K/mm3 (0.1-1.0); Monocytes % 6.3 % (1.7-9.3); Neutrophils # 2.6 K/mm3 (1.8-7.8); Neutrophils % 52.2 % (37.0-80.0); Platelet Count 159 K/mm3 (142-424); Red Blood Count 5.05 M/mm3 (4.20-5.40); Red Cell Distribution Width 13.6 % (11.5-17.5); Sodium 143 mmol/L (136-145); White Blood Count 5.1 K/mm3 (4.8-10.8)
[2024-08-12 10:17] LABS: Potassium 4.2 mmoL/L (3.5-5.1)
[2024-08-12 10:19] LABS: Alanine Aminotransferase 43 U/L (12-78); Albumin/Globulin Ratio 1.5 (1.1-1.8); Anion Gap 11.2 mEq/L (5-15); Aspartate Amino Transferase 40 U/L (14-36); Blood Urea Nitrogen 15 mg/dl (7-17); Carbon Dioxide 26 mmol/L (22.0-30.0); Creatinine Clearance Estimated 48 mL/min (50-200); Estimated Glomerular Filt Rate 72 ml/min (>60); GFR (African American) 88 ML/MIN (>60); Total Protein,Serum 7.5 g/dl (6.3-8.2)
[2024-08-12] MEDS: ONDANSETRON 4MG/2ML VIAL 4 MG IV (10:19)
[2024-08-12 10:20] LABS: Alkaline Phosphatase 71 U/L (38-126); Bilirubin,Total 0.5 mg/dl (0.2-1.3); Calcium 9.6 mg/dl (8.4-10.2); Glucose 161 mg/dl (74-100); Magnesium 1.9 mg/dl (1.6-2.3)
[2024-08-12 10:33] LABS: Troponin I < 0.01 ng/ml (0.00-0.034)
[2024-08-12 10:38] LABS: T4 (Thyroxine) 8.6 ug/dl (5.53-11.0)
[2024-08-12 10:51] LABS: Thyroid Stimulating Hormone 3.87 uIU/mL (0.465-4.68)
--- NOTE | 2024-08-12 13:38 | PC.NURSE ---
DR MELLO AT BEDSIDE TO REEVALUATE PT
[2024-08-12 14:15] LABS: Troponin I < 0.01 ng/ml (0.00-0.034)
== END 2024-08-12 13:47 | disposition home or self-care (01) ==
PROVIDERS: Emergency Provider Student in an Organized Health Care Education/Training Program; PCP Family Medicine
DX: R00.2 Palpitations (principal); R07.89 Other chest pain; R11.0 Nausea; R42 Dizziness and giddiness; K21.9 Gastro-esophageal reflux disease without esophagitis
CPT/HCPCS: 71045; 80053; 83735; 84436; 84443; 84484; 85025; 93005; 96374; 99284; J2405

== ENCOUNTER 2024-11-29 08:29 | Outpatient (CLI) | payer BC, SELFPAY ==
--- OUTSIDE RECORDS SUMMARY | 2024-07-17 09:15 | XMS_ITS ---
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 02/2013, Chest Pain- [facility] 07/25/2013, [place] Palsy- [facility] 03/15/2018, Back Pain- [facility] ER 06/09-, Hypoglycemia- [facility] UTC 07/05/2018, Heart Palpitations- [facility] 11/27/2019, Heart Palpitations - [facility] 04/27/2022. * Family History: F ather: [...] * Vitals: Assessment: Plan: * Treatment: * Billing Information: * Visit Code: * Procedure Codes: * Electronic signature of ZENAIDA Fried on 11/29/2024 at 08:31 AM EDT Sign off status: Pending * Provider: ZENAIDA Garza Date: 0 07/17/2024 Generated for Jorge krishnan/Jennifer/Tlitting on: 0 11/29/2024 08:31 AM EDT
--- OUTSIDE RECORDS SUMMARY | 2024-11-26 10:50 | XMS_ITS ---
Author Organization [facility] Address [address] [place] [id number] Care Team Providers Care Undercollar Baster Name Role Phone Meir Escobar Primary Care Provider [phone] Allergies Allergen (clinical drug ingredient) Drug/Non Drug [...] rash Drug Allergy Active REASON FOR VISIT check up and refills, [...] 1 tab(s) orally 3 ti mes a day for 10 days Active Ondansetron HCl 4 MG TAKE 1 TABLET BY MO UT 3 TIMES DAILY NEEDED for 6 Active Problems Problem Type SNOMED Code ICD Code Onset Dates Problem Status W/U Status Risk Notes Problem Impaired vision (225182840) Impaired vision (H54.7) Active confirmed Vital Signs Blood pressure systolic 150 mm Hg 11/27/19 25 Blood pressure diastolic 80 mm Hg 025 Heart Rate 97 /min 11/26/2024 Height 63 in 11/26/2024 Weight 291 lbs 11/26/2024 BMI 51.54 kg/m2 11/26/2024 Encounters Encounter Location Date Provider Diagnosis [facility] [address] [facility] [address] [place], [place] [phone] 11/26/2024 R Yfn Escobar Type 2 diabetes mellitus without complication, [...] she follow-up with Dr. Escalera for evaluation Pending Test Test Name Order Date H-Lipid Panel 11/26/2024 H-CMP 11/26/2024 H-Glycohemoglobin A1C 11/26/2024 Next Appt Details Follow Up: 6 Months, Reason: Progress Notes * Tracie HUERTADOB: [birth year] (64 yo F)Acc No.[id number]:11/26/2024 Progress Notes Patient: Tracie LOZANO Provider: Meir Escobar M.D. :1960 A ge:64 Y S ex:Female Date:11/26/2024 Address:[address] [place] [address] [id number] Subjective: * Chief Complaints: * 1 . [...] has not been back to see the drapery head former. * ROS: D ERMATOLOGY: no R kinjal. [...] Hospitalization/Major Diagno stic Procedure: B ack Pain- [facility] 02/2013, Chest Pain- [facility] 07/25/2013, [place] Palsy- [facility] 03/15/2018, Back Pain- [facility] 06/09-, Hypoglycemia- [facility] UTC 07/05/2018, Heart Palpitations- [facility] 11/27/2019, Heart Palpitations - [facility] 04/27/2022. * Family History: F [...] General Appearance: N AD. Weight loss noted. HEENT: TM's normal, translucent. Oral cavity: n o lesions, mucosa moist and WNL, no erythema. Neck: s upple, no lymphadenopathy. Heart: R SR. Lungs: c lear to auscultation. Neurologic Exam: no focal deficits. Extremities: n o leg edema. Assessment: * Assessment: [...] * Labs: * L ab: H-Lipid Panel L ab: H-CMP L ab: H-Glycohemoglobin A1C * Follow Up: 6 Months * Billing Information: * Visit Code: 10140 Office Visit, Est Pt., Level 4. * Procedure Codes: * Electronic signature of Meir Escobar MD on 11/29/2024 at 08:31 AM EDT Sign off status: Pending * Provider: Meir Escobar M.D. Date: 0 11/26/2024 Generated for Jorge krishnan/Jennifer/eTransmitting on: 0 11/29/2024 08:31 AM EDT History and Physical Notes * [...]
--- OUTSIDE RECORDS SUMMARY | 2024-11-29 08:32 | XMS_ITS | Data Portability ---
Author Organization [place] [facility] Address [address] [facility] [address] [place] [address] Assessment Encounter Date Assessment Date Assessment LastModified by Organization Details LastModified Time 07/09/2018 07/09/2018 Lumbar x rays we re reviewed today on a CD rom. They show good placement of the hardware without evidence of loosening. Ms. [place] is s/p L4-5 fusion in 2011 and left L5-S1 LMD in 2012 with worsening low back and radicular left leg pain in an S1 distribution. Due to her previous fusion and discectomy adjacent to the fusion I am going to refer her for an MRI of the lumbar spine to assess for any new nerve impingement. I am also going to have her get flex/ext x rays to assess for any instability. She requests to have this done at [facility]. She will have the images placed on a disc and mailed to the office. We will be in touch with Dr. Reno's recommendations after he has reviewed the MRI. I have also provided her with an order to begin physical therapy. Patient understands and agrees with this plan. [email or web address] Not available 07/09/2018 15:41:46 11/20/2018 11/20/2018 58-year-old fema le presenting for evaluation of lumbar back pain. Patient is s/p L4-5 fusion in 2011 and left L5-S1 LMD in 2012 with ongoing axial back pain with radiation down the left anterior thigh to the knee. She notes neuropathic pain in the same distribution. Lumbar MRI showed stable hardware with left paracentric disc bulge at L3L4 with left foraminal narrowing. Patient has been seen and evaluated by neurosurgery, Dr. Reno, and referred for injection therapy. We discussed L3-4 lumbar epidural steroid injection to help improve pain complaints. Risks and benefits of the procedure were explained to the patient she wishes to proceed. We will plan to schedule the patient for L3-4 lumbar epidural steroid injection at the next available appointment. She is borderline diabetic and will like to discuss her concerns with elevated blood glucose levels following the procedure with her primary care physician. I think this is reasonable. After she develops a plan for managing such symptoms, patient will plan to schedule the injection. She will follow-up in one month for further evaluation. Not available 11/20/2018 10:09:06 Plan of Treatment Reminders Order Date Submit Date Provider Last Modified By Organization Details Last Modified Time Details Appointments None recorded. Lab None recorded. Referral physical therapy back referral 2018 019 [facility] (Scheduling), [address], [place], [address], 9 16:18:07 Procedures None recorded. Surgeries None recorded. Imaging XR, lumbosacral spine, 2 or 3 view, bending only 2018 019 [facility] (Scheduling), [address], [place], [address], 9 09:19:16 MRI, lumbar spine, w/wo contrast - WITH SEDATION 2018 019 [facility] Scheduling, [address] [facility] , [place], [address], 9 16:07:55 Medication Orders None recorded. Patient TargetsNo targets recorded. Patient Instructions Encounter Date Encounter Id Patient Instructions Last Modified By Organization Details Last Modified Time 11/20/2018 [id number] WRAP-UP Thank you for visiting [facility] at [facility] today. At today's visit the following were addressed: - SCHEDULE L3L4 LESI Thank you for visiting the [facility]. -Because of the high volume of calls we receive and the high demand for our clinical services, please allow for 24 hours for us to respond to patient calls. We are generally unable to discuss patient care advice over the telephone. If you are experiencing a medication side effect or complication, you can call and let us know, but we will typically not make a medication substitution or private branch exchange installer the telephone. -Acute exacerbations of pain and flare ups are quite common in chronic pain states and need to be dealt with as part of the senior living management plan. Please make an appointment with us if you wish to discuss a matter in any detail. Should you still need to call, please do so at . For additional information and services provided by our clinic you may visit our Pain Management Clinic website at: [email or web address] Thank you for choosing [facility]. It was a pleasure to see you in clinic today. Please contact us with any questions or concerns at . Not available 11/20/2018 09:27:32 Reason for Referral Referring Physician: Chaparrita Brambila, Neurosurgery, Encounter Date: 07/09/2018 Results Created Date Observation Date Name Description Value Unit Range Abnormal Flag Note LastModifiedBy Organization Detail LastModifiedTime 06/27/19 19 06/09/2018 XR, lumbo sacra l spine , 2 or 3 view No observ ation record ed. BARCODE Not Available 2018 07:50:31 07/18/19 19 07/18/2018 XR, lumbo sacra l spine , 2 or 3 view, bendi ng only No observ ation record ed. [email or web address] [facility] [address], [id number], 08/03/2018 15:14:11 10/09/19 19 10/08/2018 MRI, lumba r spine , w/o contr ast No observ ation record ed. [facility] , [place], [address], 10/16/2018 14:25:24 Result Notes None recorded. Problems No Known Problems Procedures Surgical History Date Name Laterality Status Provider Name and Address Organization Details Recorded Time lumbar microdiscectomy completed [facility] Hipolito [facility] 07/09/2018 15:13:13 lumbar spinal fusion completed [facility] 07/09/2018 15:13:20 hysterectomy completed Ann Marie Mcmillan [facility] 07/09/2018 15:13:28 Imaging Results None recorded. Procedure Notes None recorded. Medical Equipment None Reported. Allergies Allergen ID Allergen Name Allergen Category Reaction Reaction Severity Criticality Documentation Date Start Date Code Code System Note Provider Name and Address Organization Details Recorded Time 463740 morphine sulfate medicatio n Not available Not available Not available 05/05/20162008 74619 RxNorm Comme nt: Creat ed By: Les Bradley maurice Date: 9:42: 19 AM; Not Available [facility] 6 11:16:07 069849 Demerol medicatio n Not available Not available Not available 05/05/20162008 72996 1 RxNorm Comme nt: Creat ed By: Les Bradley maurice Date: 9:41: 58 AM; Not Available [facility] 6 14:10:09 Medications Name Sig Start Date Stop Date Status Note LastModified by Organization Details LastModified Time cyclobenzaprin e 10 mg tablet active Not Available Not Availab le Not Available promethazine-D M 6.25 mg-15 mg/5 mL oral syrup active Not Available Not Available Not Available nystatin 100,000 unit/mL oral suspension active Not Available Not Available N ot Available prednisone 10 mg tablet active Not Available Not Available No t Available cefuroxime axetil 250 mg tablet active Not Available Not Available Not Available azithromycin 250 mg tablet active Not Available Not Availabl e Not Available Lortab 7.5 mg-500 mg tablet Four times a day 2012 active Frequen cy: qid;Alt Frequen cy: prn;Med ication Descrip tion: acetami nophen- hydroco done; Dosage: 1; Route:o ral; refills :0; Quantit y:35 tablet Not Available Not Available Not Available ondansetron HCl 4 mg tablet active Not Available Not Available Not Available prednisone 20 mg tablet active Not Available Not Available No t Available acetaminophen 300 mg-codeine 30 mg tablet active Not Available Not Available Not Available sulfamethoxazo le 800 mg-trimethopri m 160 mg tablet active Not Available Not Available Not Available lovastatin 10 mg tablet Daily active Not Available Not Available No t Available levothyroxine 25 mcg tablet active Not Available Not Availabl e Not Available dexamethasone 0.5 mg/5 mL oral solution active Not Available Not Availabl e Not Available prednisone 10 mg tablets in a dose pack active Not Available Not Available Not Available diltiazem 120 mg tablet active Not Available Not Available No t Available famciclovir 500 mg tablet active Not Available Not Availabl e Not Available meclizine 25 mg tablet active Not Available Not Available No t Available diazepam 2 mg tablet active Not Available Not Available Not Available doxycycline monohydrate 100 mg capsule active Not Available Not Availab le Not Available hyoscyamine 0.125 mg disintegrating tablet active Not Available Not Available Not Available cephalexin 500 mg capsule active Not Available Not Available N ot Available prednisone 50 mg tablet active Not Available Not Available No t Available mupirocin calcium 2 % topical cream active Not Available Not Availabl e Not Available montelukast 10 mg tablet active Not Available Not Available No t Available hydroxyzine HCl 25 mg tablet active Not Available Not Available Not Available diazepam 10 mg tablet Take 1 tablet by oral route. active Not Available Not Available No t Available fluocinonide 0.05 % topical solution active Not Available Not Available Not Available methylpredniso lone 4 mg tablets in a dose pack active Not Available Not Available No t Available Vitamin D2 1,250 mcg (50,000 unit) capsule active Not Available Not Available Not Available fluticasone propionate 50 mcg/actuation nasal spray,suspensi on active Not Available Not Available Not Available Eucrisa 2 % topical ointment active Not Available Not Available Not Available Vitals Date Recorded Body height Body mass index (BMI) Body weight Systolic blood pressure Diastolic blood pressure Provider Name and Address Organization Details Last Updated DateTime 07/09/2018 162.56 cm 49.3 kg/m2 283863.0 1 g 162 mm[Hg] 88 mm[Hg] Ann Marie Hipolito [facility] 9 15:19:36 Date Recorded Body height Body mass index (BMI) Body weight Systolic blood pressure Diastolic blood pressure Provider Name and Address Organization Details Last Updated DateTime 11/20/2018 162.56 cm 50.1 kg/m2 270521.9 7 g 150 mm[Hg] 92 mm[Hg] Mary Sanchez [facility] 9 09:03:52 Social History Question Answer Notes LastModified by Organizat ion Details LastModified Time Tobacco Smoking Status Never Smoker Ann Marie Mcmillan [facility] 07/09/2018 15:12:50 What Was The Date Of Your Most Recent Tobacco Screening? 11/20/2018 Information n ot available 07/30/2019 Sex: Unknown Functional Status None recorded. Mental Status None recorded. Family History Relationship Description Onset Age of this Age Resolved Age Notes LastModified by Organization Details LastModified Time Unspecified Relation Hypertensive disorder [email or web address] Not available 07/09 15:12:56 Unspecified Relation Cerebrovascu lar accident [email or web address] Not available 15:13:01 Medical History Condition Response Thyroid Disorder Y Hypertension Y Gynecological HistoryNo gynecological history recorded. Obstetrics History GPAL:G 0 P 0 0 0 0 Past Encounters Encounter ID Performer Location Encounter Start Date Encounter Closed Date Diagnosis/Indication Diagnosis SNOMED-CT Code Diagnosis ICD10 Code Diagnosis Note [id number] CHAPARRITA BRAMBILA PA-C [facility] [address] [place] [address] 07/09/2018 14:45:15 07/10/2018 09:53:03 Lumbar radiculopathy 574568761 M54.16 [id number] KATRIN SANDHU MD [facility] [address] [place] [address] 11/20/2018 08:36:52 11/23/2018 08:56:05 Lumbar radiculopathy 720223811 M54.16 Health Concerns Section Related Observation LastModified by Organization Detai ls LastModified Time None Recorded Concern Status LastModified by Organization Details LastModified Time None Recorded Advance Directives Directive None Recorded Payers Insurance Date Sequence Insurance Name Policy Number Policy Kuhn Covered Member ID Kuhn Member ID Guarantor Name 05/06/2020 1 [place] [id number] Gal [place] [id number] Traciedong [place] Notes Date Note Type Note Provider Name and Address Organization Details Recorded Time 07/09/2018 text/html Ms. [place] is s/p L4-5 PLIF on 03/02/12 and Left L5-S1 LMD on 10/12/[address] Reno. She returns today with about 1 month of worsening low back pain with fluctuating pain in to her left posterior thigh and calf extending in to her toes. Her pain is worse with activity and bending. It improves with rest. She has been taking Tylenol #3 and muscle relaxers with minimal improvement. CHAPARRITA BRAMBILA PA-C [address] [place], [address], [facility] 07/09/2018 15:42:05 11/20/2018 text/html 58yo female presenting for evaluation of lumbar back pain. Patient is s/p L4-5 fusion in 2011 and left L5-S1 LMD in 2013 with ongoing axial back pain with radiation down the left anterior thigh to the knee. She notes neuropathic pain in the same distribution. Lumbar MRI showed stable hardware with left paracentric disc bulge at L3L4 with left foraminal narrowing. Patient has been seen and evaluated by neurosurgery, Dr Reno, and referred for injection therapy. She has noted benefit from flexeril. KATRIN SANDHU MD [address] [place], [address], [facility] 11/20/2018 10:09:19 OBGyn Episode No OBEpisode recorded.
--- OUTSIDE RECORDS SUMMARY | 2024-11-29 08:32 | XMS_ITS | Patient Health Record ---
[facility] Address [address] [facility] [address] [place] [phone] Care Team Providers Care Personal Attendant Name Role Phone Meir Escobar Primary Care Provider Mayra Trinidad Unavailable [phone] Allergies Allergen (clinical drug ingredient) Drug/Non Drug [...] Active morphine Morphine rash Drug Allergy Active Medications Medication SIG (Take, Route, Frequency, Duration) Notes Start Date End Date Status Meclizine HCl 25 MG 1 tab(s) orally 3 ti mes a day for 10 days Active Lovastatin 20 MG 1 tablet with the [...] Orally every 6 hrs prn 04/16/2024 Active Ondansetron HCl 4 MG TAKE 1 TABLET BY [facility] 3 TIMES DAILY NEEDED for 6 Active Immunizations Vaccine Route Administration Date Status Comme nts Tetanus Tdap-Adacel (over 7yrs) Unknown 10/13/2018 Administered Fluzone Quad (6months&older) IM Intramuscular 06/03/2019 Administered Problems Problem Type SNOMED Code ICD Code Onset Dates Problem Status W/U Status Risk Notes Problem Insomnia (299679792) Insomnia (G47.00) Active confirmed Problem Vitamin D deficiency (69480911) Vitamin D deficiency (E55.9) Active confirmed Problem 71974785 Essential hypertension (I10) Active confirmed Problem 806882317 Hypoglycemia (E16.2) Active confirmed Problem Irritable bowel syndrome (72788941) IBS (irritable bowel syndrome) (K58.9) Active confirmed Problem Cardiac dysrhythmia (259424307) Cardiac dysrhythmia (I49.9) Active confirmed Problem Seasonal allergy (474852787) Seasonal allergies (J30.2) Active confirmed Problem Body mass index 40+ - severely obese (188368571) BMI 50.0-59.9, adult (Z68.43) Active confirmed Problem 875158013 Mixed hyperlipidemia (E78.2) Active confirmed Problem 697717462 Other insomnia (G47.09) Active confirmed Problem 927416312 GERD without esophagitis (K21.9) Active confirmed Problem 085017222 Acquired hypothyroidism (E03.9) Active confirmed Problem 24379147 Right sided sciatica (M54.31) Active confirmed Problem 392580233 Dyslipidemia (E78.5) Active confirmed Problem 464667374 Type 2 diabetes mellitus without complication, without long-term current use of insulin (E11.9) Active confirmed Problem 13637450 LUIS (generalized anxiety disorder) (F41.1) Active confirmed Problem Impaired vision (378375502) Impaired vision (H54.7) Active confirmed Vital Signs Heart Rate 97 /min 11/26/2024 Blood pressure diastolic 80 mm Hg 11/26/2024 Height 63 in 11/26/2024 Blood pressure systolic 150 mm Hg 11/26/2024 Weight 291 lbs 11/26/2024 BMI 51.54 kg/m2 11/26/2024 Encounters Encounter Location Date Provider Diagnosis [facility] [address] [place], [place] [id number] 11/26/2024 R Yfn Dykeseet Type 2 diabetes mellitus without complication, without long-term current use of insulin E11.9 ; Essential hypertension I10 ; Dyslipidemia E78.5 ; LUIS (generalized anxiety disorder) F41.1 and Impaired vision H54.7 [facility] [address] [place], [place] [id number] 12/28/2023 R Yfn [place]fleet Type 2 diabetes mellitus without complication, without long-term current use of insulin E11.9 [facility] [address] [place], [place] [id number] 01/10/2024 R Yfn [place] Type 2 diabetes mellitus without complication, without long-term current use of insulin E11.9 [facility] [address] [place], [place] [id number] 01/12/2024 R Yfn [place] [facility] [address] [place], [place] [id number] 04/15/2024 R Yfn Shawn [facility] [address] [place], [place] [id number] 06/27/2024 R Yfn [place] [facility] [address] [place], [place] [id number] 08/20/2024 R Yfn [place] LUIS (generalized anxiety disorder) F41.1 [facility] [address] [facility] [address] [place], [place] [id number] 11/13/2024 R Yfn Dykeseet Assessments Encounter Date Diagnosis (ICD Code) Assessment Notes Treatment Notes Treatment Clinical Notes Section Notes 12/28/2023 Type 2 diabetes mellitus without complication, without long-term current use of insulin (ICD-10 - E11.9) 01/10/2024 Type 2 diabetes mellitus without complication, without long-term current use of insulin (ICD-10 - E11.9) 08/20/2024 LUIS (generalized anxiety disorder) (ICD-10 - F41.1) 11/26/2024 Essential hypertension (ICD-10 - I10) 11/26/2024 Type 2 diabetes mellitus without complication, without long-term current use of insulin (ICD-10 - E11.9) 11/26/2024 Dyslipidemia (ICD-10 - E78.5) 11/26/2024 LUIS (generalized anxiety disorder) (ICD-10 - F41.1) 11/26/2024 Impaired vision (ICD-10 - H54.7) Advise she follow-up with Dr. Escalera for evaluation Plan Of Treatment Pending Test Test Name Order Date Cologuard 07/11/2023 H-Lipid Panel 11/26/2024 H-CMP 11/26/2024 H-Glycohemoglobin A1C 11/26/2024 Insurance Providers Payer Name Payer Address Payer Phone Subscriber Number Group Number Insured Name Patient Relationship to Insured Coverage Start Date Coverage End Date [employer] [address] [place] [address] [id number] Tracie [place] Self - patient is the insured Medical (General) History Medical History History ICD Code Herniated Disc HBP HLP Ulcers Anxiety Hypothyroidism White Coat Syndrome Cataracts Surgical History Surgery Date(Month/Year) Total Hysterectomy 2006 Herniated Disc Partical Removal- Dr. Jasmina emery 12/17/2008 Endoscopy X 2 2006 Lumbar- Dr. Reno 02/2012 Mole Removal 12/2017 Right cataract/ Dr. Escalera 03/2024 Hospitalization History Reason Date(Month/Year) Heart Palpitations - [facility] 04/27/2022 Heart Palpitations- [facility] 11/27/2019 Hypoglycemia- [facility] 07/05/2018 Back Pain- [facility] ER 06/09- [place] Palsy- [facility] ER 03/15/2018 Chest Pain- [facility] 07/25/2013 Back Pain- [facility] ER 02/2013
--- OUTSIDE RECORDS SUMMARY | 2024-11-29 08:32 | XMS_ITS | Clinical Summary ---
Author Organization [facility] Address [address] [place] [address] Care Team Providers Care Electroless Plater Name Role Phone Unavailable Primary Care Provider Unavailabl e Social History Tobacco Use Types Packs/Day Years Used Date Smoking Tobacco: Never Assessed Comments Unknown Sex and Gender Information Value Date Recorded Sex Assigned at Female 12/07/2021 4:47 PM CDT Legal Sex Female 4:47 PM CDT Gender Identity Female 12/07/2021 4:47 PM CDT Sexual Orientation Not on file Plan of Treatment Not on file
--- OUTSIDE RECORDS SUMMARY | 2024-11-29 08:32 | XMS_ITS | Referral Summary ---
Author Organization [facility] Address [address] [place] [address] Care Team Providers Care Manager Review Name Role Phone Unavailable Primary Care Provider [...]
[2024-11-29 10:57] LABS: Hemoglobin A1C 7.5 % (4.0-6.0)
[2024-11-29 11:52] LABS: Alanine Aminotransferase 37 U/L (12-78); Albumin/Globulin Ratio 1.3 (1.1-1.8); Alkaline Phosphatase 75 U/L (38-126); Anion Gap 17.1 mEq/L (5-15); Aspartate Amino Transferase 35 U/L (14-36); Bilirubin,Total 0.7 mg/dl (0.2-1.3); Blood Urea Nitrogen 15 mg/dl (7-17); Calcium 9.5 mg/dl (8.4-10.2); Carbon Dioxide 22 mmol/L (22.0-30.0); Chloride 106 mmol/L (98-107); Chol/HDL Ratio 4.3 (1-3.5); Cholesterol 188 mg/dl (140-200); Estimated Glomerular Filt Rate 72 ml/min (>60); GFR (African American) 88 ML/MIN (>60); Glucose 135 mg/dl (74-100); HDL Cholesterol 44 mg/dl (40-60); Potassium 4.1 mmoL/L (3.5-5.1); Sodium 141 mmol/L (136-145); Triglycerides 114 mg/dl (30-150); VLDL Cholesterol 23 mg/dL (0-40)
[2024-11-29 12:03] LABS: Direct LDL Cholesterol 115.72 mg/dL (100-129)
== END 2024-11-29 23:59 | disposition home or self-care (01) ==
LOC: LAB 08:29
PROVIDERS: PCP Family Medicine; Visit Provider Family Medicine
DX: E78.5 Hyperlipidemia, unspecified (principal); E11.9 Type 2 diabetes mellitus without complications; I10 Essential (primary) hypertension
CPT/HCPCS: 36415; 80053; 80061; 83036

== ENCOUNTER 2025-03-15 08:23 | Outpatient (CLI) | payer BC, SELFPAY ==
--- OUTSIDE RECORDS SUMMARY | 2023-11-28 06:25 | XMS_ITS ---
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 Name Role Phone Meir Escobar Primary Care Provider Mayra Trinidad [phone] Results Component Value Reference Range Notes Glycohemoglobin A1c (in hous e) Reviewed date:12/01/2023 04:29:30 PM Interpretation:6.4 Performing Lab: Notes/Report: 6.4 glycohemoglobin 6.4% 5 - 6.5 % REASON FOR VISIT AC1 check Encounters Encounter Location Date Provider Diagnosis [place] [address] [facility] [address] [place] [id number] 11/28/2023 Mayra Trinidad Elevated glucose lev el R73.09 Assessments Encounter Date Diagnosis (ICD Code) Assessment Notes Treatment Notes Treatment Clinical Notes Section Notes 11/28/2023 Elevated glucose level (ICD-10 - R73.09) Plan Of Treatment No Information Progress Notes * Tracie HUERTADOB: 2 (64 yo F)Acc No.[id number]:11/28/2023 Patient: Tracie LOZANO Provider: ZENAIDA Garza :1960 A ge:63 Y S ex:Female Date:11/28/2023 Address:[facility] [id number] Pcp:Meir Escobar Subjective: * Chief Complaints: * 1 . AC1 check. * Medical History: Objective: * Vitals: Assessment: * Assessment: 1. E levated glucose level - R73.09 Plan: * Treatment: Value Reference Range g lycohemoglobin 6.4% 5 - 6.5 % * Tracie Hernandes 11/28/2023 10: 32:01 AM >Mayra Trinidad 12/01/2023 4:29:25 PM > see TE * Procedure Codes: 3 6416 CAPILLARY BLOOD DRAW, 72960 GLYCATED HEMOGLOBIN TEST, Modifiers: QW * Images: Billing Information: * Visit Code: * Procedure Codes: 35575 CAPILLARY BLOOD DRAW. 62367 GLYCATED HEMOGLOBIN TEST. Modifiers: QW * Electronic signature of ZENAIDA Fried on 03/15/2025 at 08:28 AM EDT Sign off status: Pending * Provider: ZENAIDA Garza Date: 0 11/28/2023 Generated for Jorge krishnan/Jennifer/eTransmitting on: 1 08:28 AM EDT
--- OUTSIDE RECORDS SUMMARY | 2024-07-17 09:15 | XMS_ITS ---
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 Role Phone Meir Escobar Primary Care Provider [phone] Mayra Trinidad [phone] Allergies Allergen (clinical drug ingredient) Drug/Non Drug Allergy documented on EMR Reaction Allergy Type Onset Date Status amoxicillin Amoxicillin lips swelled Drug Allergy Active meperidine Demerol itching Drug Allergy Active nitrofurantoin Macrodantin Stomach cramps Drug Allergy Active rosuvastatin Rosuvastatin Calcium stomach upset Drug Allergy Active ezetimibe Zetia itching Drug Allergy Active azithromycin Zithromax stomach upset Drug Allergy Active morphine Morphine rash Drug Allergy Active REASON FOR VISIT ear pain, ears stopped up and headache Encounters Encounter Location Date Provider Diagnosis [place] [address] [facility] [address] [place] [phone] 07/17/2024 Mayra Trinidad Plan Of Treatment No Information Progress Notes * DEANNATracie MONSALVEDOB: 2 (64 yo F)Acc No.[id number]:07/17/2024 Progress Notes Patient: Tracie LOZANO Provider: ZENAIDA Garza :1960 A ge:64 Y S ex:Female Date:07/17/2024 Address:[address] [id number] Pcp:Meir Escobar Subjective: * Chief Complaints: * 1 . Ear pain, ears stopped up and headache. * ROS: D ERMATOLOGY: no R kinjal. n o H kirby. G ASTROENTEROLOGY: no N ausea. n o V omiting. n o D iarrhea.? U ROLOGY: no D ifficulty urinating. n o B lood in urine. * Medical History: H erniated Disc , HBP, HLP, Ulcers , Anxiety, Hypothyroidism, White Coat Syndrome, Cataracts. * Surgical History: T otal Hysterectomy 2005, Herniated Disc Partical Removal- Dr. Pablo 12/17/2008, Endoscopy X 2 2005, Lumbar- Dr. Reno 02/2012, Mole Removal 12/2017. * Hospitalization/Major Diagno stic Procedure: B ack Pain- [facility] [place] [facility] 02/2013, Chest Pain- [facility] [place] [facility] 07/25/2013, [place] Palsy- [facility] [place] [facility] 03/15/2018, Back Pain- [facility] [place] [facility] 06/09-, Hypoglycemia- [facility] [place] UTC 07/05/2018, Heart Palpitations- [facility] [place] [facility] 11/27/2019, Heart Palpitations - [facility] [place] [facility] 04/27/2022. * Family History: F ather: , stroke, HBP. M other: unknown 86 yrs, TIA. 2 sister(s) . 1 son(s) . . * Social History: C URRENT TOBACCO USE S moking Status: Patient does NOT smoke. C affeine: no. Home smoke detector use: yes. Recreational drug use: no. Alcohol: Yes, Type: , Frequency: socially ,Years: , Determination:. * Allergies: M orphine: rash, Demerol: itching, Amoxicillin: lips swelled, Zithromax: stomach upset, Macrodantin: Stomach cramps - Side Effects, Rosuvastatin Calcium: stomach upset - Side Effects, Zetia: itching - Side Effects. Objective: * Vitals: Assessment: Plan: * Treatment: * Images: Billing Information: * Visit Code: * Procedure Codes: * Electronic signature of ZENAIDA Fried on 03/15/2025 at 08:27 AM EDT Sign off status: Pending * Provider: ZENAIDA Garza Date: 0 07/17/2024 Generated for Jorge krishnan/Jennifer/Sherita on: 1 08:27 AM EDT
--- OUTSIDE RECORDS SUMMARY | 2024-11-26 10:50 | XMS_ITS ---
Author Organization [facility] Address [address] [place] [phone] Care Team Providers Care Deputy Chief Counsel Name Role Phone Meir Escobar Primary Care Provider Allergies Allergen (clinical drug ingredient) Drug/Non Drug Allergy documented on EMR Reaction Allergy Type Onset Date Status amoxicillin Amoxicillin lips swelled Drug Allergy Active meperidine Demerol itching Drug Allergy Active nitrofurantoin Macrodantin Stomach cramps Drug Allergy Active tirzepatide Mounjaro Unknown Drug Allergy Activ e semaglutide Ozempic (0.25 or 0.5 MG/DOSE) Unknown Drug Allergy Active rosuvastatin Rosuvastatin Calcium stomach upset Drug Allergy Active ezetimibe Zetia itching Drug Allergy Active azithromycin Zithromax stomach upset Drug Allergy Active morphine Morphine rash Drug Allergy Active Results Component Value Reference Range Notes H-Lipid Panel Reviewed date:12/01/2024 10:41:05 PM Interpretation:LDL 115 Performing Lab: Notes/Report: Patient Fasting? Y TRIG 114 30-150 mg/dl CHOL 188 140-200 mg/dl DLDL 115.72 100-129 mg/dL VLDL 23 0-40 mg/dL HDL 44 40-60 mg/dl CHLHDL 4.3 1-3.5 H-CMP Reviewed date:12/01/2024 10:41:06 PM Interpretation: Performing Lab: Notes/Report: NA 141 136-145 mmol/L K 4.1 3.5-5.1 mmoL/L CL 106 98-107 mmol/L CO2 22 22.0-30.0 mmol/L GAP 17.1 5-15 mEq/L BUN 15 7-17 mg/dl CREATT 0.80 0.52-1.04 mg/dl GFRAA 88 >60 ML/MIN EGFR 72 >60 ml/min GLU 135 74-100 mg/dl CA 9.5 8.4-10.2 mg/dl BILIT 0.7 0.2-1.3 mg/dl AST 35 14-36 U/L ALT 37 12-78 U/L TP 7.0 6.3-8.2 g/dl ALB 4.0 3.5-5.0 g/dl GLOB 3.0 1.3-3.2 g/dL AGRATIO 1.3 1.1-1.8 ALP 75 38-126 U/L H-Glycohemoglobin A1C Reviewed date:12/01/2024 10:41:06 PM Interpretation:7.5% Performing Lab: Notes/Report: HGBA1C 7.5 4.0-6.0 % < 6% Non-Diabetic Level < 7% Controlled Diabetic Level > 8% Poorly Controlled Diabetic Level REASON FOR VISIT check up and refills, Needs labs, mammogram, bone density screening, colon cancer screening, & shingles vaccine Medications Medication SIG (Take, Route, Frequency, Duration) Notes Start Date End Date Status Lovastatin 20 MG 1 tablet with the ev ening meal Orally Once a day Active Bisoprolol Fumarate 5 MG 1/2 tab(s) oral ly once a day Active dilTIAZem HCl 120 MG TAKE 1/2 TABLET BY MOUTH ONCE DAILY Active diazePAM 2 MG 1-2 tab(s) orally tw o times a day as needed 11/26/2024 Active Promethazine-DM 6.25-15 MG/5ML 5-10 ml Orally every 6 hrs prn 04/16/2024 Active Meclizine HCl 25 MG 1 tab(s) orally 3 ti mes a day; Duration: 10 days Active Ondansetron HCl 4 MG TAKE 1 TABLET BY MO UTH 3 TIMES DAILY NEEDED; Duration: 6 Active Problems Problem Type SNOMED Code ICD Code Onset Dates Problem Status W/U Status Risk Notes Problem Impaired vision (650411420) Impaired vision (H54.7) Active confirmed Vital Signs Blood pressure systolic 150 mm Hg 11/27/19 25 Blood pressure diastolic 80 mm Hg 025 Heart Rate 97 /min 11/26/2024 Height 63 in 11/26/2024 Weight 291 lbs 11/26/2024 BMI 51.54 kg/m2 11/26/2024 Encounters Encounter Location Date Provider Diagnosis [facility] [address] [facility] [address] [place] [phone] 11/26/2024 Meir Escobar Type 2 diabetes mellitus without complication, without long-term current use of insulin E11.9 ; Essential hypertension I10 ; Dyslipidemia E78.5 ; LUIS (generalized anxiety disorder) F41.1 and Impaired vision H54.7 Assessments Encounter Date Diagnosis (ICD Code) Assessment Notes Treatment Notes Treatment Clinical Notes Section Notes 11/26/2024 Type 2 diabetes mellitus without complication, without long-term current use of insulin (ICD-10 - E11.9) 11/26/2024 Essential hypertension (ICD-10 - I10) 11/26/2024 Dyslipidemia (ICD-10 - E78.5) 11/26/2024 LUIS (generalized anxiety disorder) (ICD-10 - F41.1) 11/26/2024 Impaired vision (ICD-10 - H54.7) Advise she follow-up with Dr. Escalera for evaluation Plan Of Treatment Medication Medication Name Sig Start Date Stop Date Notes Lovastatin 20 MG 1 tablet with the ev ening meal Orally Once a day dilTIAZem HCl 120 MG TAKE 1/2 TABLET BY MOUTH ONCE DAILY diazePAM 2 MG 1-2 tab(s) orally tw o times a day as needed 11/26/2024 Treatment Notes Assessment Notes Impaired vision Advise she follow-up with Dr. Escalera for evaluation Next Appt Details Follow Up: 6 Months, Reason: Progress Notes * Tracie STERLINGDOB: 2 (64 yo F)Acc No.[id number]:11/26/2024 Progress Notes Patient: Bryce LOZANOcy Provider: Meir Escobar M.D. :1960 A ge:64 Y S ex:Female Date:11/26/2024 Address:[address] [place] [address] [id number] Subjective: * Chief Complaints: * 1 . Check up and refills. 2. Needs labs, mammogram, bone density screening, colon cancer screening, & shingles vaccine. * HPI: C ardiology: She comes in today for follow-up on her hypertension and diabetes. She has been more diligent and compliant with her diet and has lost some weight since her last visit. E ndocrinology: She is currently managing her blood sugar with diet. She does not monitor her blood sugar regularly at home. O pthalmology: She had right cataract surgery last March with Dr. Escalera and states she did well for a few weeks but since then patient has been very blurry and worse than prior to her surgery. 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 * ROS: D ERMATOLOGY: no R kinjal. [...] 2005, Lumbar- Dr. Reno 02/2012, Mole Removal 12/2017, Right cataract/ Dr. Escalera 03/2024. * Hospitalization/Major Diagno stic Procedure: B ack Pain- [facility] 02/2013, Chest Pain- [facility] 07/25/2013, [place] Palsy- [facility] 03/15/2018, Back Pain- [facility] 06/09-, Hypoglycemia- [facility] 07/05/2018, Heart Palpitations- [facility] 11/27/2019, Heart Palpitations - [facility] 04/27/2022. * Family History: F ather: , stroke, HBP. M other: unknown 86 yrs, TIA. 2 sister(s) . 1 son(s) . . * Social History: C URRENT TOBACCO USE S moking Status: Patient does NOT smoke. C affeine: no. Home smoke detector use: yes. Recreational drug use: no. Alcohol: Yes, Type: , Frequency: socially ,Years: , Determination:. * Medications: T aking Bisoprolol Fumarate 5 MG Tablet 1/2 tab(s) orally once a day , Taking dilTIAZem HCl 120 MG Tablet TAKE 1/2 TABLET BY MOUTH ONCE DAILY , Taking Promethazine-DM 6.25-15 MG/5ML Syrup 5-10 ml Orally every 6 hrs prn , Taking Ondansetron HCl 4 MG Tablet TAKE 1 TABLET BY MOUTH 3 TIMES DAILY NEEDED , Taking diazePAM 2 MG Tablet 1-2 tab(s) orally two times a day as needed , Taking Lovastatin 20 MG Tablet 1 tablet with the evening meal Orally Once a day , Taking Meclizine HCl 25 MG Tablet 1 tab(s) orally 3 times a day , Medication List reviewed and reconciled with the patient * Allergies: M orphine: rash, Demerol: itching, Amoxicillin: lips swelled, Zithromax: stomach upset, Macrodantin: Stomach cramps - Side Effects, Rosuvastatin Calcium: stomach upset - Side Effects, Zetia: itching - Side Effects, Ozempic (0.25 or 0.5 MG/DOSE): Side Effects, Mounjaro: Side Effects. Objective: * Vitals: W t: 291, Temp: 98.0, BP: 150/80, HR: 97, Nurse: celia, Ht: 63, BMI:51.54. * Examination: G eneral Examination: General Appearance: N AD. Weight loss noted. H EENT: TM's normal, translucent. O ral cavity: n o lesions, mucosa moist and WNL, no erythema. N kathrin: s upple, no lymphadenopathy. H eart: R SR. L ungs: clear to auscultation. N eurologic Exam: no focal deficits. E xtremities: n o leg edema. Assessment: * Assessment: 1. T ype 2 diabetes mellitus without complication, without long-term current use of insulin - E11.9 (Primary) 2 . E ssential hypertension - I10 3 . D yslipidemia - E78.5 4 . G AD (generalized anxiety disorder) - F41.1 5 . I mpaired vision - H54.7 Plan: * Treatment: 2. I mpaired vision Notes: Advise she follow-up with Dr. Escalera for evaluation 3. O thers Refill Lovastatin Tablet, 20 MG, 1 tablet with the evening meal, Orally, Once a day, 90, Refills 1;?Refill dilTIAZem HCl Tablet, 120 MG, TAKE 1/2 TABLET BY MOUTH ONCE DAILY, 90, Refills 1. ? * Labs: * L ab: H-Lipid Panel (Collection Date & Time - 11/29/2024 08:35 AM) L DL 115 Value Reference Range T RIG 114 30-150 - mg/dl * C HOL 188 140-200 - mg/dl * D LDL 115.72 100-129 - mg/dL * V LDL 23 0-40 - mg/dL * H DL 44 40-60 - mg/dl * C HLHDL 4.3 H 1-3.5 - * Meir Escobar 12/01/2024 10:40:49 PM EDT > See phone encounter ?Lab: H-CMP (Collection Date & Time - 11/29/2024 08:35 AM)* Value Reference Range N A 141 136-145 - mmol/L * K 4.1 3.5-5.1 - mmoL/L * C L 106 98-107 - mmol/L * C O2 22 22.0-30.0 - mmol/L * G AP 17.1 H 5-15 - mEq/L * B UN 15 7-17 - mg/dl * C REATT 0.80 0.52-1.04 - mg/dl * G FRAA 88 >60 - ML/MIN * E GFR 72 >60 - ml/min * G MARGUERITE 135 H 74-100 - mg/dl * C A 9.5 8.4-10.2 - mg/dl * B ILIT 0.7 0.2-1.3 - mg/dl * A ST 35 14-36 - U/L * A LT 37 12-78 - U/L * T P 7.0 6.3-8.2 - g/dl * A LB 4.0 3.5-5.0 - g/dl * G LOB 3.0 1.3-3.2 - g/dL * A GRATIO 1.3 1.1-1.8 - * A LP 75 38-126 - U/L * Meir Escobar 12/01/2024 10:40:49 PM EDT > See phone encounter ?Lab: H-Glycohemoglobin A1C (Collection Date & Time - 11/29/2024 08:35 AM) ?7.5%* Value Reference Range H GBA1C 7.5 H 4.0-6.0 - % * Meir Escobar 12/01/2024 10:40:49 PM EDT > See phone encounter * Procedure Codes: 1 036F TOBACCO NON-USER, 3051F HG A1C>EQUAL 7.0%<8.0% * Follow Up: 6 Months * Images: Billing Information: * Visit Code: 90133 Office Visit, Est Pt., Level 4. * Procedure Codes: 1036F TOBACCO NON-USER. 3051F HG A1C>EQUAL 7.0%<8.0%. * Electronic signature of Meir Escobar MD on 03/15/2025 at 08:28 AM EDT Sign off status: Pending * Provider: Meir Escobar M.D. Date: 0 11/26/2024 Generated for Jorge krishnan/Jennifer/eTransmitting on: 1 08:28 AM EDT History and Physical Notes * Examination Category Sub-Category Detail Notes Category Not es General Examination HEENT: TM's normal, transluc ent Heart: RSR Lungs: clear to auscultatio n Extremities: no leg edema General Appearance: NAD. Weight loss not ed Neurologic Exam: no focal deficits Neck: supple, no lymphaden opathy Oral cavity: no lesions, mucosa m oist and WNL, no erythema
--- OUTSIDE RECORDS SUMMARY | 2025-03-06 11:22 | XMS_ITS ---
[facility] [address] [facility] [address] [facility] [address] [place] [id number] Care Team Providers Care Head Bellhop Captain Name Role Phone Meir Escobar Primary Care Provider REASON FOR VISIT Message Encounters Encounter Location Date Provider Diagnosis Stefany [address] [facility] [address] [facility] [address] [place] [phone] 03/06/2025 Meir Escobar Acquired hypothyroid ism E03.9 ; Essential hypertension I10 ; Dyslipidemia E78.5 ; Vitamin D deficiency E55.9 and Type 2 diabetes mellitus without complication, without long-term current use of insulin E11.9 Assessments Encounter Date Diagnosis (ICD Code) Assessment Notes Treatment Notes Treatment Clinical Notes Section Notes 03/06/2025 Acquired hypothyroidism (ICD-10 - E03.9) 03/06/2025 Essential hypertension (ICD-10 - I10) 03/06/2025 Dyslipidemia (ICD-10 - E78.5) 03/06/2025 Vitamin D deficiency (ICD-10 - E55.9) 03/06/2025 Type 2 diabetes mellitus without complication, without long-term current use of insulin (ICD-10 - E11.9) Plan Of Treatment Pending Test Test Name Order Date H-TSH 03/06/2025 H-VITAMIN D 03/06/2025 H-Lipid Panel 03/06/2025 H-CMP 03/06/2025 H-Glycohemoglobin A1C 03/06/2025 H-T4 free 03/06/2025 Progress Notes * Tracie HUERTADOB: 2 (64 yo F)Acc No.[id number]:03/06/2025 Patient: Tracie LOZANO :1960 A ge:64 Y S ex:Female Address:[address] [place], [place] [address] [facility] [address] Subjective: * Chief Complaints: * M essage * Medical History: * Surgical History: * Hospitalization/Major Diagno stic Procedure: * Medications: Objective: * Vitals: * Physical Examination: Assessment: * Assessment: 1. A cquired hypothyroidism - E03.9 2 . E ssential hypertension - I10 ? 3 . D yslipidemia - E78.5 4 . V itamin D deficiency - E55.9 ? 5 . T ype 2 diabetes mellitus without complication, without long-term current use of insulin - E11.9 Plan: * Treatment: 2. E ssential hypertension L AB: H-CMP 3. D yslipidemia L AB: H-Lipid Panel 4. V itamin D deficiency L AB: H-VITAMIN D 5. T ype 2 diabetes mellitus without complication, without long-term current use of insulin L AB: H-Glycohemoglobin A1C * Procedure Codes: * true * Date: Generated for Jorge krishnan/Jennifer/Sherita on: 08:28 AM EDT
--- OUTSIDE RECORDS SUMMARY | 2025-03-15 08:27 | XMS_ITS | Patient Health Record ---
[facility] Organization [facility] Address [address] [place] [phone] Care Team Providers Care Professor Of Business Name Role Phone Meir Escobar Primary Care Provider Mayra Trinidad Unavailable [phone] Allergies Allergen (clinical drug ingredient) Drug/Non Drug [...] Active Results Component Value Reference Range Notes H-Glycohemoglobin A1C Reviewed date:12/01/2024 10:41:06 PM Interpretation:7.5% Performing Lab: Notes/Report: HGBA1C 7.5 4.0-6.0 % < 6% Non-Diabetic Level < 7% Controlled Diabetic Level > 8% Poorly Controlled Diabetic Level H-CMP Reviewed date:12/01/2024 10:41:06 PM Interpretation: Performing [...] AGRATIO 1.3 1.1-1.8 ALP 75 38-126 U/L H-Lipid Panel Reviewed date:12/01/2024 10:41:05 PM Interpretation:LDL 115 Performing Lab: Notes/Report: Patient Fasting? Y TRIG 114 30-150 mg/dl CHOL 188 140-200 mg/dl DLDL 115.72 100-129 mg/dL VLDL 23 0-40 mg/dL HDL 44 40-60 mg/dl CHLHDL 4.3 1-3.5 Medications Medication SIG (Take, Route, Frequency, Duration) Notes Start Date End Date Status metFORMIN HCl ER 500 MG 1 tablet with ev ening meal Orally Once a day; Duration: 30 days 12/01/2024 Active Meclizine HCl 25 MG 1 tab(s) orally 3 ti mes a day; Duration: 10 days Active Ondansetron HCl 4 MG 1 tablet Orally 3 t imes a day prn Active Lovastatin 20 MG 1 tablet with [...] Orally every 6 hrs prn 04/16/2024 Active Immunizations Vaccine Route Administration Date Status Comme nts Fluzone Quad (6months&older) IM Intramuscular 06/03/2019 Administered Tetanus Tdap-Adacel (over 7yrs) Unknown 10/13/2018 Administered Problems Problem Type SNOMED Code ICD Code Onset Dates Problem Status W/U Status Risk Notes Problem Insomnia (888682704) Insomnia (G47.00) Active confirmed Problem Vitamin D deficiency (38094069) Vitamin D deficiency (E55.9) Active confirmed Problem Essential hypertension (89969708) Essential hypertension (I10) Active confirmed Problem Hypoglycemia (267551762) Hypoglycemia (E16.2) Active confirmed Problem Irritable bowel syndrome (92404828) IBS (irritable bowel syndrome) (K58.9) Active confirmed Problem Cardiac dysrhythmia (574074740) Cardiac dysrhythmia (I49.9) Active confirmed Problem Seasonal allergy (056539409) Seasonal allergies (J30.2) Active confirmed Problem Body mass index 40+ - severely obese (676186072) BMI 50.0-59.9, adult (Z68.43) Active confirmed Problem Mixed hyperlipidemia (537073535) Mixed hyperlipidemia (E78.2) Active confirmed Problem Insomnia (740360833) Other insomnia (G47.09) Active confirmed Problem Gastroesophageal reflux disease (569056054) GERD without esophagitis (K21.9) Active confirmed Problem Acquired hypothyroidism (130928730) Acquired hypothyroidism (E03.9) Active confirmed Problem Sciatica (83323096) Right sided sciatica (M54.31) Active confirmed Problem Dyslipidemia (097331231) Dyslipidemia (E78.5) Active confirmed Problem Type II diabetes mellitus without complication (597676099) Type 2 diabetes mellitus without complication, without long-term current use of insulin (E11.9) Active confirmed Problem Generalized anxiety disorder (39986837) LUIS (generalized anxiety disorder) (F41.1) Active confirmed Problem Impaired vision (101518001) Impaired vision (H54.7) Active confirmed Vital Signs Heart Rate 97 /min 11/26/2024 Blood pressure diastolic 80 mm Hg 11/26/2024 Height 63 in 11/26/2024 Blood pressure systolic 150 mm Hg 11/26/2024 Weight 291 lbs 11/26/2024 BMI 51.54 kg/m2 11/26/2024 Encounters Encounter Location Date Provider Diagnosis [facility] [address] [facility] [address] [place], [place] [address], [place] [id number] 11/26/2024 Meir Escobar Type 2 diabetes jared itus without complication, without long-term current use of insulin E11.9 ; Essential hypertension I10 ; Dyslipidemia E78.5 ; LUIS (generalized anxiety disorder) F41.1 and Impaired vision H54.7 [facility] [address] [place], [place] [id number] 04/15/2024 R Yfn Shawn [facility] [address] [place], [place] [id number] 06/27/2024 R Yfn Shawn [facility] [address] [place], [place] [id number] 08/20/2024 R Yfn Shawn LUIS (generalized anx iety disorder) F41.1 [facility] [address] [place], [place] [id number] 11/13/2024 R Yfn Shawn [facility] [address] [place], [place] [id number] 12/01/2024 R Yfn Shawn [facility] [address] [place], [place] [id number] 12/09/2024 R Yfn Shawn [facility] [address] [place], [place] [id number] 12/10/2024 R Yfn Shawn [facility] [address] [place], [place] [id number] 03/06/2025 R Yfn Shawn Acquired hypothyroid ism E03.9 ; Essential hypertension I10 ; Dyslipidemia E78.5 ; Vitamin D deficiency E55.9 and Type 2 diabetes mellitus without complication, without long-term current use of insulin E11.9 Assessments Encounter Date Diagnosis (ICD Code) Assessment Notes Treatment Notes Treatment Clinical Notes Section Notes 08/20/2024 LUIS (generalized anxiety disorder) (ICD-10 - F41.1) 11/26/2024 Essential hypertension (ICD-10 - I10) 11/26/2024 Type 2 diabetes mellitus without complication, without long-term current use of insulin (ICD-10 - E11.9) 03/06/2025 Acquired hypothyroidism (ICD-10 - E03.9) 03/06/2025 Essential hypertension (ICD-10 - I10) 11/26/2024 Dyslipidemia (ICD-10 - E78.5) 11/26/2024 LUIS (generalized anxiety disorder) (ICD-10 - F41.1) 03/06/2025 Dyslipidemia (ICD-10 - E78.5) 11/26/2024 Impaired vision (ICD-10 - H54.7) Advise she follow-up with Dr. Escalera for evaluation 03/06/2025 Vitamin D deficiency (ICD-10 - E55.9) 03/06/2025 Type 2 diabetes mellitus without complication, without long-term current use of insulin (ICD-10 - E11.9) Plan Of Treatment Pending Test Test Name Order Date Cologuard 07/11/2023 H-TSH 03/06/2025 H-VITAMIN D 03/06/2025 H-Lipid Panel 03/06/2025 H-CMP 03/06/2025 H-Glycohemoglobin A1C 03/06/2025 H-T4 free 03/06/2025 Insurance Providers Payer Name Payer Address Payer Phone Subscriber Number Group Number Insured Name Patient Relationship to Insured Coverage Start Date Coverage End Date [facility] [employer] [address] [place] [address] [id number] Tracie Sterling Self - patient is the [...] Hospitalization History Reason Date(Month/Year) Heart Palpitations - [facility] ER 04/27/2022 Heart Palpitations- [facility] ER 11/27/2019 Hypoglycemia- [facility] UTC 07/05/2018 Back Pain- [facility] ER 06/09- [place] Palsy- [facility] ER 03/15/2018 Chest Pain- [facility] ER 07/25/2013 Back Pain- [facility] ER 02/2013
--- OUTSIDE RECORDS SUMMARY | 2025-03-15 08:28 | XMS_ITS | Clinical Summary ---
Author Organization [employer] ([place], [place], [place], [place]) Address [address] [place] [address] Care Team Providers Care Linotype Mechanic Name Role Phone Unavailable Primary Care Provider [...]
--- OUTSIDE RECORDS SUMMARY | 2025-03-15 08:28 | XMS_ITS | Data Portability ---
Author Organization [facility] Address [address] [facility] [address] [place] [address] Assessment Encounter Date Assessment Date Assessment LastModified [...] She requests to have this done at [facility]. She will have the images placed [...] Referral physical therapy back referral 2018 019 [facility] (Scheduling), [address], [place], [address], 9 16:18:07 Procedures None recorded. Surgeries None recorded. Imaging XR, lumbosacral spine, 2 or 3 view, bending only 2018 019 [facility] (Scheduling), [address], [place], [address], 9 09:19:16 MRI, lumbar spine, w/wo contrast - WITH SEDATION 2018 019 [facility] Central Scheduling, [address] [facility] , [place], [address], 9 16:07:55 Medication Orders None recorded. Patient TargetsNo targets recorded. Patient Instructions Encounter Date Encounter Id Patient Instructions Last Modified By Organization Details Last Modified Time 11/20/2018 [id number] Thank you for visiting [facility] at [facility] today. At today's visit the following were addressed: - SCHEDULE L3L4 LESI Thank you for visiting the [facility]. -Because of the high volume [...] typically not make a medication substitution or change control analyst the telephone. -Acute exacerbations of pain and flare ups are quite common in chronic pain states and need to be dealt with as part of the continuous churn buttermaker management plan. Please make an appointment with us if you wish to discuss a matter in any detail. Should you still need to call, please do so at . For additional information and services provided by our clinic you may visit our Pain Management Clinic website at: [email or web address] Thank you for choosing [facility]. It was a pleasure to [...] only No observ ation record ed. [email or web address] [facility] [address], [id number], 08/03/2018 15:14:11 10/09/19 19 10/08/2018 MRI, lumba r spine , w/o contr ast No observ ation record ed. [email or web address] [facility] , [place], [address], 10/16/2018 14:25:24 Result Notes None recorded. Problems No Known Problems Procedures Surgical History Date Name Laterality Status Provider Name and Address Organization Details Recorded Time lumbar microdiscectomy completed Ann Marie Mcmillan [facility] 07/09/2018 15:13:13 lumbar spinal fusion completed Ann Marie Mcmillan [facility] 07/09/2018 15:13:20 hysterectomy completed [facility] Hipolito [facility] 07/09/2018 15:13:28 Imaging Results None recorded. Procedure Notes None recorded. Medical Equipment None Reported. Allergies Allergen ID Allergen Name Allergen Category Reaction Reaction Severity Criticality Documentation Date Start Date Code Code System Note Provider Name and Address Organization Details Recorded Time 104608 morphine sulfate medicatio n Not available Not available Not available 05/05/20162008 60160 RxNorm Comme nt: Creat ed By: Les Jesus ;Crea maurice Date: 9:42: 19 AM; Not Available [facility] 6 11:16:07 579160 Demerol medicatio n Not available Not available Not available 05/05/20162008 58810 1 RxNorm Comme nt: Creat ed By: Les Cherrya maurice Date: 9:41: 58 AM; Not Available [facility] 6 14:10:09 Medications Name Sig Start Date [...] Body mass index (BMI) Body weight Systolic And Diastolic Provider Name and Address Organization Details Last Updated DateTime 07/09/2018 162.56 cm 49.3 kg/m2 065274.01 g 162/88 mm[Hg] Ann Marie Mcmillan [facility] 07/09/2018 15:19:36 Date Recorded Body height Body mass index (BMI) Body weight Systolic And Diastolic Provider Name and Address Organization Details Last Updated DateTime 11/20/2018 162.56 cm 50.1 kg/m2 743643.97 g 150/92 mm[Hg] Mary Sanchez [facility] 11/20/2018 09:03:52 Social History Question Answer Notes LastModified by Organizat ion Details LastModified Time Tobacco Smoking Status Never Smoker Ann Marie Mcmillan [facility] 07/09/2018 15:12:50 What Was The Date Of [...] Diagnosis SNOMED-CT Code Diagnosis ICD10 Code Diagnosis IMO Codes Diagnosis Note [id number] CHAPARRITA BRAMBILA PA-C [facility] [address] [place] [address] 07/09/2018 14:45:15 07/10/2018 09:53:03 Lumbar radiculopathy 024685070 M54.16 [id number] KATRIN SANDHU MD [facility] [address] [place] [address] 11/20/2018 08:36:52 11/23/2018 08:56:05 Lumbar radiculopathy 904301125 M54.16 Health Concerns Section Related Observation LastModified by Organization Detai ls LastModified Time None Recorded Concern Status LastModified by Organization Details LastModified Time None Recorded Advance Directives Directive None Recorded Payers Insurance Date Sequence Insurance Name Policy Number Policy Kuhn Covered Member ID Kuhn Member ID Guarantor Name 05/06/2020 1 [place] [id number] Gal Sterling [id number] Tracie Juli Hallie Notes Date Note Type Note Provider Name [...] with minimal improvement. CHAPARRITA BRAMBILA PA-C [address] [place], [address], [facility] 07/09/2018 15:42:05 11/20/2018 text/html [...] benefit from flexeril. KATRIN SANDHU MD [address] [place], [address], [facility] 11/20/2018 10:09:19 OBGyn Episode No OBEpisode recorded.
--- OUTSIDE RECORDS SUMMARY | 2025-03-15 08:29 | XMS_ITS | Referral Summary ---
Author Organization [employer] ([place], [place], [place], [place]) Address [address] [place] [address] Care Team Providers Care Equipment Superintendent Name Role Phone Unavailable Primary Care Provider [...]
[2025-03-15 10:30] LABS: Alanine Aminotransferase 50 U/L (12-78); Albumin Level 4.5 g/dl (3.5-5.0); Albumin/Globulin Ratio 1.6 (1.1-1.8); Alkaline Phosphatase 83 U/L (38-126); Anion Gap 19.3 mEq/L (5-15); Aspartate Amino Transferase 41 U/L (14-36); Bilirubin,Total 0.8 mg/dl (0.2-1.3); Blood Urea Nitrogen 15 mg/dl (7-17); Calcium 9.5 mg/dl (8.4-10.2); Carbon Dioxide 20 mmol/L (22.0-30.0); Chloride 106 mmol/L (98-107); Cholesterol 189 mg/dl (140-200); Creatinine,Serum 0.80 mg/dl (0.52-1.04); Estimated Glomerular Filt Rate 72 ml/min (>60); GFR (African American) 88 ML/MIN (>60); Globulin 2.8 g/dL (1.3-3.2); Glucose 140 mg/dl (74-100); HDL Cholesterol 45 mg/dl (40-60); Potassium 4.3 mmoL/L (3.5-5.1); Sodium 141 mmol/L (136-145); Total Protein,Serum 7.3 g/dl (6.3-8.2); Triglycerides 148 mg/dl (30-150)
[2025-03-15 10:40] LABS: 25-OH Vitamin D, Total 44.7 ng/mL (30-100)
[2025-03-15 10:44] LABS: Free T4 (Free Thyroxine) 0.96 ng/dl (0.78-2.19)
[2025-03-15 11:01] LABS: Thyroid Stimulating Hormone 3.45 uIU/mL (0.465-4.68)
[2025-03-15 13:13] LABS: Hemoglobin A1C 5.7 % (4.0-6.0)
== END 2025-03-15 23:59 | disposition home or self-care (01) ==
LOC: LAB 08:25
PROVIDERS: PCP Family Medicine; Visit Provider Family Medicine
DX: E55.9 Vitamin D deficiency, unspecified (principal); E78.5 Hyperlipidemia, unspecified; I10 Essential (primary) hypertension; E03.9 Hypothyroidism, unspecified; E11.9 Type 2 diabetes mellitus without complications
CPT/HCPCS: 36415; 80053; 80061; 82306; 83036; 84439; 84443

== ENCOUNTER 2025-04-13 10:47 | Emergency (ER) | payer BC, SELFPAY ==
[2025-04-13] VITALS (7 sets, daily range): BP systolic 154–211; BP diastolic 82–104; PULSE 69–87; RESP 16–18; TEMP 36.6; O2SAT 94–100; BMI 49.2
--- OUTSIDE RECORDS SUMMARY | 2025-04-13 10:55 | XMS_ITS | Clinical Summary ---
Author Organization [employer] ([place], [place], [place], [place], [place]) Address [address] [place] [address] Care Team Providers Care Advice Line Rn Name Role Phone Unavailable Primary Care Provider [...]
--- OUTSIDE RECORDS SUMMARY | 2025-04-13 10:56 | XMS_ITS | Referral Summary ---
Author Organization [employer] ([place], [place], [place], [place], [place]) Address [address] [place] [address] Care Team Providers Care Director [employer] Name Role Phone Unavailable Primary Care Provider [...]
--- NOTE | 2025-04-13 11:08 | ED_ITS ---
Discharge Plan Disposition Patient Disposition: Home, Self-Care Condition: Good Prescriptions Prescriptions: New meclizine 12.5 mg tablet 25 mg PO DAILY PRN (Reason: motion sickness) Qty: 30 0RF fluticasone propionate [Flonase Allergy Relief] 50 mcg/actuation spray,suspension 1 spray intranasal DAILY PRN (Reason: allergy symptoms) Qty: 16 0RF Rx Instructions: administer into each nostril Afrin (oxymetazoline) 0.05 % mist 2 spray intranasal BID PRN (Reason: nasal congestion) 3 Days Qty: 15 0RF No Action lovastatin 20 mg tablet 20 mg PO DAILY Patient Comments: TAKE 1 TABLET BY MOUTH DAILY WITH THE EVENING MEAL diazepam [Valium] 2 mg tablet 2 mg PO BID PRN bisoprolol fumarate 5 mg tablet 2.5 mg PO DAILY Qty: 90 1RF diltiazem HCl 120 mg tablet 60 mg PO QHS Referrals Follow up/Referrals: Moises Escobar MD [Primary Care Provider, Medical] - See instructions Lorena Honeycutt MD [Staff Physician, Neurology] - See instructions Referral Note: vertigo- concern for Meniere's disease Activity Restrictions/Add. Instructions Additional Instructions/Restrictions: Please take meclizine as needed per your prescription for vertiginous symptoms. Please follow-up with neurology outpatient. Please use Afrin and Flonase to treat your congestion, please do not overuse Afrin. If symptoms worsen, or new symptoms develop, please return to the emergency department. Clinical Impressions Clinical Impression: Vertigo Instructions Patient Instructions: DI for Vertigo Print Language Print Language: Russian Discharge ED Provider: Gabino Hensley General Adult HPI General Chief complaint: Dizziness Stated complaint: dizziness, congestion Time Seen by Provider: 04/13/25 10:57 Mode of Arrival: Ambulatory Source of Information: Patient Description of Symptoms (Recalled from ER Triage Doc. by RN): PT PRESENTS TO ED FOR DIZZINESS THAT STARTED LAST NIGHT WHEN SHE GOT UP TO GO TO THE BATHROOM. REPORTS HX OF VERTIGO. STATES THE DIZZINESS IS PERSISTENT. History of Present Illness HPI narrative: This patient is a 64-year-old female with past medical history of vertigo who presents to the emergency department with vertiginous symptoms. She reports that last night she had an acute worsening of her vertigo. She always has some degree of vertigo which she believes is due to M?ni?re's disease. She reports increased nasal congestion and cough over the last 3 to 4 days. She endorses that this will often trigger worsening episodes of vertigo. Her vertiginous symptoms were accompanied by increasing ear popping sensation and mild increase in tinnitus. In the emergency department today the patient is hemodynamically stable, able to ambulate, and experiencing mild vertiginous symptoms. Related Data Home Medications ?Medication ?Instructions ?Recorded ?Confirmed diltiazem HCl 120 mg tablet 60 mg PO QHS Hypertension 07/05/22 02/04/25 lovastatin 20 mg tablet 20 mg PO DAILY 11/28/2301/11 diazepam 2 mg tablet (Valium) 2 mg PO BID PRN 07/24/24 02/04/25 Previous Rx's ?Medication ?Instructions ?Recorded bisoprolol fumarate 5 mg tablet 2.5 mg (1/2 x 5 mg) PO DAILY 06/24/24 Hypertension #90 tabs fluticasone propionate 50 1 spray intranasal DAILY PRN 04/13/25 mcg/actuation nasal allergy symptoms #16 grams spray,suspension (Flonase Allergy Relief) meclizine 12.5 mg tablet 25 mg (2 x 12.5 mg) PO DAILY PRN 04/13/25 motion sickness #30 tabs oxymetazoline 0.05 % nasal mist 2 spray intranasal BID PRN nasal 04/13/25 (Afrin (oxymetazoline)) congestion 3 days #15 mL Allergies Allergy/AdvReac Type Severity Reaction Status Date / Time amoxicillin Allergy Intermediate Hives Verified 04/13/25 10:25 fluticasone (From Flonase) Allergy Intermediate swelling Verified 04/13/25 10:25 of lips meperidine (From DEMEROL) Allergy Mild Flushing Verified 04/13/25 10:25 morphine (MORPHINE) Allergy Mild Hives Verified 04/13/25 10:25 Penicillins Allergy Swelling Verified 04/13/25 10:25 of Lip/Tongue/Throat PFSH [facility] Disclaimer: The information contained in this section may have been updated after the patient was seen, as this information can be updated by other users. Medical History (Updated 04/13/25 @ 12:20 by Gabino Hensley MD) Diabetes mellitus Hypertension Duodenal ulcer Diastolic dysfunction Hyperlipidemia Sinus tachycardia Dizziness Abnormal electrocardiogram [ECG] [EKG] Vitamin D deficiency (~11/27/17) Actinic keratoses Hypoglycemia Psoriasiform eczema Anxiety Labyrinthitis Surgical History H/O: hysterectomy History of back surgery Family History Other Family history of stroke Social History Smoking Status: Never smoker alcohol intake: never substance use type: denies use current occupational status: other Travel in the last 8 weeks?: None household members: spouse housing: house caffeine: No Have you lived/traveled outside [place] in past 30 days?: No Contact w/someone who lives/traveled outside US past 30 days?: No Exposure to someone with infectious disease in past 14 days?: No Do you have a fever (greater than 100.4 F or 38 C)?: No Have you tested positive for COVID-19?: No Exposed to someone with COVID-19 in past 14 days?: No Do you have a sore throat?: No Do you have a cough?: No Do you have any weakness?: No Do you have any diarrhea?: No Are you experiencing any unusual bleeding?: No Do you have any muscle aches/pain?: No Do you have any abdominal pain?: No Are you experiencing loss of taste or smell?: No Other Medical History Have you received the Flu Vaccine for this season: No Have you received the Pneumonia Vaccine: No ROS Obtained: Yes All systems reviewed & no additional complaints except as documented Physical Exam General General appearance: alert and in no apparent distress Head Head exam: atraumatic and normocephalic Eye Eye exam: Present normal appearance, PERRL and EOMI ENT ENT exam: Present normal exam and normal external ear exam Neck Neck exam: Present normal inspection, full ROM and trachea midline Chest Chest inspection: Present normal inspection and symmetric chest wall rise; Absent tenderness Respiratory Respiratory exam: Absent respiratory distress Cardiovascular Cardiovascular exam: Present regular rate, normal rhythm and other (appears warm and well perfused) Abdominal Exam Abdominal exam: Absent distention or tenderness Extremities Exam Extremities exam: Present normal inspection and full ROM Neurological Exam Neurological exam: Present alert, oriented X3 and other (Patient exhibits normal [id number] testing bilaterally, ocular exam shows no nystagmus either horizontally or vertically. Patient is able to balance with her eyes closed exhibiting normal proprioception. She is negative for both Romberg sign and pronator drift) Psychiatric Psychiatric exam: Present normal affect Skin Skin exam: Present warm and dry Medical Decision Making Medical Records Medical records reviewed: Yes I reviewed the patient's medical records. Screening: Per USPSTF and CDC recommendations, given the prevalence of disease in our region, it is our hospital?s policy to screen for HIV and viral Hepatitis for all patients aged 18 and over and those with ongoing risk factors. Kt Inquiry Pt receiving controlled substance: No Kt was queried for this patient: No Vital Signs: 04/13/25 10:54 04/13/25 10:55 04/13/25 10:55 Temperature 97.9 F 97.9 F Temperature Source Oral Pulse Rate 87 84 Pulse Rate [Left Radial] 84 Respiratory Rate 16 16 Blood Pressure 211/103 H 211/103 H Blood Pressure [Right Arm] 211/103 H Blood Pressure Mean [Right Arm] 139 02 Sat by Pulse Oximetry 98 100 100 Oxygen Delivery Method Room Air 04/13/25 11:00 04/13/25 11:30 04/13/25 11:45 Temperature Temperature Source Pulse Rate 82 75 72 Pulse Rate [Left Radial] Respiratory Rate Blood Pressure 199/104 H 159/82 H 154/85 H Blood Pressure [Right Arm] Blood Pressure Mean [Right Arm] 02 Sat by Pulse Oximetry 97 96 96 Oxygen Delivery Method Room Air Room Air Room Air 04/13/25 12:00 Temperature Temperature Source Pulse Rate 69 Pulse Rate [Left Radial] Respiratory Rate Blood Pressure 157/84 H Blood Pressure [Right Arm] Blood Pressure Mean [Right Arm] 02 Sat by Pulse Oximetry 94 L Oxygen Delivery Method Room Air Lab Data Lab results reviewed: Yes I reviewed the patient's lab results. Orders (Tests/Meds): ED MEDICATIONS Discontinued Medications Generic Name Dose Route Start Last Admin Trade Name Freq PRN Reason Stop Dose Admin Meclizine HCl 25 mg 04/13/25 11:09 04/13/25 11:14 Meclizine 25mg Tablet PO 04/13/25 11:10 25 mg ONCE ONE Administration Medical Decision Narrative: MDM In summary, this 64-year-old female presents to the emergency department today with vertiginous symptoms. Initial evaluation the patient comfortable and hemodynamically stable. Differential diagnosis includes but is not limited to posterior circulation stroke, benign paroxysmal positional vertigo, M?ni?re's disease, vestibular neuritis. On my initial evaluation the patient is comfortable and hemodynamically stable. I performed an extremely thorough neurologic exam. The patient has no nystagmu s, no pronator drift, no positive Romberg sign, normal proprioception and coordination. Based on these findings and the patient's clinical history I think it is most likely she is having a flareup of her known vertiginous process. Ear exam showed bilateral tympanic effusions. With intermittent symptoms, mild tinnitus, popping sensation in ears, and her history I think it is far more likely symptoms are coming from the inner ear that a posterior circulation stroke. I discussed this with the patient and she agreed with me and felt comfortable with deferring stroke workup at this time. We made a plan to treat the patient's symptoms with meclizine and reassess. She reported significant improvement and on reassessment was comfortable with discharged home. Critical Care Critical Care Time Critical Care Time: No
[2025-04-13] MEDS: MECLIZINE 25MG TABLET 25 MG PO (11:14)
--- NOTE | 2025-04-13 12:30 | [facility].EDGENADL ---
Discharge Plan Disposition Patient Disposition: Home, Self-Care Condition: Good Prescriptions Prescriptions: New meclizine 12.5 mg tablet 25 mg PO DAILY PRN (Reason: motion sickness) Qty: 30 0RF fluticasone propionate [Flonase Allergy Relief] 50 mcg/actuation spray,suspension 1 spray intranasal DAILY PRN (Reason: allergy symptoms) Qty: 16 0RF Rx Instructions: administer into each nostril Afrin (oxymetazoline) 0.05 % mist 2 spray intranasal BID PRN (Reason: nasal congestion) 3 Days Qty: 15 0RF No Action lovastatin 20 mg tablet 20 mg PO DAILY Patient Comments: TAKE 1 TABLET BY MOUTH DAILY WITH THE EVENING MEAL diazepam [Valium] 2 mg tablet 2 mg PO BID PRN bisoprolol fumarate 5 mg tablet 2.5 mg PO DAILY Qty: 90 1RF diltiazem HCl 120 mg tablet 60 mg PO QHS Referrals Follow up/Referrals: Moises Escobar MD [Primary Care Provider, Medical] - See instructions Lorena Honeycutt MD [Staff Physician, Neurology] - See instructions Referral Note: vertigo- concern for Meniere's disease Activity Restrictions/Add. Instructions Additional Instructions/Restrictions: Please take meclizine as needed per your prescription for vertiginous symptoms. Please follow-up with neurology outpatient. Please use Afrin and Flonase to treat your congestion, please do not overuse Afrin. If symptoms worsen, or new symptoms develop, please return to the emergency department. Clinical Impressions Clinical Impression: Vertigo Instructions Patient Instructions: DI for Vertigo Print Language Print Language: Citizen Of [place] Discharge ED Provider: Gabino Hensley Adult [facility] General Chief complaint: Dizziness Stated complaint: dizziness, congestion Time Seen by Provider: 04/13/25 10:57 Mode of Arrival: Ambulatory Source of Information: Patient Description of Symptoms (Recalled from ER Triage Doc. by RN): PT PRESENTS TO ED FOR DIZZINESS THAT STARTED LAST NIGHT WHEN SHE GOT UP TO GO TO THE BATHROOM. REPORTS HX OF VERTIGO. STATES THE DIZZINESS IS PERSISTENT. Related Data Home Medications ?Medication ?Instructions ?Recorded ?Confirmed diltiazem HCl 120 mg tablet 60 mg PO QHS Hypertension 07/05/22 02/04/25 lovastatin 20 mg tablet 20 mg PO DAILY 11/28/23 02/04/25 diazepam 2 mg tablet (Valium) 2 mg PO BID PRN 07/24/24 02/04/25 Previous Rx's ?Medication ?Instructions ?Recorded bisoprolol fumarate 5 mg tablet 2.5 mg (1/2 x 5 mg) PO DAILY 06/24/24 Hypertension #90 tabs fluticasone propionate 50 1 spray intranasal DAILY PRN 04/13/25 mcg/actuation nasal allergy symptoms #16 grams spray,suspension (Flonase Allergy Relief) meclizine 12.5 mg tablet 25 mg (2 x 12.5 mg) PO DAILY PRN 04/13/25 motion sickness #30 tabs oxymetazoline 0.05 % nasal mist 2 spray intranasal BID PRN nasal 04/13/25 (Afrin (oxymetazoline)) congestion 3 days #15 mL Allergies Allergy/AdvReac Type Severity Reaction Status Date / Time amoxicillin Allergy Intermediate Hives Verified 04/13/25 10:25 fluticasone (From Flonase) Allergy Intermediate swelling Verified 04/13/25 10:25 of lips meperidine (From DEMEROL) Allergy Mild Flushing Verified 04/13/25 10:25 morphine (MORPHINE) Allergy Mild Hives Verified 04/13/25 10:25 Penicillins Allergy Swelling Verified 04/13/25 10:25 of Lip/Tongue/Throat PFSH PFSH Disclaimer: The information contained in this section may have been updated after the patient was seen, as this information can be updated by other users. Medical History (Updated 04/13/25 @ 12:20 by Gabino Hensley MD) Diabetes mellitus Hypertension Duodenal ulcer Diastolic dysfunction Hyperlipidemia Sinus tachycardia Dizziness Abnormal electrocardiogram [ECG] [EKG] Vitamin D deficiency (~11/27/17) Actinic keratoses Hypoglycemia Psoriasiform eczema Anxiety Labyrinthitis Surgical History H/O: hysterectomy History of back surgery Family History Other Family history of stroke Social History Smoking Status: Never smoker alcohol intake: never substance use type: denies use current occupational status: other Travel in the last 8 weeks?: None household members: spouse housing: house caffeine: No Have you lived/traveled outside US in past 30 days?: No Contact w/someone who lives/traveled outside US past 30 days?: No Exposure to someone with infectious disease in past 14 days?: No Do you have a fever (greater than 100.4 F or 38 C)?: No Have you tested positive for COVID-19?: No Exposed to someone with COVID-19 in past 14 days?: No Do you have a sore throat?: No Do you have a cough?: No Do you have any weakness?: No Do you have any diarrhea?: No Are you experiencing any unusual bleeding?: No Do you have any muscle aches/pain?: No Do you have any abdominal pain?: No Are you experiencing loss of taste or smell?: No Other Medical History Have you received the Flu Vaccine for this season: No Have you received the Pneumonia Vaccine: No Physical Exam General General appearance: alert and in no apparent distress Medical Decision Making Medical Records Screening: Per USPSTF and CDC recommendations, given the prevalence of disease in our region, it is our hospital?s policy to screen for HIV and viral Hepatitis for all patients aged 18 and over and those with ongoing risk factors. Vital Signs: 04/13/25 10:54 04/13/25 10:55 04/13/25 10:55 Temperature 97.9 F 97.9 F Temperature Source Oral Pulse Rate 87 84 Pulse Rate [Left Radial] 84 Respiratory Rate 16 16 Blood Pressure 211/103 H 211/103 H Blood Pressure [Right Arm] 211/103 H Blood Pressure Mean [Right Arm] 139 02 Sat by Pulse Oximetry 98 100 100 Oxygen Delivery Method Room Air 04/13/25 11:00 04/13/25 11:30 04/13/25 11:45 Temperature Temperature Source Pulse Rate 82 75 72 Pulse Rate [Left Radial] Respiratory Rate Blood Pressure 199/104 H 159/82 H 154/85 H Blood Pressure [Right Arm] Blood Pressure Mean [Right Arm] 02 Sat by Pulse Oximetry 97 96 96 Oxygen Delivery Method Room Air Room Air Room Air 04/13/25 12:00 Temperature Temperature Source Pulse Rate 69 Pulse Rate [Left Radial] Respiratory Rate Blood Pressure 157/84 H Blood Pressure [Right Arm] Blood Pressure Mean [Right Arm] 02 Sat by Pulse Oximetry 94 L Oxygen Delivery Method Room Air Orders (Tests/Meds): ED MEDICATIONS Discontinued Medications Generic Name Dose Route Start Last Admin Trade Name Freq PRN Reason Stop Dose Admin Meclizine HCl 25 mg 04/13/25 11:09 04/13/25 11:14 Meclizine 25mg Tablet PO 04/13/25 11:10 25 mg ONCE ONE Administration
== END 2025-04-13 12:41 | disposition home or self-care (01) ==
PROVIDERS: Emergency Provider Student in an Organized Health Care Education/Training Program; PCP Family Medicine
DX: R42 Dizziness and giddiness (principal); R09.81 Nasal congestion
CPT/HCPCS: 99283